=== PATIENT | female | born 1975 | race Caucasian/White ===

== ENCOUNTER 2017-04-07 17:43 | Observation (INO) | payer MEDICAID, MEDICARE ==
[~2017-04-07] VITALS: Ht 170.2 cm; Wt 109.3 kg
[~2017-04-07 17:43] MED LIST: ACET-2267 PO; ALBUNEBRX INH; ALLP300T PO; AMIT50TA3; AMIT50TA3 PO; BCL10T; BUDE6HFA IH; C250T; CEFE1VIA10 IV; CETI10TA17 PO; CHOL4PAC19 PO; CIPR-226 PO; CLIN150C17 PO; CTRZ10T; CYCL10TA9 PO; DCS100C PO; DIAZ-345 PO; DIAZ10TA; DIAZ10TA PO; DIAZ10TA3 PO; DIAZ5TAB49; DULO30CA; DULO60CA58 PO; DULO60CA6 PO; EXEN5PEN3; FAMO20TA5 PO; FEBU80TA PO; FENO135C; FENO135C PO; FENO160T3; FENO200C PO; FLUT16SP22 NS; GABA600T2 PO; GABA800T2 PO; GBPN400C; GBPN400C PO; GBPN600T; GMFB600T PO; HYOS0.3710 PO; IBP600T1 PO; IBP800T PO; INSASP10V SC; INSASP1U SC; INSU100I14 SC; INSU100I14 SQ; INSU100I16 SQ; INSU100I17 SQ; INSU100I29 SC; INSU100V3 SQ; L.AC1CAP6 PO; LACT1CAP8 PO; LD5PT TOP; LEVE1U SQ; LEVO175T3 PO; LEVO175T5 PO; LEVO175T6; LEVO500T69 PO; LIPA1CAP2 PO; LIRA0.6P SQ; LIRA0.6P2 SQ; LISI10TA PO; LORA10TA2 PO; LRT10T; LUBI24CA6 PO; LVT.025T PO; LVT.15T PO; LYRICA; MELA1TAB16 PO; MELA5TAB PO; METFORMIN; METH-53; METH4TAB PO; METH750T3; METH750T3 PO; METO-354 PO; METO10TA3 PO; METR500T PO; MNTL10T PO; MONT10TA24 PO; MTF500T; MTH750T; NAPR-243 PO; NEUROTIN; NF-METANX; OMEG1CAP PO; OMEG1CAP58 PO; OMEP40CA36 PO; ONDA4TAB2 PO; ONDN4T PO; OXC40TCR PO; OXYC-272 PO; OXYC10TA7 PO; OXYC10TA8; OXYC1TAB95 PO; OXYC40TA49 PO; OXYC60TA9 PO; PARO7.5C PO; PEG250PW; PERCOCET; PGLT30T; PHEN-452 PO; POLY17PO23 PO; POLY255P PO; PRD20T PO; RESTORIL; SENN-40 PO; SITA100T PO; SITA1TAB6; SITA1TAB6 PO; SNN187T; VARE1TAB21 PO; WRF2T; novolog SC; vancomycin
[2017-04-07] MEDS ORDERED: ONDANSETRON 4 MG/2 ML (SDV) Z0FRAN ONE (18:05)
[2017-04-07] MEDS ORDERED: NS IV 1000 ML 1,000 ML ONE (18:06)
[2017-04-07] MEDS ORDERED: NS IV 1000 ML 1,000 ML IV ONE ×2 (18:10→18:37)
--- NOTE | 2017-04-07 18:10 | ED GI ---
General Stated Complaint: BLOOD SUGAR PROBLEMS Source of Information: Patient Exam Limitations: No Limitations History of Present Illness Time Seen By Provider: 18:04 Initial Comments Patient presents to ER by ambulance by private conveyance with a chief complaint of blood sugars above 500 and nausea severe and sweats. She denies any fever she is aware of but she has a history of many back surgeries and this is given her some stronger neuropathy. She takes 60 units of Humalog in the morning as well as Terrence even says she's been taking her medicines routinely but recently had her insulin stepped up by her PCP. She has been logging her blood sugars and in the morning they're usually in the upper 200s to 300s. She is not sure why her blood sugars are out of control now. She has not been on any steroids. She quit smoking 6 months ago. She has no cough nor she short of breath or having any chest pain. She has no cardiac history. She is having urinary frequency and polydipsia The patient takes oxycodone 10 mg every 4 hours by mouth as well as OxyContin 40 mg twice a day however should not take that this morning. She is not having any pain in her abdomen. She hasn't passed use many laxatives try control her constipation from opiates and recently tried Moban take but that made her violently ill so she is not using it presently. 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 She is also short of breath today. She takes treciba 100 units with lunch and 120 units with dinner. She takes Humalog on a sliding scale but turns out she is taking about 60 units after every meal. Allergies and Home Medications Allergies Coded Allergies: Penicillins (Verified Allergy, Mild, HIVES; HAS RECEIVED ANCEF W/O PROBLEMS, 08/06/13) Home Medications Acetaminophen 500 Mg Tablet, 500 MG PO EVERY 4-6 HOURS PRN for PAIN, (Reported) Albuterol Sulfate 2.5 Mg/3 Ml Vial.neb, 2.5 MG INH QID PRN for SHORTNESS OF BREATH, (Reported) Budesonide/Formoterol Fumarate 10.2 Gm Hfa.aer.ad, 2 PUFF IH BID PRN for SHORTNESS OF BREATH, (Reported) Duloxetine HCl 60 Mg Capsule.dr, 60 MG PO HS, (Reported) Febuxostat 80 Mg Tablet, 80 MG PO HS, (Reported) Fenofibrate,Micronized 200 Mg Capsule, 200 MG PO HS, (Reported) Insulin Aspart 300 Units/3 Ml Solution, SC AC, (Reported) Insulin Detemir 100 Unit/1 Ml Insuln.pen, 100 UNITS SC BID, #30 Prescribed by: BENNETT WILSON on 05/20/15 1304 L.acidoph & Paracasei,B.lactis 1 Each Capsule, 1 CAP PO DAILY, (Reported) Levothyroxine Sodium 175 Mcg Tablet, 175 MCG PO HS, (Reported) Lipase/Protease/Amylase 1 Each Capsule.dr, 4 CAP PO AC, (Reported) Loratadine 10 Mg Tablet, 10 MG PO HS, (Reported) Lubiprostone 24 Mcg Capsule, 24 MCG PO HS, (Reported) Montelukast Sodium 10 Mg Tablet, 10 MG PO HS, (Reported) Omeprazole 40 Mg Capsule.dr, 40 MG PO HS, (Reported) Oxycodone HCl 40 Mg Tab.er.12h, 40 MG PO BID, (Reported) Oxycodone HCl 10 Mg Tablet, 10 MG PO Q4H PRN for PAIN, (Reported) Review of Systems Constitutional: chills, diaphoresis, dizziness, No fever, malaise, weakness EENTM: Blurred Vision (chronic), No Double Vision, No Eye Pain Respiratory: Denies Cough, Denies Shortness of Air Cardiovascular: Denies Chest Pain, Denies Edema Gastrointestinal: Denies Abdomen Distended, Denies Abdominal Pain, Constipated , Denies Diarrhea, Nausea, Denies Vomiting Genitourinary: Denies Burning, Denies Discharge, Denies Flank Pain, Denies Hematuria Skin: No pruritus, No rash Psychiatric/Neurological: Denies Headache, Denies Numbness, Denies Paresthesia , Pre-Existing Deficit (ambulates with a cane), Weakness Hematologic/Lymphatic: Easy Bleeding, Easy Bruising Past Jmckarb-Wneiad-Ypdryk Hx Patient Social History Alcohol Use: Occasionally Uses Recent Foreign Travel: No Contact w/Someone Who Travel: No Immunizations Up To Date Tetanus Booster (TDap): Unknown PED Vaccines UTD: Yes Date of Pneumonia Vaccine: Sep 04, 2012 Date of Influenza Vaccine: Jul 03, 2013 Surgeries HX Surgeries: Yes (DALI FILTER , back surgeries, thyroid nodule removed) Surgeries: Neurological, Orthopedic Respiratory Hx Respiratory Disorders: Yes (uses inhaler) Respiratory Disorders: Asthma Cardiovascular Hx Cardiac Disorders: No Cardiac Disorders: Deep Vein Thrombosis, Hypertension Neurological Hx Neurological Disorders: Yes (neuropathy) Neurological Disorders: Paralysis Reproductive System Hx Reproductive Disorders: Yes (polycystic ovarian syndrome) Sexually Transmitted Disease: No HIV/AIDS: No Female Reproductive Disorders: Polycystic Ovarian Dis Genitourinary Hx Genitourinary Disorders: Yes (stress incont) Genitourinary Disorders: UTI-Chronic Gastrointestinal Hx Gastrointestinal Disorders: No Gastrointestinal Disorders: Chronic Constipation Musculoskeletal Hx Musculoskeletal Disorders: Yes Musculoskeletal Disorders: Chronic Back Pain, Gout Endocrine Hx Endocrine Disorders: Yes Endocrine Disorders: Diabetes, Insulin dep, Hypothyroidsim HEENT HX ENT Disorders: No Loss of Vision: Denies Hearing Impairment: Denies Cancer Hx Cancer: No Psychosocial Hx Psychiatric Problems: Yes Behavioral Health Disorders: Depression Integumentary HX Skin/Integumentary Disorder: Yes (rash that has developed over past few days ) Skin/Integumentary Disorders: Recent Skin Changes Blood Transfusions Hx Blood Disorders: Yes ( DVT IN LEGS AND ARMS, DALI FILTER) Adverse Reaction to a Blood Tr: No Family Medical History Family Medial History: Human immunodeficiency virus (HIV) seropositivity 03 FATHER No Family History of: Cancer Family history: Cardiovascular disease Family history: Gastrointestinal disease History of - respiratory disease Physical Exam Vital Signs VS - Last 72 Hours, by Label 04/07/17 17:55 Temp 95.3 Pulse 87 Resp 18 B/P (MAP) 186/95 Pulse Ox 95 O2 Delivery Nasal Cannula O2 Flow Rate 4.00 Capillary Refill : General Appearance: WD/WN, mild distress, obese HEENT: PERRL/EOMI, normal ENT inspection, TMs normal, pharynx normal Neck: non-tender, supple Respiratory: lungs clear, normal breath sounds Cardiovascular: normal peripheral pulses, regular rate, rhythm Peripheral Pulses: 2+ Dorsalis Pedis (R), 2+ Left Dors-Pedis (L) Gastrointestinal: normal bowel sounds, non tender, soft, no organomegaly Extremities: normal range of motion, non-tender, normal inspection, no pedal edema, no calf tenderness, normal capillary refill Back: normal inspection, no CVA tenderness Neurologic/Psychiatric: line dancer II-XII nml as tested, alert, oriented x 3 Skin: normal color, warm/dry, diaphoresis Focused Exam Lactic Acid Level Laboratory Tests Test 04/07/17 18:00 Lactic Acid Level 3.42 MMOL/L (0.50-2.00) *H Progress/Results/Core Measures Results/Orders Lab Results Laboratory Tests Test 04/07/17 18:00 04/07/17 18:46 04/07/17 19:50 Range/Units White Blood Count 5.8 4.3-11.0 10^3/uL Red Blood Count 5.32 4.35-5.85 10^6/uL Hemoglobin 15.3 11.5-16.0 G/DL Hematocrit 45 35-52 % Mean Corpuscular Volume 84 80-99 FL Mean Corpuscular Hemoglobin 29 25-34 PG Mean Corpuscular Hemoglobin Concent 34 32-36 G/DL Red Cell Distribution Width 12.4 10.0-14.5 % Platelet Count 221 130-400 10^3/uL Mean Platelet Volume 10.1 7.4-10.4 FL Neutrophils (%) (Auto) 49 42-75 % Lymphocytes (%) (Auto) 43 12-44 % Monocytes (%) (Auto) 5 0-12 % Eosinophils (%) (Auto) 3 0-10 % Basophils (%) (Auto) 1 0-10 % Neutrophils # (Auto) 2.9 1.8-7.8 X 10^3 Lymphocytes # (Auto) 2.5 1.0-4.0 X 10^3 Monocytes # (Auto) 0.3 0.0-1.0 X 10^3 Eosinophils # (Auto) 0.2 0.0-0.3 10^3/uL Basophils # (Auto) 0.0 0.0-0.1 10^3/uL Prothrombin Time 12.7 12.2-14.7 SEC INR Comment 1.0 0.8-1.4 Activated Partial Thromboplast Time 25 24-35 SEC D-Dimer 0.53 H 0.00-0.49 UG/ML Sodium Level 137 135-145 MMOL/L Potassium Level 4.0 3.6-5.0 MMOL/L Chloride Level 99 98-107 MMOL/L Carbon Dioxide Level 21 21-32 MMOL/L Anion Gap 17 H 5-14 MMOL/L Blood Urea Nitrogen 18 7-18 MG/DL Creatinine 1.02 0.60-1.30 MG/DL Estimat Glomerular Filtration Rate 59 BUN/Creatinine Ratio 18 Glucose Level 391 H 70-105 MG/DL Lactic Acid Level 3.42 *H 0.50-2.00 MMOL/L Calcium Level 10.1 8.5-10.1 MG/DL Phosphorus Level 3.7 2.3-4.7 MG/DL Magnesium Level 1.8 1.8-2.4 MG/DL Total Bilirubin 0.3 0.1-1.0 MG/DL Aspartate Amino Transf (AST/SGOT) 52 H 5-34 U/L Alanine Aminotransferase (ALT/SGPT) 46 0-55 U/L Alkaline Phosphatase 91 40-136 U/L Troponin I < 0.30 <0.30 NG/ML C-Reactive Protein High Sensitivity 0.28 0.00-0.50 MG/DL Total Protein 7.5 6.4-8.2 GM/DL Albumin 4.3 3.2-4.5 GM/DL Lipase 51 8-78 U/L Thyroid Stimulating Hormone (TSH) 0.93 0.35-4.94 UIU/ML Serum Alcohol < 10 <10 MG/DL Blood Gas Puncture Site LT RADIAL Blood Gas Patient Temperature 97.3 Arterial Blood pH 7.37 7.37-7.43 Arterial Blood Partial Pressure CO2 47 H 35-45 MMHG Arterial Blood Partial Pressure O2 94 H 79-93 MMHG Arterial Blood HCO3 27 23-27 MMOL/L Arterial Blood Total CO2 28.3 21.0-31.0 MMOL/L Arterial Blood Oxygen Saturation 98 94-100 % Arterial Blood Base Excess 1.9 -2.5-2.5 MMOL/L Turner Test YES-POS Blood Gas Ventilator Setting NO Blood Gas Inspired Oxygen 3L NC My Orders Orders - ALESSANDRA SALCIDO Ondansetron Injection (Zofran Injectio (04/07/17 18:05) Ns Iv 1000 Ml (Sodium Chloride 0.9%) (04/07/17 18:06) Alcohol (04/07/17 18:10) Arterial Blood Gas (04/07/17 18:10) Cbc With Automated Diff (04/07/17 18:10) Comprehensive Metabolic Panel (04/07/17 18:10) Drug Screen Stat (Urine) (04/07/17 18:10) Hcg,Qualitative Urine (04/07/17 18:10) Lactic Acid Analyzer (04/07/17 18:10) Lipase (04/07/17 18:10) Magnesium (04/07/17 18:10) Thyroid Stimulating Hormone (04/07/17 18:10) Troponin I (04/07/17 18:10) Ua Culture If Indicated (04/07/17 18:10) Phosphorus (04/07/17 18:10) Abdomen/Kub 1view (04/07/17 18:10) Saline Lock/Iv-Start (04/07/17 18:10) Ns Iv 1000 Ml (Sodium Chloride 0.9%) (04/07/17 18:10) Blood Culture (04/07/17 18:10) Sputum Culture (04/07/17 18:10) Protime With Inr (04/07/17 18:10) Partial Thromboplastin Time (04/07/17 18:10) O2 (04/07/17 18:10) Ondansetron Injection (Zofran Injectio (04/07/17 18:15) Saline Lock/Iv-Start (04/07/17 18:10) Vital Signs Adult Sepsis Patie Q1HR (04/07/17 18:10) Remove Rings In Anticipation O (04/07/17 18:10) Ekg Tracing (04/07/17 18:10) Accucheck Q1hr Q1HR (04/07/17 18:10) Ondansetron Injection (Zofran Injectio (04/07/17 18:30) Hs C Reactive Protein (04/07/17 18:29) Fibrin Degradation Products (04/07/17 18:29) Saline Lock/Iv-Start (04/07/17 18:37) Ns Iv 1000 Ml (Sodium Chloride 0.9%) (04/07/17 18:37) Cefepime Injection (Maxipime Injection) (04/07/17 18:37) Vancomycin Injection (Vancomycin Injecti (04/07/17 18:37) Ondansetron Injection (Zofran Injectio (04/07/17 19:00) Ct Angio Chest W (04/07/17 18:56) Iohexol Injection (Omnipaque 350 Mg/Ml 1 (04/07/17 19:00) Ns Iv 1000 Ml (Sodium Chloride 0.9%) (04/07/17 19:15) Medications Given in ED Current Medications Medications Dose Ordered Sig/Wing Route Start Time Stop Time Status Last Admin Dose Admin Ondansetron HCl 4 mg ONCE ONCE IVP 04/07/17 18:30 04/07/17 18:31 DC 04/07/17 18:30 4 MG Ondansetron HCl 4 mg ONCE ONCE IVP 04/07/17 19:00 04/07/17 19:01 DC 04/07/17 19:46 4 MG Ondansetron HCl 4 mg ONCE PRN IVP 04/07/17 18:15 04/07/17 18:36 DC 04/07/17 18:15 4 MG Sodium Chloride 1,000 ml @ 0 mls/hr Q0M ONCE IV 04/07/17 18:10 04/07/17 18:15 DC 04/07/17 18:15 1,000 MLS/HR Sodium Chloride 1,000 ml @ 0 mls/hr Q0M ONCE IV 04/07/17 18:37 04/07/17 18:40 DC 04/07/17 18:50 1,000 MLS/HR Vital Signs/I&O Vital Sign - Last 12Hours 04/07/17 17:55 Temp 95.3 Pulse 87 Resp 18 B/P (MAP) 186/95 Pulse Ox 95 O2 Delivery Nasal Cannula O2 Flow Rate 4.00 Progress Note #1: Time: 18:27 Progress Note We'll work her up for potential DKA versus hyperosmolar hyperglycemia. She is a type II diabetic. We'll also look for a reason for why her blood sugars been high as of late. Does not appear to be from iatrogenic steroids. Look for cardiac or infectious reasons. Blood cultures lactate EKG chest x-ray and an abdominal flat plate. Progress Note #2: Time: 18:36 Progress Note Patient was having some hypoxia in the upper 80s satting on room air is restart her on some oxygen was added fibrin degradation product as well as a CRP to look for infectious versus blood clot cause. She is relatively immobile secondary to her back pain but she does walk. Her lactate came back 3.4 which could be related to DKA versus sepsis so we will go ahead and get her started with another 2 L for total of 3 and start her on some broad-spectrum antibiotics. Progress Note #3: Time: 18:58 Progress Note Patient's d-dimer is elevated she is a little short of breath although improved on some oxygen so we'll go ahead and get a CTA angiogram of the chest rather than at chest x-ray to evaluate for potential symptomatic pulmonary embolism. Her pH is normal and while she has a little gap which would be explained by her lactic acidosis she is not in diabetic ketoacidosis at this time. She could be an hyperosmolar hyperglycemia however lab informs me that the urine osmolality is a send out and would not be back before Monday. Blood sugars 390 on the lab which is improved over 500 on Accu-Chek when she arrived. We'll continue to get her fluids and antibiotics and look for a source of her lactic acidosis. ECG Initial ECG Impression Date: Apr 07, 2017 Initial ECG Impression Time: 18:39 Initial ECG Rate: 84 Initial ECG Rhythm: Normal Sinus Initial ECG Intervals: Normal Initial ECG Impression: Normal Initial ECG Comparisson: No Previous ECG Available Comment No ST wave elevation or depression. Diagnostic Imaging Diagonstic Imaging: CT Plain Films/CT/US/NM/MRI: chest (angiogram) Comments No acute intravascular thrombus in the chest noted. Gallbladder surgically absent. No infiltrates although there is some minor left basilar atelectasis noted. NAME: JOSE D JOHN [facility] REC#: [id number] PT STATUS: REG ER : 1975 PHYSICIAN: ALESSANDRA SALCIDO MD ADMIT DATE: 04/07/17/ER Draft Date of Exam:04/07/17 CT ANGIO CHEST W PROCEDURE: CT angiography of the chest with contrast. TECHNIQUE: Multiple contiguous axial images were obtained through the chest after uneventful bolus administration of intravenous contrast. Reconstructed CTA MIP acquisitions were also performed. INDICATION: Malaise. COMPARISON: There are no previous CTA chest examinations available for comparison. FINDINGS: The plain film examination of the chest performed on 05/15/15 failed to show any sign of an acute abnormality. On this exam, there is no defect within the pulmonary arteries to indicate a pulmonary embolus. Aorta is not abnormally dilated and there is no sign of a dissection. The heart size is within normal limits. There may be a few sparse coronary artery calcifications involving the LAD. The lungs are clear. There is no sign of failure, pneumonia or a pleural effusion to suggest an acute abnormality. There is no mediastinal or hilar adenopathy. The left lobe of the thyroid seems to be surgically absent. Correlation with the patient's history would be recommended. The right lung is generally unremarkable. There is no obvious breast mass. The sections through the upper abdomen show that the liver is enlarged and of lower density than usually seen. This appearance does suggest fatty metamorphosis. The spleen is prominent, measuring 13.7 cm in length. The gallbladder is surgically absent. The bone windows show no evidence for a fracture or for a destructive lesion. There has been a prior fusion of the lumbar spine. There also seems to be a vena cava filter in place. IMPRESSION: 1. There is no evidence for an acute cardiopulmonary abnormality. In particular, there is no sign of a pulmonary embolus or a dissection. 2. The left lobe of the thyroid is surgically absent. There has also been a prior cholecystectomy. 3. The liver is enlarged and the low density appearance of the liver does suggest fatty metamorphosis. Dictated on workstation # [id number] Dict: 04/07/171944 Trans: 04/07/172002 PJE [id number] Interpreted by: WARNER BUNCH MD Electronically signed by: Reviewed: Reviewed by Me Diagonstic Imaging: Xray Plain Films/CT/US/NM/MRI: abdomen (kub) Comments Nonspecific bowel gas pattern without any evidence of a transition point. NAME: JOSE D JOHN [facility] REC#: [id number] PT STATUS: REG ER : 1975 PHYSICIAN: ALESSANDRA SALCIDO MD ADMIT DATE: 04/07/17/ER Draft Date of Exam:04/07/17 ABDOMEN/KUB 1VIEW INDICATION: High blood sugar. Does not feel well. EXAMINATION: Supine views of the abdomen were obtained. FINDINGS: Fecal material in the colon consistent with constipation. There are no abnormally dilated loops of bowel. No mass is evident. There are changes of prior laminectomy and fusion in the lumbar spine. There is no acute bony abnormality. IMPRESSION: Constipation. Dictated on workstation # [id number] Dict: 04/07/171942 Trans: 04/07/171952 PJE [id number] Interpreted by: DANTE DERAS MD Electronically signed by: Reviewed: Reviewed by Me Departure Communication Time/Spoke to Admitting Phy: 20:[address] Wilson about the patient's blood results as well as CTA angiogram and abdominal x-ray. About her history of DVTs with a [place] filter and her diabetes and her possibly having hyper or more hyper glycemic state. And her lactic acidosis. We'll start her on some fluids tonight and has initiated the prospect antibiotics as well as blood cultures place her in observation for workup. She will see the patient morning. Impression Impression: Primary Impression: Hyperglycemia Additional Impression: Hyperosmolar non-ketotic state in patient with type 2 diabetes mellitus Disposition: ADMITTED INPATIENT (obs) Condition: Stable Decision to Admit Reason: Admit from ER (General) Decision to Admit/Date: Apr 07, 2017 Time/Decision to Admit Time: 20:12 Departure-Patient Inst. Referrals: BENNETT WILSON DO (PCP/Family) Primary Care Physician Copy Copies To 1: BENNETT WILSON TITUS J Apr 07, 2017 18:10
[2017-04-07] MEDS ORDERED: ONDANSETRON 4 MG/2 ML (SDV) Z0FRAN IVP PRN (18:15)
[2017-04-07 18:22] LABS: BASOPHILS % (AUTO) 1 % (0-10); EOSINOPHILS # (AUTO) 0.2 10^3/uL (0.0-0.3); EOSINOPHILS % (AUTO) 3 % (0-10); LYMPHOCYTES # (AUTO) 2.5 X 10^3 (1.0-4.0); LYMPHOCYTES % (AUTO) 43 % (12-44); MEAN CORPUSCULAR HEMOGLOBIN 29 PG (25-34); MEAN CORPUSCULAR HGB CONC 34 G/DL (32-36); MEAN CORPUSCULAR VOLUME 84 FL (80-99); MEAN PLATELET VOLUME 10.1 FL (7.4-10.4); MONOCYTES # (AUTO) 0.3 X 10^3 (0.0-1.0); MONOCYTES % (AUTO) 5 % (0-12); NEUTROPHILS # (AUTO) 2.9 X 10^3 (1.8-7.8); NEUTROPHILS % (AUTO) 49 % (42-75); PLATELET COUNT 221 10^3/uL (130-400); RED BLOOD COUNT 5.32 10^6/uL (4.35-5.85); RED CELL DISTRIBUTION WIDTH 12.4 % (10.0-14.5); WHITE BLOOD COUNT 5.8 10^3/uL (4.3-11.0)
[2017-04-07 18:27] LABS: PROTHROMBIN TIME PATIENT 12.7 SEC (12.2-14.7)
[2017-04-07] MEDS ORDERED: ONDANSETRON 4 MG/2 ML (SDV) Z0FRAN IVP ONE ×2 (18:30→19:00)
[2017-04-07] MEDS ORDERED: VANCOMYCIN INJECTION 2,000 MG in NS IV 500 ML 500 ML IV STA (18:37)
[2017-04-07] MEDS ORDERED: CEFEPIME INJECTION 2,000 MG in NS (IVPB) 50 ML IV STA (18:37)
[2017-04-07 18:44] LABS: ALANINE AMINOTRANSFERASE 46 U/L (0-55); ALBUMIN 4.3 GM/DL (3.2-4.5); ALCOHOL < 10 MG/DL (<10); ANION GAP 17 MMOL/L (5-14); ASPARTATE AMINO TRANSFERASE 52 U/L (5-34); BILIRUBIN,TOTAL 0.3 MG/DL (0.1-1.0); BLOOD UREA NITROGEN 18 MG/DL (7-18); BUN/CREATININE RATIO 18; CALCIUM 10.1 MG/DL (8.5-10.1); CARBON DIOXIDE 21 MMOL/L (21-32); CHLORIDE 99 MMOL/L (98-107); CREATININE SERUM 1.02 MG/DL (0.60-1.30); GFR ESTIMATED 59; GLUCOSE 391 MG/DL (70-105); LIPASE 51 U/L (8-78); MAGNESIUM 1.8 MG/DL (1.8-2.4); PHOSPHORUS 3.7 MG/DL (2.3-4.7); SODIUM 137 MMOL/L (135-145); TOTAL PROTEIN 7.5 GM/DL (6.4-8.2)
[2017-04-07 18:53] LABS: ABG BASE EXCESS 1.9 MMOL/L (-2.5-2.5); ABG HCO3 27 MMOL/L (23-27); ABG OXYGEN SATURATION 98 % (94-100); ABG PCO2 47 MMHG (35-45); ABG PH 7.37 (7.37-7.43); ABG PO2 94 MMHG (79-93); ABG TCO2 28.3 MMOL/L (21.0-31.0)
[2017-04-07 18:54] LABS: ALLENS TEST YES-POS; PATIENT TEMP 97.3
[2017-04-07 18:57] LABS: THYROID STIMULATING HORMONE 0.93 UIU/ML (0.35-4.94); TROPONIN I < 0.30 NG/ML (<0.30)
[2017-04-07] MEDS ORDERED: IOHEXOL 350 MG/ML 150 ML (OMNIPAQUE 350) VIAL IV ONE (19:00)
[2017-04-07] MEDS ORDERED: NS IV 1000 ML 1,000 ML IV SCH (19:15)
--- NOTE | 2017-04-07 19:53 | Diagnostic Imaging Report ---
INDICATION: High blood sugar. Does not feel well. EXAMINATION: Supine views of the abdomen were obtained. FINDINGS: Fecal material in the colon consistent with constipation. There are no abnormally dilated loops of bowel. No mass is evident. There are changes of prior laminectomy and fusion in the lumbar spine. There is no acute bony abnormality. IMPRESSION: Constipation. Dictated by: Dictated on workstation # [id number]
--- NOTE | 2017-04-07 20:03 | Diagnostic Imaging Report ---
PROCEDURE: CT angiography of the chest with contrast. TECHNIQUE: Multiple contiguous axial images were obtained through the chest after uneventful bolus administration of intravenous contrast. Reconstructed CTA MIP acquisitions were also performed. INDICATION: Malaise. COMPARISON: There are no previous CTA chest examinations available for comparison. FINDINGS: The plain film examination of the chest performed on 05/15/15 failed to show any sign of an acute abnormality. On this exam, there is no defect within the pulmonary arteries to indicate a pulmonary embolus. Aorta is not abnormally dilated and there is no sign of a dissection. The heart size is within normal limits. There may be a few sparse coronary artery calcifications involving the LAD. The lungs are clear. There is no sign of failure, pneumonia or a pleural effusion to suggest an acute abnormality. There is no mediastinal or hilar adenopathy. The left lobe of the thyroid seems to be surgically absent. Correlation with the patient's history would be recommended. The right lung is generally unremarkable. There is no obvious breast mass. The sections through the upper abdomen show that the liver is enlarged and of lower density than usually seen. This appearance does suggest fatty metamorphosis. The spleen is prominent, measuring 13.7 cm in length. The gallbladder is surgically absent. The bone windows show no evidence for a fracture or for a destructive lesion. There has been a prior fusion of the lumbar spine. There also seems to be a vena cava filter in place. IMPRESSION: 1. There is no evidence for an acute cardiopulmonary abnormality. In particular, there is no sign of a pulmonary embolus or a dissection. 2. The left lobe of the thyroid is surgically absent. There has also been a prior cholecystectomy. 3. The liver is enlarged and the low density appearance of the liver does suggest fatty metamorphosis. Dictated by: Dictated on workstation # [id number]
[2017-04-07 20:04] LABS: BILIRUBIN,URINE NEGATIVE (NEGATIVE); KETONES,URINE NEGATIVE (NEGATIVE); LEUKOCYTE ESTERASE ,URINE 2+ (NEGATIVE); NITRITE,URINE NEGATIVE (NEGATIVE); PH,URINE 6.5 (5-9); PROTEIN,URINE NEGATIVE (NEGATIVE); UROBILINOGEN,URINE NORMAL (NORMAL)
[2017-04-07] MEDS: NS IV 1000 ML 1,000 ML IV SCH (21:59)
[2017-04-07] MEDS: oxyCODONE/APAP 10/325MG (PERCOCET 10) TABLET PO PRN (21:59)
[2017-04-07] MEDS ORDERED: PROMETHAZINE INJ 25 MG/ML (PHENERGAN) AMP IM PRN (22:00)
[2017-04-07] MEDS ORDERED: CATHETER FLUSH 10 ML SYR IV PRN (22:00)
[2017-04-07] MEDS ORDERED: ONDANSETRON 4 MG/2 ML (SDV) Z0FRAN IV PRN (22:00)
[2017-04-07] MEDS ORDERED: oxyCODONE ER 40 MG (oxyCONTIN CR) TAB PO PRN (22:00)
[2017-04-07] MEDS: CATHETER FLUSH 10 ML SYR IV SCH (22:35)
[2017-04-08] VITALS (7 sets, daily range): BP systolic 116–165; BP diastolic 57–76
[2017-04-08 04:57] LABS: BASOPHILS % (AUTO) 0 % (0-10); EOSINOPHILS # (AUTO) 0.1 10^3/uL (0.0-0.3); EOSINOPHILS % (AUTO) 3 % (0-10); LYMPHOCYTES # (AUTO) 2.5 X 10^3 (1.0-4.0); LYMPHOCYTES % (AUTO) 54 % (12-44); MEAN CORPUSCULAR HEMOGLOBIN 29 PG (25-34); MEAN CORPUSCULAR HGB CONC 34 G/DL (32-36); MEAN CORPUSCULAR VOLUME 86 FL (80-99); MONOCYTES # (AUTO) 0.4 X 10^3 (0.0-1.0); MONOCYTES % (AUTO) 8 % (0-12); NEUTROPHILS # (AUTO) 1.6 X 10^3 (1.8-7.8); NEUTROPHILS % (AUTO) 35 % (42-75); PLATELET COUNT 165 10^3/uL (130-400); RED BLOOD COUNT 4.55 10^6/uL (4.35-5.85); RED CELL DISTRIBUTION WIDTH 12.1 % (10.0-14.5); WHITE BLOOD COUNT 4.7 10^3/uL (4.3-11.0)
[2017-04-08 05:23] LABS: ANION GAP 11 MMOL/L (5-14); BLOOD UREA NITROGEN 13 MG/DL (7-18); BUN/CREATININE RATIO 17; CALCIUM 8.3 MG/DL (8.5-10.1); CARBON DIOXIDE 22 MMOL/L (21-32); CHLORIDE 107 MMOL/L (98-107); CREATININE SERUM 0.75 MG/DL (0.60-1.30); GFR ESTIMATED > 60; GLUCOSE 157 MG/DL (70-105); POTASSIUM 4.1 MMOL/L (3.6-5.0); SODIUM 140 MMOL/L (135-145)
[2017-04-08] MEDS: CATHETER FLUSH 10 ML SYR IV SCH ×3 (06:04→21:46)
[2017-04-08] MEDS: NS IV 1000 ML 1,000 ML IV SCH ×3 (06:04→22:20)
[2017-04-08] MEDS: inSUlin ASPART (NovoLOG) 1 UNIT/0.01 ML (CHARGE PER UNIT) SC SCH ×7 (06:46→20:44)
[2017-04-08] MEDS: POLYETHYLENE GLYCOL 17 GM (MIRALAX) PACK PO SCH ×2 (08:20→08:29)
[2017-04-08] MEDS: oxyCODONE/APAP 10/325MG (PERCOCET 10) TABLET PO PRN ×3 (08:20→19:15)
[2017-04-08] MEDS: inSUlin DETERMIR 1 UNIT/0.01 ML (LEVEMIR) CHARGE PER UNIT SQ SCH ×2 (08:20→20:43)
[2017-04-08] MEDS ORDERED: PANTOPRAZOLE 40 MG/10 ML (PROTONIX) VIAL IV NR (11:30)
[2017-04-08] MEDS ORDERED: SENNA W/DOCUSATE (SENOKOT S) TABLET PO NR (11:30)
[2017-04-08] MEDS ORDERED: MILK OF MAGNESIA 400 MG/5 ML 30 ML UDC PO NR (11:30)
[2017-04-08] MEDS ORDERED: POLYETHYLENE GLYCOL 17 GM (MIRALAX) PACK PO NR (11:30)
[2017-04-08] MEDS ORDERED: LEVOTHYROXINE 75 MCG (LEVOTHROID) TABLET PO NR (11:30)
[2017-04-08] MEDS ORDERED: LEVOTHYROXINE 100 MCG (LEVOTHROID) TAB PO NR (11:30)
--- NOTE | 2017-04-08 11:35 | History & Physicial ---
History of Present Illness History of Present Illness Reason for visit/HPI This is a 41 year old female with a history of uncontrolled diabetes mellitus-- insulin requiring--who presented to the emergency room with worsening blood sugars up to 500, nausea and sweats. She was found to have a blood sugar in the 300s in the emergency room with an elevated lactic acid but was afebrile with no elevated WBC count. She was found to have a UTI. She had to be given 12mg of zofran IV in the emergency room to control her nausea. It was decided to admit her for further evaluation and treatment. Date of Admission Apr 07, 2017 at 19:10 Date Seen by Provider: Apr 08, 2017 Time Seen by Provider: 11:30 I consulted on this patient on 04/08/17 11:30 Attending Physician Nuvia Wilson DO Admitting Physician Nuvia Wilson DO Consult Allergies and Home Medications Allergies Coded Allergies: Penicillins (Verified Allergy, Mild, HIVES; HAS RECEIVED ANCEF W/O PROBLEMS, 08/06/13) Home Medications Acetaminophen 500 Mg Tablet, 500 MG PO EVERY 4-6 HOURS PRN for PAIN, (Reported) Albuterol Sulfate 2.5 Mg/3 Ml Vial.neb, 2.5 MG INH QID PRN for SHORTNESS OF BREATH, (Reported) Budesonide/Formoterol Fumarate 10.2 Gm Hfa.aer.ad, 2 PUFF IH BID PRN for SHORTNESS OF BREATH, (Reported) Duloxetine HCl 60 Mg Capsule.dr, 60 MG PO HS, (Reported) Febuxostat 80 Mg Tablet, 80 MG PO HS, (Reported) Fenofibrate,Micronized 200 Mg Capsule, 200 MG PO HS, (Reported) Insulin Aspart 300 Units/3 Ml Solution, SC AC, (Reported) Insulin Detemir 100 Unit/1 Ml Insuln.pen, 100 UNITS SC BID, #30 Prescribed by: NUVIA WILSON on 05/20/15 1304 L.acidoph & Paracasei,B.lactis 1 Each Capsule, 1 CAP PO DAILY, (Reported) Levothyroxine Sodium 175 Mcg Tablet, 175 MCG PO HS, (Reported) Lipase/Protease/Amylase 1 Each Capsule.dr, 4 CAP PO AC, (Reported) Loratadine 10 Mg Tablet, 10 MG PO HS, (Reported) Lubiprostone 24 Mcg Capsule, 24 MCG PO HS, (Reported) Montelukast Sodium 10 Mg Tablet, 10 MG PO HS, (Reported) Omeprazole 40 Mg Capsule.dr, 40 MG PO HS, (Reported) Oxycodone HCl 40 Mg Tab.er.12h, 40 MG PO BID, (Reported) Oxycodone HCl 10 Mg Tablet, 10 MG PO Q4H PRN for PAIN, (Reported) Past Dosyvtk-Jpojmf-Zjsxeb Hx Patient Social History Alcohol Use: Occasionally Uses Recreational Drug Use: No Smoking Status: Former Smoker Type Used: Cigarettes Physical Abuse Screen: No Sexual Abuse: No Recent Foreign Travel: No Contact w/other who traveled: No Recent Hopitalizations: No (SURGERIES) Recent Infectious Disease Expo: No Immunizations Up To Date Tetanus Booster (TDap): Unknown Date of Pneumonia Vaccine: Sep 04, 2012 Date of Influenza Vaccine: Jul 03, 2013 Surgeries HX Surgeries: Yes (DALI FILTER , back surgeries, thyroid nodule removed) Surgeries: Neurological, Orthopedic Respiratory Hx Respiratory Disorders: Yes (uses inhaler) Cardiovascular Hx Cardiovascular Disorders: No Cardiac Disorders: Deep Vein Thrombosis, Hypertension Neurological Hx Neurological Disorders: Yes (neuropathy) Neurological Disorders: Paralysis Reproductive System Hx Reproductive Disorders: Yes (polycystic ovarian syndrome) Sexually Transmitted Disease: No HIV/AIDS: No Female Reproductive Disorders: Polycystic Ovarian Dis Genitourinary Hx Genitourinary Disorders: Yes (stress incont) Genitourinary Disorders: UTI-Chronic Gastrointestinal Hx Gastrointestinal Disorders: No Gastrointestinal Disorders: Chronic Constipation Musculoskeletal Hx Musculoskeletal Disorders: Yes Musculoskeletal Disorders: Foot Drop, Chronic Back Pain, Gout Endocrine Hx Endocrine Disorders: Yes Endocrine Disorders: Diabetes, Insulin dep, Hypothyroidsim HEENT HX ENT Disorders: No Loss of Vision: Denies Hearing Impairment: Denies Cancer Hx Cancer: No Psychosocial Hx Psychiatric Problems: Yes Behavioral Health Disorders: Anxiety, Depression Integumentary HX Skin/Integumentary Disorder: Yes (rash that has developed over past few days ) Skin/Integumentary Disorders: Recent Skin Changes Blood Transfusions Hx Blood Disorders: Yes ( DVT IN LEGS AND ARMS, DALI FILTER) Adverse Reaction to a Blood Tr: No Family Medical History Family Hx: Human immunodeficiency virus (HIV) seropositivity 03 FATHER No Family History of: Cancer Family history: Cardiovascular disease Family history: Gastrointestinal disease History of - respiratory disease Constitutional: diaphoresis, weakness EENTM: No blurred vision, No dental problems, No double vision, No ear discharge, No ear pain, No epistaxis, No eye pain, No hearing loss, No hoarseness, No mouth pain, No mouth swelling, No no symptoms reported, No nose congestion, No nose pain, No other, No see HPI, No tearing, No throat pain, No throat swelling, No vision loss Respiratory: No no symptoms reported, No see HPI, No cough, No dyspnea on exertion, No hemoptysis, No orthopnea, No phlegm, No short of breath, No stridor , No wheezing, No other Cardiovascular: No no symptoms reported, No see HPI, No chest pain, No edema, No Hx of Intervention, No palpitations, No syncope, No vascular heart diseas, No other Gastrointestinal: constipation, nausea Genitourinary: No no symptoms reported, No see HPI, No decreased output, No discharge, No dysuria, No frequency, No hematuria, No hesitancy, No incontinence , No nocturia, No pain, No other Musculoskeletal: back pain, muscle weakness Skin: No no symptoms reported, No see HPI, No change in color, No change in hair/nails, No dryness, No hx of skin cancer, No lesions, No lumps, No pruritus , No rash, No other Psychiatric/Neurological: Numbness, Paresthesia, Pre-Existing Deficit, Weakness Physical Exam Vital Signs Vital Sign - Last 12Hours 04/07/17 17:55 Temp 95.3 Pulse 87 Resp 18 B/P (MAP) 186/95 Pulse Ox 95 O2 Delivery Nasal Cannula O2 Flow Rate 4.00 Capillary Refill : Less Than 3 Seconds General Appearance: No Apparent Distress HEENT: Normal ENT Inspection Neck: Supple Respiratory: Lungs Clear Cardiovascular: Regular Rate, Rhythm Gastrointestinal: Normal Bowel Sounds, Non Tender, Soft Rectal: Deferred Back: No CVA Tenderness Extremity: Non Tender, No Calf Tenderness, No Pedal Edema Neurologic/Psychiatric: Alert, Oriented x3 Skin: Normal Color, Warm/Dry Comments Laboratory Tests 04/07/17 18:00: White Blood Count 5.8, Red Blood Count 5.32, Hemoglobin 15.3, Hematocrit 45, Mean Corpuscular Volume 84, Mean Corpuscular Hemoglobin 29, Mean Corpuscular Hemoglobin Concent 34, Red Cell Distribution Width 12.4, Platelet Count 221, Mean Platelet Volume 10.1, Neutrophils (%) (Auto) 49, Lymphocytes (%) (Auto) 43 , Monocytes (%) (Auto) 5, Eosinophils (%) (Auto) 3, Basophils (%) (Auto) 1, Neutrophils # (Auto) 2.9, Lymphocytes # (Auto) 2.5, Monocytes # (Auto) 0.3, Eosinophils # (Auto) 0.2, Basophils # (Auto) 0.0, Prothrombin Time 12.7, INR Comment 1.0, Activated Partial Thromboplast Time 25, D-Dimer 0.53H, Sodium Level 137, Potassium Level 4.0, Chloride Level 99, Carbon Dioxide Level 21, Anion Gap 17H, Blood Urea Nitrogen 18, Creatinine 1.02, Estimat Glomerular Filtration Rate 59, BUN/Creatinine Ratio 18, Glucose Level 391H, Lactic Acid Level 3.42*H, Calcium Level 10.1, Phosphorus Level 3.7, Magnesium Level 1.8, Total Bilirubin 0.3, Aspartate Amino Transf (AST/SGOT) 52H, Alanine Aminotransferase (ALT/SGPT) 46, Alkaline Phosphatase 91, Troponin I < 0.30, C- Reactive Protein High Sensitivity 0.28, Total Protein 7.5, Albumin 4.3, Lipase 51, Thyroid Stimulating Hormone (TSH) 0.93, Serum Alcohol < 10 04/07/17 18:46: Blood Gas Puncture Site LT RADIAL, Blood Gas Patient Temperature 97.3, Arterial Blood pH 7.37, Arterial Blood Partial Pressure CO2 47H, Arterial Blood Partial Pressure O2 94H, Arterial Blood HCO3 27, Arterial Blood Total CO2 28.3, Arterial Blood Oxygen Saturation 98, Arterial Blood Base Excess 1.9, Turner Test YES-POS, Blood Gas Ventilator Setting NO, Blood Gas Inspired Oxygen 3L ME 04/07/17 19:50: Urine Color YELLOW, Urine Clarity CLEAR, Urine pH 6.5, Urine Specific [place] 1.010L, Urine Protein NEGATIVE, Urine Glucose (UA) 4+H, Urine Ketones NEGATIVE, Urine Nitrite NEGATIVE, Urine Bilirubin NEGATIVE, Urine Urobilinogen NORMAL, Urine Leukocyte Esterase 2+H, Urine RBC (Auto) NEGATIVE, Urine RBC NONE, Urine WBC 5-10H, Urine Squamous Epithelial Cells 2-5, Urine Crystals NONE, Urine Bacteria FEWH, Urine Casts NONE, Urine Mucus NEGATIVE, Urine Culture Indicated YES, Urine Test NEGATIVE, Urine Opiates Screen NEGATIVE, Urine Oxycodone Screen POSITIVEH, Urine Methadone Screen NEGATIVE, Urine Propoxyphene Screen NEGATIVE, Urine Barbiturates Screen NEGATIVE, Ur Tricyclic Antidepressants Screen NEGATIVE, Urine Phencyclidine Screen NEGATIVE, Urine Amphetamines Screen NEGATIVE, Urine Methamphetamines Screen NEGATIVE, Urine Benzodiazepines Screen NEGATIVE, Urine Cocaine Screen NEGATIVE, Urine Cannabinoids Screen POSITIVEH 04/07/17 20:07: Glucometer 219H 04/07/17 20:18: Lactic Acid Level 1.55 04/07/17 22:10: Lactic Acid Level 1.53 04/08/17 04:30: White Blood Count 4.7, Red Blood Count 4.55, Hemoglobin 13.1, Hematocrit 39, Mean Corpuscular Volume 86, Mean Corpuscular Hemoglobin 29, Mean Corpuscular Hemoglobin Concent 34, Red Cell Distribution Width 12.1, Platelet Count 165, Mean Platelet Volume 10.0, Neutrophils (%) (Auto) 35L, Lymphocytes (%) (Auto) 54H, Monocytes (%) (Auto) 8, Eosinophils (%) (Auto) 3, Basophils (%) (Auto) 0, Neutrophils # (Auto) 1.6L, Lymphocytes # (Auto) 2.5, Monocytes # (Auto) 0.4, Eosinophils # (Auto) 0.1, Basophils # (Auto) 0.0, Sodium Level 140, Potassium Level 4.1, Chloride Level 107, Carbon Dioxide Level 22, Anion Gap 11, Blood Urea Nitrogen 13, Creatinine 0.75, Estimat Glomerular Filtration Rate > 60, BUN/ Creatinine Ratio 17, Glucose Level 157H, Calcium Level 8.3L Assessment/Plan Assessment and Plan 1. Diabetes mellitus--insulin requiring--uncontrolled with hyperglycemia--admit , hydrate, start levemir and humalog and monitor BS 2. Nausea--admit and give zofran prn and start protonix IV 3. UTI with elevated Lactic Acid--no sign of sepsis but will cover with abx and await culture results and monitor WBC count 4. Constipation--start Miralax, Senokot-S, MOM 5. History of Cauda Equina with Chronic Pain Syndrome and Chronic Narcotic Use- -restart oxycodone per home dose Problems: Clinical Quality Measures DVT/VTE Risk/Contraindication: Risk Factor Score Per Nursin RFS Level Per Nursing on Admit: 1=Low/No VTE PPX NUVIA WILSON DO Apr 08, 2017 11:35
[2017-04-08] MEDS: DULoxetine 30 MG (CYMBALTA) CAP PO SCH (12:03)
[2017-04-08] MEDS: SENNA W/DOCUSATE (SENOKOT S) TABLET PO SCH (20:43)
[2017-04-08] MEDS: oxyCODONE ER 40 MG (oxyCONTIN CR) TAB PO SCH (20:43)
[2017-04-08] MEDS ORDERED: POLYETHYLENE GLYCOL 17 GM (MIRALAX) PACK PO SCH (21:00)
[2017-04-09 04:00] VITALS: BP 135/71
[2017-04-09 05:18] LABS: BASOPHILS % (AUTO) 1 % (0-10); EOSINOPHILS # (AUTO) 0.1 10^3/uL (0.0-0.3); EOSINOPHILS % (AUTO) 3 % (0-10); LYMPHOCYTES # (AUTO) 2.1 X 10^3 (1.0-4.0); LYMPHOCYTES % (AUTO) 52 % (12-44); MEAN CORPUSCULAR HEMOGLOBIN 29 PG (25-34); MEAN CORPUSCULAR HGB CONC 34 G/DL (32-36); MEAN CORPUSCULAR VOLUME 86 FL (80-99); MEAN PLATELET VOLUME 9.8 FL (7.4-10.4); MONOCYTES # (AUTO) 0.3 X 10^3 (0.0-1.0); MONOCYTES % (AUTO) 7 % (0-12); NEUTROPHILS # (AUTO) 1.5 X 10^3 (1.8-7.8); NEUTROPHILS % (AUTO) 37 % (42-75); PLATELET COUNT 172 10^3/uL (130-400); RED CELL DISTRIBUTION WIDTH 12.2 % (10.0-14.5); WHITE BLOOD COUNT 4.1 10^3/uL (4.3-11.0)
[2017-04-09 05:37] LABS: ALANINE AMINOTRANSFERASE 43 U/L (0-55); ALBUMIN 3.5 GM/DL (3.2-4.5); ANION GAP 11 MMOL/L (5-14); ASPARTATE AMINO TRANSFERASE 42 U/L (5-34); BILIRUBIN,TOTAL 0.2 MG/DL (0.1-1.0); BLOOD UREA NITROGEN 11 MG/DL (7-18); BUN/CREATININE RATIO 14; CALCIUM 8.8 MG/DL (8.5-10.1); CARBON DIOXIDE 25 MMOL/L (21-32); CHLORIDE 107 MMOL/L (98-107); CREATININE SERUM 0.78 MG/DL (0.60-1.30); GFR ESTIMATED > 60; GLUCOSE 144 MG/DL (70-105); POTASSIUM 4.2 MMOL/L (3.6-5.0); SODIUM 143 MMOL/L (135-145); TOTAL PROTEIN 5.5 GM/DL (6.4-8.2)
[2017-04-09] MEDS: CATHETER FLUSH 10 ML SYR IV SCH (05:45)
[2017-04-09] MEDS: inSUlin ASPART (NovoLOG) 1 UNIT/0.01 ML (CHARGE PER UNIT) SC SCH ×4 (05:45→11:41)
[2017-04-09] MEDS: NS IV 1000 ML 1,000 ML IV SCH (05:54)
[2017-04-09] MEDS: oxyCODONE/APAP 10/325MG (PERCOCET 10) TABLET PO PRN (07:06)
[2017-04-09] MEDS: SENNA W/DOCUSATE (SENOKOT S) TABLET PO SCH (08:46)
[2017-04-09] MEDS: inSUlin DETERMIR 1 UNIT/0.01 ML (LEVEMIR) CHARGE PER UNIT SQ SCH (08:46)
[2017-04-09] MEDS: DULoxetine 30 MG (CYMBALTA) CAP PO SCH (08:46)
[2017-04-09] MEDS: oxyCODONE ER 40 MG (oxyCONTIN CR) TAB PO SCH (08:46)
[2017-04-09 08:49] VITALS: BP 125/75
[2017-04-09] MEDS ORDERED: PANTOPRAZOLE 40 MG/10 ML (PROTONIX) VIAL IV SCH (09:00)
[2017-04-09] MEDS ORDERED: CLIN300C11 PO (11:44)
[2017-04-09] MEDS ORDERED: SENN-20 PO (11:44)
--- NOTE | 2017-04-09 11:45 | Discharge Inst-Simple/Standard ---
Discharge Inst-Standard Discharge Medications New, Converted or Re-Newed RX: Transmitted to Pharmacy Patient Instructions/Follow Up Plan of Care/Instructions/FU: Fwup in 1 week Activity as Tolerated: Yes Discharge Diet: ADA BENNETT Abraham DO Apr 09, 2017 11:45 am
--- NOTE | 2017-04-09 11:51 | Discharge Summary ---
Diagnosis/Chief Complaint Date of Admission Apr 07, 2017 at 19:10 Date of Discharge Discharge Date: Apr 09, 2017 Admission Diagnosis Admission Diagnosis 1. Diabetes mellitus--insulin requiring--uncontrolled with hyperglycemia--admit , hydrate, start levemir and humalog and monitor BS 2. Nausea--admit and give zofran prn and start protonix IV 3. UTI with elevated Lactic Acid--no sign of sepsis but will cover with abx and await culture results and monitor WBC count 4. Constipation--start Miralax, Senokot-S, MOM 5. History of Cauda Equina with Chronic Pain Syndrome and Chronic Narcotic Use- -restart oxycodone per home dose Discharge Diagnosis 1. Diabetes mellitus--insulin requiring--uncontrolled with hyperglycemia--much improved 2. Nausea--resolved 3. UTI with elevated Lactic Acid--no sign of sepsis--culture growing out Lactobacillus--improved 4. Constipation--chronic but did have BM after admission 5. History of Cauda Equina with Chronic Pain Syndrome and Chronic Narcotic Use- -stable Reason Hospital Visit This is a 41 year old female with a history of uncontrolled diabetes mellitus-- insulin requiring--who presented to the emergency room with worsening blood sugars up to 500, nausea and sweats. She was found to have a blood sugar in the 300s in the emergency room with an elevated lactic acid but was afebrile with no elevated WBC count. She was found to have a UTI. She had to be given 12mg of zofran IV in the emergency room to control her nausea. It was decided to admit her for further evaluation and treatment. Discharge Summary Hospital Course Hospital Course This is a 41 year old female with a history of uncontrolled diabetes mellitus-- insulin requiring--who presented to the emergency room with worsening blood sugars up to 500, nausea and sweats. She was found to have a blood sugar in the 300s in the emergency room with an elevated lactic acid but was afebrile with no elevated WBC count. She was found to have a UTI. She had to be given 12mg of zofran IV in the emergency room to control her nausea. It was decided to admit her for further evaluation and treatment. She was admitted to the medical floor and given aggressive IVF rehydration. She had zofran prn nausea and was also started on IV protonix. Her nausea improved and she had not required any antiemetics for at least 24hrs prior to discharge. Her urine culture grew out Lactobacillus. Her blood cultures were negative. Her blood sugar was in the low 100s to a high of low 200s during her hospital stay with lower doses of insulin then she has been on as an outpatient. She did have a bowel movement after miralax and senokot. She was feeling well on the morning of discharge and was anxious to go home. Labs Laboratory Tests 04/07/17 18:00: D-Dimer 0.53H, Anion Gap 17H, Glucose Level 391H, Lactic Acid Level 3.42*H, Aspartate Amino Transf (AST/SGOT) 52H 04/07/17 18:46: Arterial Blood Partial Pressure CO2 47H, Arterial Blood Partial Pressure O2 94H 04/07/17 19:50: Urine Specific [place] 1.010L, Urine Glucose (UA) 4+H, Urine Leukocyte Esterase 2+H, Urine WBC 5-10H, Urine Bacteria FEWH, Urine Oxycodone Screen POSITIVEH, Urine Cannabinoids Screen POSITIVEH 04/07/17 20:07: Glucometer 219H 04/07/17 20:18: 04/07/17 22:10: 04/08/17 04:30: Neutrophils (%) (Auto) 35L, Lymphocytes (%) (Auto) 54H, Neutrophils # (Auto) 1.6L, Glucose Level 157H, Calcium Level 8.3L 04/08/17 08:15: Glucometer 200H 04/08/17 10:56: Glucometer 156H 04/08/17 15:46: Glucometer 177H 04/08/17 20:25: Glucometer 200H 04/09/17 04:41: White Blood Count 4.1L, Neutrophils (%) (Auto) 37L, Lymphocytes (%) (Auto) 52H, Neutrophils # (Auto) 1.5L, Glucose Level 144H, Aspartate Amino Transf (AST/SGOT ) 42H, Total Protein 5.5L Procedures None. Discharge Physical Examination Allergies: Coded Allergies: Penicillins (Verified Allergy, Mild, HIVES; HAS RECEIVED ANCEF W/O PROBLEMS, 08/06/13) Vitals & I&Os Vital Signs Date Time Temp Pulse Resp B/P (MAP) Pulse Ox O2 Delivery O2 Flow Rate FiO2 04/09/17 08:49 97.4 70 18 125/75 95 Room Air 04/07/17 17:55 4.00 General Appearance: Alert, Oriented X3, No Acute Distress Respiratory: Clear to Auscultation Cardiovascular: Regular Rate Abdominal: Normal Bowel Sounds, Soft, No Tenderness Extremities: No Clubbing, No Cyanosis, No Edema Psych/Mental Status: Mental Status NL, Mood NL Discharge Home Medications Reviewed and agree with Discharge Medication list on patient's Discharge Instruction sheet Instructions to Patient/Family Please see electonic discharge instructions given to patient. Clinical Quality Measures DVT/VTE Risk/Contraindication: Risk Factor Score Per Nursin RFS Level Per Nursing on Admit: 1=Low/No VTE PPX BENNETT CARDENAS DO Apr 09, 2017 11:51
== END 2017-04-09 11:41 | disposition home or self-care (01) ==
LOC: EDUNIT# 17:43 → ER 17:44 → 4TH 19:10 → UNDOADMOB 19:10 → 4TH 21:30 → UNDODISOB 04-09 13:05
PROVIDERS: ADMIT Family Medicine; ATTEND Family Medicine
DX: E11.65 Type 2 diabetes mellitus with hyperglycemia (principal); E87.0 Hyperosmolality and hypernatremia; N39.0 Urinary tract infection, site not specified; K59.00 Constipation, unspecified; E03.9 Hypothyroidism, unspecified; R16.0 Hepatomegaly, not elsewhere classified; E66.9 Obesity, unspecified; I10 Essential (primary) hypertension; G89.29 Other chronic pain; Z79.4 Long term (current) use of insulin; Z79.891 Long term (current) use of opiate analgesic; Z79.899 Other long term (current) drug therapy; Z90.49 Acquired absence of other specified parts of digestive tract; Z95.828 Presence of other vascular implants and grafts; Z87.891 Personal history of nicotine dependence; Z86.718 Personal history of other venous thrombosis and embolism
CPT/HCPCS: 36415; 71275; 74000; 80048; 80053; 80306; 80320; 81000; 82805; 82962; 83605; 83690; 83735; 84100; 84443; 84484; 84703; 85025; 85379; 85610; 85730; 86141; 87040; 87088; 93005; 96361; 96365; 96367; 96375; 96376; G0378

== ENCOUNTER → 2017-05-23 | Outpatient (CLI) | payer MEDICAID, MEDICARE ==
[~2017-05-23] MED LIST changes: +CLIN300C11 PO; +SENN-20 PO
--- NOTE | 2017-05-23 15:30 | Diagnostic Imaging Report ---
EXAM: 3 views of the right elbow. INDICATION: Right elbow pain. FINDINGS: There is a subtle transverse sclerotic line seen along the neck of the radius noted on the oblique view. This raises the question of a subtle nondisplaced impacted fracture. There is the suggestion of an elbow effusion with elevation of the fat pads. No subluxation or dislocation. IMPRESSION: Subtle findings at the neck of the radius. There is a question of an impacted nondisplaced fracture versus artifact from overlying cortical density exaggerated by positioning. Correlate clinically and with cross-sectional imaging of the elbow or followup radiographs in 10 days. The findings were discussed with Dr. Wilson at the time of dictation. Dictated by: Dictated on workstation # [id number]
== END ==
LOC: RAD 14:33
PROVIDERS: ATTEND Nurse Practitioner Family
DX: M25.521 Pain in right elbow (principal)
CPT/HCPCS: 73080

== ENCOUNTER → 2017-06-02 | Outpatient (CLI) | payer MEDICARE ==
--- NOTE | 2017-06-02 12:45 | Diagnostic Imaging Report ---
INDICATION: Radial fracture. AP, oblique and lateral views of the right elbow are obtained. FINDINGS: There is slight sclerosis noted about probable nondisplaced impacted fracture at the radial neck. No other fracture or malalignment is identified. There is mild marginal spurring. No abnormal lytic or sclerotic focus is seen. IMPRESSION: Developing sclerosis about the neck of the proximal radius indicates partial healing of subacute fracture. Dictated by: Dictated on workstation # [id number]
== END ==
LOC: RAD 12:08
PROVIDERS: ATTEND Family Medicine
DX: S52.134D Nondisplaced fracture of neck of right radius, subsequent encounter for closed fracture with routine healing (principal); X58.XXXD Exposure to other specified factors, subsequent encounter; Y99.8 Other external cause status
CPT/HCPCS: 73080

== ENCOUNTER → 2017-07-18 | Outpatient (CLI) | payer MEDICARE | LOC: RAD 12:54 | PROVIDERS: ATTEND Internal Medicine Cardiovascular Disease | DX: I10 Essential (primary) hypertension (principal); I82.409 Acute embolism and thrombosis of unspecified deep veins of unspecified lower extremity; G89.4 Chronic pain syndrome; E78.2 Mixed hyperlipidemia; Z72.0 Tobacco use | CPT/HCPCS: 93306 ==

== ENCOUNTER 2017-09-01 12:54 | Outpatient (RCR) | payer MEDICARE, MEDICAID | END 2017-09-29 10:52 | disposition home or self-care (01) | PROVIDERS: ATTEND Family Medicine | DX: R26.81 Unsteadiness on feet (principal) ==

== ENCOUNTER → 2018-02-16 | Outpatient (CLI) | payer MEDICARE, MEDICAID ==
--- NOTE | 2018-02-16 14:05 | Diagnostic Imaging Report ---
PROCEDURE: US Renal Bilateral. TECHNIQUE: Multiple real-time grayscale images were obtained over the kidneys in various projections bilaterally. INDICATION: Hematuria. FINDINGS: Right kidney measures 11.6 x 3.6 x 5.6 cm, and the left kidney measures 11.1 x 4.9 x 5.4 cm. The cortical thickness and echogenicity are normal bilaterally. No calculi are seen. There is no hydronephrosis. Bilateral ureteral jets are visualized. Bladder is grossly unremarkable. IMPRESSION: Unremarkable renal and bladder ultrasound. Dictated by: Dictated on workstation # [id number]
== END ==
LOC: RAD 12:45
PROVIDERS: ATTEND Family Medicine
DX: R31.9 Hematuria, unspecified (principal)
CPT/HCPCS: 76770

== ENCOUNTER → 2018-04-11 | Outpatient (CLI) | payer MEDICARE, MEDICAID ==
--- NOTE | 2018-04-12 12:52 | Diagnostic Imaging Report ---
INDICATION: Routine screening. No prior mammograms are available for comparison. This is a baseline study. 2-D and 3-D bilateral screening mammography was performed with CAD. The current study was also evaluated with a Computer Aided Detection (CAD) system. FINDINGS: Scattered fibroglandular densities are identified bilaterally. Benign calcifications are scattered throughout both breasts. There is a tiny nodular density noted in the right breast at the nipple line on the CC view posterior depth. No definite correlate is seen on the MLO view. Left breast is unremarkable. No malignant-appearing microcalcifications are seen. Axillae are unremarkable. IMPRESSION: Right breast density. Spot compression and rolled CC views are recommended for further evaluation. ACR BI-RADS Category 0: Incomplete. (Needs additional imaging evaluation). Result letter will be mailed to the patient. Note: At least 10% of breast cancer is not imaged by mammography. Dictated by: Dictated on workstation # [id number]
== END ==
LOC: RAD 14:39
PROVIDERS: ATTEND Obstetrics & Gynecology
DX: Z12.31 Encounter for screening mammogram for malignant neoplasm of breast (principal)
CPT/HCPCS: 77067

== ENCOUNTER → 2018-08-16 | Outpatient (CLI) | payer MEDICARE, MEDICAID ==
[~2018-08-16] MED LIST changes: -POLY255P PO; +POLY255P16 PO
--- NOTE | 2018-08-16 14:49 | Diagnostic Imaging Report ---
INDICATION: Bilateral leg edema. Bilateral lower extremity venous Doppler study was performed in the routine fashion with color flow Doppler and waveform analysis. FINDINGS: The common femoral veins, superficial femoral veins, popliteal veins and visualized portion of the tibial veins show normal compressibility and venous flow patterns where visualized. Portions of the low SFV on both sides were not well-seen. There is normal augmentation. IMPRESSION: No evidence of deep vein thrombosis in the major veins of both legs. Some limitation as above. Dictated by: Dictated on workstation # [id number]
== END ==
LOC: RAD 12:56
PROVIDERS: ATTEND Family Medicine
DX: R60.0 Localized edema (principal)
CPT/HCPCS: 93970

== ENCOUNTER 2018-08-30 09:43 | Inpatient (IN) | payer MEDICARE, MEDICAID ==
[~2018-08-30] VITALS: Ht 172.7 cm; Wt 129.7 kg
[2018-08-30] MEDS ORDERED: ONDANSETRON 4 MG/2 ML (SDV) Z0FRAN IVP PRN (10:00)
[2018-08-30] MEDS ORDERED: PATIENT MAY USE OWN MEDS, ALL PO SCH (10:00)
[2018-08-30 11:07] VITALS: BP 114/55
[2018-08-30] MEDS ORDERED: CYAN10006 PO (11:58)
[2018-08-30] MEDS ORDERED: MELA10TA2 PO (11:58)
[2018-08-30] MEDS ORDERED: MENT7.6L MM (11:58)
[2018-08-30] MEDS ORDERED: NALO25TA PO (11:58)
[2018-08-30] MEDS ORDERED: METO10TA3 PO (11:58)
[2018-08-30] MEDS ORDERED: LORA10TA7 PO (11:58)
[2018-08-30] MEDS ORDERED: CYCL10TA9 PO (11:58)
[2018-08-30] MEDS ORDERED: INSU500I SC (11:58)
[2018-08-30] MEDS ORDERED: OXYC40TA46 PO (11:58)
[2018-08-30] MEDS ORDERED: BUDE10.2 IH (11:58)
[2018-08-30] MEDS ORDERED: NIFE30TA82 PO (11:58)
[2018-08-30] MEDS ORDERED: CHOL20003 PO (11:58)
[2018-08-30] MEDS ORDERED: OLME20TA24 PO (11:58)
[2018-08-30] MEDS ORDERED: INSU500I SQ (11:58)
[2018-08-30] MEDS ORDERED: LIRA3PEN SC (12:00)
--- NOTE | 2018-08-30 12:05 | NUR ---
SPOKE WITH THE PATIENT ABOUT HER MEDICATIONS. SHE HAD MOST OF HER BOTTLES WITH HER AND WE COMPARED WITH THE EXT MED HX. SHE IS NO LONGER TAKING THE FOLLOWING MEDICATIONS THAT HAVE BEEN FILLED RECENTLY ON THE EXT MED HX: PREDNISONE METOLAZONE LASIX POTASSIUM CHANTIX ACTOS SHE TAKES THE FOLLOWING OTC: MELATONIN 10MG HS VITAMIN D DAILY VITAMIN B12 DAILY LORATADINE 10MG DAILY HALLS COUGH DROPS PRN SHE STATES SHE ALSO HAS SYMBICORT SHE USES PRN AND MOVANTIK. SHE NORMALLY TAKES SAXENDA BUT STATES IT IS ON HOLD CURRENTLY.
[2018-08-30] MEDS: inSUlin ASPART (NovoLOG) 1 UNIT/0.01 ML (CHARGE PER UNIT) SC SCH ×3 (12:06→22:19)
[2018-08-30] MEDS: NS IV 1000 ML 1,000 ML IV SCH ×2 (12:09→17:38)
--- NOTE | 2018-08-30 13:02 | NUR ---
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 Her mother works at [employer]. Pt states she has struggled with her health for 20 years, and she has stayed in [place] to be close to family. Pt states she wishes she could have had children and has considered adoption. She expressed appreciation for our visit.
[2018-08-30] MEDS ORDERED: FLU QUADRIvalent (5+ YOA) 2018-2019 (AFLURIA) 0.5 ML IM ONE (13:30)
[2018-08-30] MEDS ORDERED: NON-FORMULARY MEDICATION 1 EA EA (Naloxegol Oxalate (Movantik) 25 MG) PO PRN (17:00)
[2018-08-30 17:07] VITALS: BP 100/60
--- NOTE | 2018-08-30 17:15 | History & Physicial ---
History of Present Illness History of Present Illness Reason for visit/HPI This is a 42 year old female treated for diffuse edema with lasix and potassium for 1 week. She presented back for a followup and had lost 9 lbs but was complaining of abdominal and muscle cramping. Laboratory evaluation was done showing acute renal failure with a creatinine of 3.4. She will be admitted for IVFs and monitoring of BUN/CR. Date of Admission Aug 30, 2018 at 10:45 Date Seen by a Provider: Aug 30, 2018 Time Seen by a Provider: 12:35 I consulted on this patient on 08/30/18 17:02 Attending Physician Nuvia Wilson DO Admitting Physician Nuvia Wilson DO Consult Allergies and Home Medications Allergies Coded Allergies: Penicillins (Verified Allergy, Mild, HIVES; HAS RECEIVED ANCEF W/O PROBLEMS, 08/06/13) Home Medications Budesonide/Formoterol Fumarate 10.2 Gm Hfa.aer.ad, 2 PUFF IH BID PRN for SHORTNESS OF BREATH, (Reported) Cholecalciferol (Vitamin D3) 2,000 Unit Capsule, 2,000 UNIT PO DAILY, (Reported) Cyanocobalamin (Vitamin B-12) 1,000 Mcg Tablet, 1,000 MCG PO DAILY, (Reported) Cyclobenzaprine HCl 10 Mg Tablet, 20 MG PO BID, (Reported) TAKES 2 (10MG) TABLETS Duloxetine HCl 60 Mg Capsule.dr, 60 MG PO DAILY, (Reported) Febuxostat 80 Mg Tablet, 80 MG PO HS, (Reported) Fenofibrate,Micronized 200 Mg Capsule, 200 MG PO HS, (Reported) Insulin Regular, Human 500 Unit/1 Ml Insuln.pen, 220 UNITS SC 0530,1730, ( Reported) Insulin Regular, Human 500 Unit/1 Ml Insuln.pen, 190 UNIT SQ 1200, (Reported) Levothyroxine Sodium 175 Mcg Tablet, 175 MCG PO HS, (Reported) Liraglutide 3 Mg/0.5 Ml Pen.injctr, SC UD, (Reported) CURRENTLY ON HOLD Loratadine 10 Mg Tablet, 10 MG PO HS, (Reported) Melatonin 10 Mg Tablet, 10 MG PO HS, (Reported) Menthol 7.6 Mg Lozenge, 7.6 MG MM Q2H PRN for COUGH, (Reported) Metoclopramide HCl 10 Mg Tablet, 10 MG PO AC, (Reported) Montelukast Sodium 10 Mg Tablet, 10 MG PO HS, (Reported) Naloxegol Oxalate 25 Mg Tablet, 25 MG PO DAILY PRN for CONSTIPATION, (Reported) Nifedipine 30 Mg Tab.er.24, 30 MG PO HS, (Reported) Olmesartan Medoxomil 20 Mg Tablet, 20 MG PO 1200, (Reported) Omeprazole 40 Mg Capsule.dr, 40 MG PO HS, (Reported) Oxycodone HCl 10 Mg Tablet, 10 MG PO Q4H PRN for PAIN-SEVERE, (Reported) Oxycodone HCl 40 Mg Tab.er.12h, 40 MG PO BID, (Reported) Patient Home Medication List Home Medication List Reviewed: Yes Past Mujlbzh-Pxwela-Tovzjv Hx Patient Social History Alcohol Use: Denies Use Recreational Drug Use: No Smoking Status: Never a Smoker Type Used: Cigarettes Physical Abuse Screen: No Sexual Abuse: No Recent Foreign Travel: No Contact w/other who traveled: No Recent Hopitalizations: No (SURGERIES) Immunizations Up To Date Tetanus Booster (TDap): Unknown Pediatric: Yes Date of Pneumonia Vaccine: Sep 04, 2012 Date of Influenza Vaccine: Jul 03, 2013 Seasonal Allergies Seasonal Allergies: No Surgeries Yes (DALI FILTER , back surgeries, thyroid nodule removed) Neurological, Orthopedic Respiratory Yes (uses inhaler) Cardiovascular Yes Deep Vein Thrombosis, Hypertension Neurological Yes (neuropathy) Paralysis Reproductive System : No Hx Reproductive Disorders: Yes (polycystic ovarian syndrome) Sexually Transmitted Disease: No HIV/AIDS: No Female Reproductive Disorders: Polycystic Ovarian Dis SKIN CARVER History: Hysterectomy Genitourinary Yes UTI-Chronic Gastrointestinal No Chronic Constipation Musculoskeletal Yes Foot Drop, Chronic Back Pain, Gout Endocrine History of Endocrine Disorders: Yes Endocrine Disorders: Diabetes, Insulin dep, Hypothyroidsim Are Your Blood Sugars Over 250: Yes HEENT History of HEENT Disorders: No Loss of Vision: Denies Hearing Impairment: Denies Cancer No Psychosocial History of Psychiatric Problem: Yes Behavioral Health Disorders: Anxiety, Depression Integumentary History of Skin or Integumenta: No Skin/Integumentary Disorders: Recent Skin Changes Blood Transfusions History of Blood Disorders: Yes ( DVT IN LEGS AND ARMS, DALI FILTER) Adverse Reaction to a Blood Tr: No Family Medical History Family Hx: Human immunodeficiency virus (HIV) seropositivity 03 FATHER No Family History of: Cancer Family history: Cardiovascular disease Family history: Gastrointestinal disease History of - respiratory disease Review of Systems Constitutional: dizziness, weakness, weight loss EENTM: No see HPI, No no symptoms reported, No ear discharge, No hearing loss, No ear pain, No blurred vision, No double vision, No eye pain, No tearing, No vision loss, No dental problems, No hoarseness, No mouth pain, No mouth swelling , No epistaxis, No nose congestion, No nose pain, No throat pain, No throat swelling, No other Respiratory: No no symptoms reported, No see HPI, No cough, No dyspnea on exertion, No hemoptysis, No orthopnea, No phlegm, No short of breath, No stridor , No wheezing, No other Cardiovascular: edema Gastrointestinal: abdominal pain (RUQ) Genitourinary: No no symptoms reported, No see HPI, No decreased output, No discharge, No dysuria, No frequency, No hematuria, No hesitancy, No incontinence , No nocturia, No pain, No other Musculoskeletal: muscle cramps, muscle weakness Skin: No no symptoms reported, No see HPI, No change in color, No change in hair/nails, No dryness, No hx of skin cancer, No lesions, No lumps, No pruritus , No rash, No other Psychiatric/Neurological: Pre-Existing Deficit, Weakness Physical Exam Vital Signs Vital Signs - First Documented 08/30/18 08/30/18 10:53 11:07 Temp 97.9 Pulse 99 Resp 20 B/P (MAP) 114/55 (74) Pulse Ox 92 O2 Delivery Room Air Capillary Refill : Height, Weight, BMI Height: 5'8.00" Weight: 267lbs. 8.0oz. 121.676970ug; 40.7 BMI Method:Stated General Appearance: Mild Distress HEENT: Normal ENT Inspection Neck: Supple Respiratory: Lungs Clear Cardiovascular: Regular Rate, Rhythm Gastrointestinal: Normal Bowel Sounds, Soft, Tenderness (RUQ) Rectal: Deferred Back: No CVA Tenderness Extremity: Non Tender, No Calf Tenderness, Pedal Edema Neurologic/Psychiatric: Alert, Oriented x3, Abnormal Gait, Motor Weakness Skin: Warm/Dry Assessment/Plan Assessment and Plan 1. Acute Renal Failure--admit, hydrate, monitor BUN/Cr 2. Hyperkalemia--due to renal failure so will hydrate and repeat potassium in AM 3. Diabetes mellitus--insulin requiring--place on accuchecks with SSI 4. Cauda Equina with Chronic Pain Syndrome--resume oxycontin home dose and use oxycodone prn but will do lower dose due to elevated Cr level Admission Diagnosis Admission Status: Inpatient Order (span 2 midnights) Reason for Inpatient Admission: Will need IVFs and monitoring of creatinine for at least 48hrs Clinical Quality Measures DVT/VTE Risk/Contraindication: Risk Factor Score Per Nursin RFS Level Per Nursing on Admit: 3=High NUVIA WILSON DO Aug 30, 2018 17:15
[2018-08-30 19:26] VITALS: BP 123/66
[2018-08-30] MEDS: CYCLOBENZAPRINE 10 MG (FLEXERIL) TAB PO SCH (22:18)
[2018-08-30] MEDS: MELATONIN 3 MG TABLET PO SCH (22:19)
[2018-08-30] MEDS: LEVOTHYROXINE 25 MCG (LEVOTHROID) TAB PO SCH (22:19)
[2018-08-30] MEDS: oxyCODONE ER 40 MG (oxyCONTIN CR) TAB PO SCH (22:19)
[2018-08-30] MEDS: PANTOPRAZOLE 40 MG (PROTONIX) TAB PO SCH (22:19)
[2018-08-30] MEDS: LEVOTHYROXINE 150 MCG (LEVOTHROID) TAB PO SCH (22:19)
[2018-08-30] MEDS: NIFEdipine ER 30 MG (PROCARDIA XL) TAB PO SCH (22:19)
--- NOTE | 2018-08-30 22:45 | NUR ---
PT found to be in possession of home medications, including 2 bottles of analgesic Oxycodone, Oxycontin et Duloxetine. This RN confiscated bottles et performed bedside counts with Lunchroom Monitor Rubi Sher RN. Duloxetine rx of 30 tabs filled on 08/03/2018 contains 12 tabs, Oxydone rx of 180 tabs filled on 08/16/2018 contains 24 tabs, et Oxycontin rx of 60 tabs filled on 08/16/2018 contains 21 tabs. All counts verified et signed by this RN, Lunchroom Monitor Rubi Sher RN et pt. Medications placed in lockup in medication room to be verified by pharmacy in a.m.
[2018-08-31 00:03] VITALS: BP 122/68
[2018-08-31] MEDS: NS IV 1000 ML 1,000 ML IV SCH ×5 (01:07→23:53)
[2018-08-31 04:01] VITALS: BP 110/52
--- NOTE | 2018-08-31 06:00 | NUR ---
This RN assisted pt to the bathroom. Upon return to bed, pt c/o SOB et difficulty breathing. This RN applied 2L oxygen per nasal cannula. Pt's lungs auscultated for fluid overload; clear to auscultation. Pt resting comfortably in bed, no c/o SOB after a few minutes with nasal cannula on. Will continue to monitor.
[2018-08-31] MEDS: METOCLOPRAMIDE 10 MG (REGLAN) TAB PO SCH ×3 (06:12→16:39)
[2018-08-31 06:43] LABS: ALBUMIN 3.6 GM/DL (3.2-4.5); BILIRUBIN,TOTAL 0.9 MG/DL (0.1-1.0); CALCIUM 8.5 MG/DL (8.5-10.1); CREATININE SERUM 1.8 MG/DL (0.60-1.30); POTASSIUM 6.3 MMOL/L (3.6-5.0); TOTAL PROTEIN 6.7 GM/DL (6.4-8.2)
[2018-08-31] MEDS: inSUlin ASPART (NovoLOG) 1 UNIT/0.01 ML (CHARGE PER UNIT) SC SCH ×4 (06:56→21:13)
[2018-08-31 08:00] VITALS: BP 99/52
[2018-08-31] MEDS: DULoxetine 30 MG (CYMBALTA) CAP PO SCH (08:42)
[2018-08-31] MEDS: oxyCODONE ER 40 MG (oxyCONTIN CR) TAB PO SCH ×2 (08:42→21:19)
[2018-08-31] MEDS: CYCLOBENZAPRINE 10 MG (FLEXERIL) TAB PO SCH ×2 (08:42→21:20)
[2018-08-31] MEDS: OLMESARTAN 20 MG (BENICAR) TABLET PO SCH (11:43)
[2018-08-31 12:00] VITALS: BP 111/63
[2018-08-31 12:37] LABS: BILIRUBIN,URINE NEGATIVE (NEGATIVE); CLARITY,URINE CLEAR; COLOR,URINE YELLOW; GLUCOSE, URINE (UA) NEGATIVE (NEGATIVE); KETONES,URINE NEGATIVE (NEGATIVE); LEUKOCYTE ESTERASE ,URINE NEGATIVE (NEGATIVE); NITRITE,URINE NEGATIVE (NEGATIVE); PH,URINE 6 (5-9); PROTEIN,URINE NEGATIVE (NEGATIVE); UROBILINOGEN,URINE NORMAL (NORMAL)
[2018-08-31 12:46] LABS: BACTERIA,URINE FEW /HPF; SQUAMOUS EPITHELIAL CELL,UR 25-50 /HPF
[2018-08-31] MEDS ORDERED: SOD POLYSTERENE 15 GM/60 ML (KAYEXALATE) UNIT DOSE PO NR (13:18)
--- NOTE | 2018-08-31 13:58 | Progress Note (SOAP) ---
Subjective Date Seen by a Provider: Aug 31, 2018 Time Seen by a Provider: 13:53 Subjective/Events-last exam Fwup acute renal failure, hyperkalemia, edema, cauda equina syndrome, diabetes mellitus--insulin requiring. Not having as much abdominal pain/muscle cramps. Objective Exam Vital Signs Date Time Temp Pulse Resp B/P (MAP) Pulse Ox O2 Delivery O2 Flow Rate FiO2 08/31/18 08:00 100.4 103 16 99/52 (68) 92 Room Air 08/31/18 08:00 92 Room Air 08/31/18 04:01 98.9 97 20 110/52 (71) 99 Room Air 08/31/18 00:03 98.6 86 20 122/68 (86) 93 Room Air 08/30/18 19:26 98.0 83 16 123/66 (85) 96 Room Air 08/30/18 17:07 98.4 83 16 100/60 (73) 96 Room Air I & O 08/31/18 07:00 Intake Total 1940 ml Output Total 1300 ml Balance 640 ml Capillary Refill : General Appearance: No Apparent Distress Respiratory: Lungs Clear Cardiovascular: Regular Rate, Rhythm Gastrointestinal: normal bowel sounds, non tender, soft Extremity: Pedal Edema (1 plus) Neurologic/Psychiatric: Alert Results Lab Laboratory Tests 08/30/18 17:07: Glucometer 100 08/30/18 21:51: Glucometer 129H 08/31/18 05:50: Sodium Level 134L, Potassium Level 6.3H, Chloride Level 100, Carbon Dioxide Level 22, Anion Gap 12, Blood Urea Nitrogen 58H, Creatinine 1.80H, Estimat Glomerular Filtration Rate 31, BUN/Creatinine Ratio 32, Glucose Level 196H, Calcium Level 8.5, Corrected Calcium 8.8, Total Bilirubin 0.9, Aspartate Amino Transf (AST/SGOT) 47H, Alanine Aminotransferase (ALT/SGPT) 40, Alkaline Phosphatase 59, Total Protein 6.7, Albumin 3.6 08/31/18 11:26: Glucometer 214H 08/31/18 12:25: Urine Color YELLOW, Urine Clarity CLEAR, Urine pH 6, Urine Specific [place] 1.015L, Urine Protein NEGATIVE, Urine Glucose (UA) NEGATIVE, Urine Ketones NEGATIVE, Urine Nitrite NEGATIVE, Urine Bilirubin NEGATIVE, Urine Urobilinogen NORMAL, Urine Leukocyte Esterase NEGATIVE, Urine RBC (Auto) NEGATIVE, Urine RBC NONE, Urine WBC NONE, Urine Squamous Epithelial Cells 25-50H, Urine Crystals NONE, Urine Bacteria FEWH, Urine Casts NONE, Urine Mucus NEGATIVE, Urine Culture Indicated NO Assessment/Plan Assessment/Plan Assess & Plan/Chief Complaint 1. Acute Renal Failure--improving with IVFs--Cr down to 1.8 so will decrease IVF rate and recheck Cr in AM 2. Hyperkalemia--start kayaxelate and telemetry, repeat K level in AM 3. Localized Edema--start DOMINIK hose and elevate legs 4. Diabetes mellitus--insulin requiring--currently on SSI 5. Cauda Equina Syndrome with Chronic Pain--back on oxycontin dose but breakthrough oxycodone dose has been decreased due to renal failure, groggy today so will decrease baclofen dose as well Clinical Quality Measures Admission Status Admission Dx 1. Acute Renal Failure--admit, hydrate, monitor BUN/Cr 2. Hyperkalemia--due to renal failure so will hydrate and repeat potassium in AM 3. Diabetes mellitus--insulin requiring--place on accuchecks with SSI 4. Cauda Equina with Chronic Pain Syndrome--resume oxycontin home dose and use oxycodone prn but will do lower dose due to elevated Cr level DVT/VTE Risk/Contraindication: Risk Factor Score Per Nursin RFS Level Per Nursing on Admit: 3=High BENNETT CARDENAS DO Aug 31, 2018 13:58
[2018-08-31 16:00] VITALS: BP 103/62
[2018-08-31] MEDS: SOD POLYSTERENE 15 GM/60 ML (KAYEXALATE) UNIT DOSE PO SCH ×2 (17:39→23:53)
[2018-08-31 20:00] VITALS: BP 124/62
[2018-08-31] MEDS: MELATONIN 3 MG TABLET PO SCH (21:18)
[2018-08-31] MEDS: LEVOTHYROXINE 150 MCG (LEVOTHROID) TAB PO SCH (21:19)
[2018-08-31] MEDS: LEVOTHYROXINE 25 MCG (LEVOTHROID) TAB PO SCH (21:19)
[2018-08-31] MEDS: PANTOPRAZOLE 40 MG (PROTONIX) TAB PO SCH (21:19)
[2018-08-31] MEDS: NIFEdipine ER 30 MG (PROCARDIA XL) TAB PO SCH (21:20)
[2018-09-01] VITALS: BP 116/63
[2018-09-01 04:00] VITALS: BP 103/65
[2018-09-01 06:31] LABS: ALBUMIN 3.5 GM/DL (3.2-4.5); BILIRUBIN,TOTAL 0.6 MG/DL (0.1-1.0); CREATININE SERUM 1.32 MG/DL (0.60-1.30); POTASSIUM 5.5 MMOL/L (3.6-5.0); TOTAL PROTEIN 6.6 GM/DL (6.4-8.2)
[2018-09-01] MEDS: inSUlin ASPART (NovoLOG) 1 UNIT/0.01 ML (CHARGE PER UNIT) SC SCH ×2 (06:33→11:05)
[2018-09-01] MEDS: SOD POLYSTERENE 15 GM/60 ML (KAYEXALATE) UNIT DOSE PO SCH ×2 (06:34→11:04)
[2018-09-01] MEDS: METOCLOPRAMIDE 10 MG (REGLAN) TAB PO SCH ×2 (06:41→11:04)
[2018-09-01 08:03] VITALS: BP 112/64
[2018-09-01] MEDS: DULoxetine 30 MG (CYMBALTA) CAP PO SCH (08:15)
[2018-09-01] MEDS: CYCLOBENZAPRINE 10 MG (FLEXERIL) TAB PO SCH (08:15)
[2018-09-01] MEDS: oxyCODONE ER 40 MG (oxyCONTIN CR) TAB PO SCH (08:15)
[2018-09-01] MEDS: NS IV 1000 ML 1,000 ML IV SCH (09:21)
[2018-09-01] MEDS: OLMESARTAN 20 MG (BENICAR) TABLET PO SCH (11:04)
--- NOTE | 2018-09-01 11:58 | Discharge Summary-Hospitalist ---
Diagnosis/Chief Complaint Date of Admission Aug 30, 2018 at 10:45 Date of Discharge Discharge Date: Sep 01, 2018 Discharge Diagnosis (1) Acute renal failure (ARF) Status: Acute (2) Hyperkalemia Status: Acute (3) Diabetes mellitus Status: Chronic Discharge Summary Discharge Physical Exam Allergies: Coded Allergies: Penicillins (Verified Allergy, Mild, HIVES; HAS RECEIVED ANCEF W/O PROBLEMS, 08/06/13) Vitals & I&Os Vital Signs Date Time Temp Pulse Resp B/P (MAP) Pulse Ox O2 Delivery O2 Flow Rate FiO2 09/01/18 12:54 86 18 112/64 95 Room Air 09/01/18 08:03 98.0 General Appearance: No Apparent Distress, WD/WN, Chronically ill, Obese Respiratory: Chest Non Tender, Lungs Clear, Normal Breath Sounds, No Accessory Muscle Use, No Respiratory Distress Cardiovascular: Regular Rate, Rhythm, No Edema, No Gallop, No JVD, No Murmur, Normal Peripheral Pulses Neurologic/Psychiatric: Alert, Oriented x3, No Motor/Sensory Deficits, Normal Mood/Affect Hospital Course Hospital course: Patient a brief hospital course she was admitted placed on aggressive IV fluids to acute renal failure with hyperkalemia due to overuse of diuretics. All diuretics were held. Patient tolerated aggressive IV fluid with good resolution of concentrated urine and improvement in creatinine and hyperkalemia. She will have close follow-up for primary care provider and she will maintain hydration to prevent this issue from occurring again. Labs (last 24 hrs) Laboratory Tests 08/31/18 16:23: Glucometer 143H 08/31/18 20:59: Glucometer 162H 09/01/18 05:53: Glucometer 189H 09/01/18 06:05: Sodium Level 139, Potassium Level 5.5H, Chloride Level 106, Carbon Dioxide Level 23, Anion Gap 10, Blood Urea Nitrogen 39H, Creatinine 1.32H, Estimat Glomerular Filtration Rate 44, BUN/Creatinine Ratio 30, Glucose Level 200H, Calcium Level 9.0, Corrected Calcium 9.4, Total Bilirubin 0.6, Aspartate Amino Transf (AST/SGOT) 34, Alanine Aminotransferase (ALT/SGPT) 32, Alkaline Phosphatase 49, Total Protein 6.6, Albumin 3.5 09/01/18 10:53: Glucometer 248H Patient resulted labs reviewed. Pending Labs Laboratory Tests 09/01/18 06:05: Sodium Level 139, Potassium Level 5.5, Chloride Level 106, Carbon Dioxide Level 23, Anion Gap 10, Blood Urea Nitrogen 39, Creatinine 1.32, Estimat Glomerular Filtration Rate 44, BUN/Creatinine Ratio 30, Glucose Level 200, Calcium Level 9.0, Corrected Calcium 9.4, Total Bilirubin 0.6, Aspartate Amino Transf (AST/ SGOT) 34, Alanine Aminotransferase (ALT/SGPT) 32, Alkaline Phosphatase 49, Total Protein 6.6, Albumin 3.5 09/01/18 10:53: Glucometer 248 Discussion & Recommendations Discharge Planning: <30 minutes discharge planning Discharge Home Medications: Active Scripts Active Reported Saxenda (Liraglutide) 3 Mg/0.5 Ml Pen.injctr SC UD CURRENTLY ON HOLD Melatonin 10 Mg Tablet 10 Mg PO HS Movantik (Naloxegol Oxalate) 25 Mg Tablet 25 Mg PO DAILY PRN Vitamin B-12 (Cyanocobalamin (Vitamin B-12)) 1,000 Mcg Tablet 1,000 Mcg PO DAILY Vitamin D3 (Cholecalciferol (Vitamin D3)) 2,000 Unit Capsule 2,000 Unit PO DAILY [place] (Menthol) 7.6 Mg Lozenge 7.6 Mg MM Q2H PRN Olmesartan Medoxomil 20 Mg Tablet 20 Mg PO 1200 Nifedipine ER (Nifedipine) 30 Mg Tab.er.24 30 Mg PO HS Metoclopramide HCl 10 Mg Tablet 10 Mg PO AC Cyclobenzaprine HCl 10 Mg Tablet 20 Mg PO BID TAKES 2 (10MG) TABLETS Humulin R U-500 Kwikpen (Insulin Regular, Human) 500 Unit/1 Ml Insuln.pen 190 Unit SQ 1200 Humulin R U-500 Kwikpen (Insulin Regular, Human) 500 Unit/1 Ml Insuln.pen 220 Units PR 0530,1730 Oxycontin (Oxycodone HCl) 40 Mg Tab.er.12h 40 Mg PO BID Loratadine 10 Mg Tablet 10 Mg PO HS Symbicort 160-4.5 Mcg Inhaler (Budesonide/Formoterol Fumarate) 10.2 Gm Hfa.aer.ad 2 Puff IH BID PRN Oxycodone HCl 10 Mg Tablet 10 Mg PO Q4H PRN Uloric (Febuxostat) 80 Mg Tablet 80 Mg PO HS Duloxetine HCl 60 Mg Capsule.dr 60 Mg PO DAILY Omeprazole 40 Mg Capsule.dr 40 Mg PO HS Fenofibrate (Fenofibrate,Micronized) 200 Mg Capsule 200 Mg PO HS Montelukast Sodium 10 Mg Tablet 10 Mg PO HS Levothyroxine Sodium 175 Mcg Tablet 175 Mcg PO HS Instructions to patient/family Please see electronic discharge instructions given to patient. 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
[2018-09-01 12:54] VITALS: BP 112/64
--- NOTE | 2018-09-01 12:54 | NUR ---
JOSE D JOHN demonstrates understanding of discharge instructions and accurately returns instructions upon questioning. Copy of Post-Discharge Instructions and Medication Discharge Instructions given to PT. JOSE D JOHN is able to manage continuing needs after discharge. Patients belongings/MEDICATIONS returned to PT. Skin dry and intact; no breakdown noted. Patient discharged from [facility] on 09/01/18 at 1254 . JOSE D JOHN left floor via WHEELCHAIR, accompanied by STAFF.
== END 2018-09-01 12:54 | disposition home or self-care (01) | DRG 683 ==
LOC: 4TH 10:45
PROVIDERS: ADMIT Family Medicine; ATTEND Family Medicine
DX: N17.9 Acute kidney failure, unspecified (principal); E87.5 Hyperkalemia; E11.40 Type 2 diabetes mellitus with diabetic neuropathy, unspecified; E11.59 Type 2 diabetes mellitus with other circulatory complications; G83.4 Cauda equina syndrome; G89.4 Chronic pain syndrome; Z86.718 Personal history of other venous thrombosis and embolism; I10 Essential (primary) hypertension; M21.371 Foot drop, right foot; M21.372 Foot drop, left foot; M10.9 Gout, unspecified; E03.9 Hypothyroidism, unspecified; F41.9 Anxiety disorder, unspecified; F32.9 Major depressive disorder, single episode, unspecified; Z79.4 Long term (current) use of insulin; Z95.828 Presence of other vascular implants and grafts; Z87.42 Personal history of other diseases of the female genital tract; Z88.0 Allergy status to penicillin
CPT/HCPCS: 36415; 80053; 81000; 82962; 90471; 90686

== ENCOUNTER 2019-01-07 14:15 | Day surgery (SDC) | payer MEDICARE, MEDICAID ==
[~2019-01-07] VITALS: Ht 172.7 cm; Wt 129.8 kg
[~2019-01-07 14:15] MED LIST changes: +BUDE10.2 IH; +CHOL20003 PO; +CYAN10006 PO; +INSU500I SC; +INSU500I SQ; +LIRA3PEN SC; +LORA10TA7 PO; +MELA10TA2 PO; +MENT7.6L MM; +NALO25TA PO; +NIFE30TA82 PO; +OLME20TA24 PO; +OXYC40TA46 PO
[2019-01-07] MEDS ORDERED: CATHETER FLUSH 10 ML SYR IV PRN (14:30)
[2019-01-07] MEDS ORDERED: VANCOMYCIN 1 GM/NS 250 ML IVPB IV ONE ×2 (14:30)
[2019-01-07 15:43] VITALS: BP 142/72
[2019-01-08] MEDS ORDERED: ALLO300T2 PO (15:39)
[2019-01-08] MEDS ORDERED: CLIN300C11 PO (15:39)
[2019-01-08] MEDS ORDERED: METF500T8 PO (15:39)
[2019-01-08] MEDS ORDERED: OXC5T PO (18:17)
== END 2019-01-07 15:43 | disposition home or self-care (01) ==
LOC: SDC 14:15
PROVIDERS: ATTEND Family Medicine
DX: L03.311 Cellulitis of abdominal wall (principal)
CPT/HCPCS: 96365

== ENCOUNTER 2019-01-08 14:07 | Inpatient (IN) | payer MEDICARE, MEDICAID ==
[~2019-01-08] VITALS: Ht 172.7 cm; Wt 120.9 kg
--- OUTSIDE RECORDS SUMMARY | 2019-01-08 14:11 | XMS REPORT | Clinical Summary ---
Author Author [facility] Organization [facility] Address Unknown Phone Unavailable Care Team Providers Care Line Fixer Name Role Phone Nuvia Wilson MD PCP Linda Silva MD Unavailable Source Comments Some departments are not documenting in the electronic medical record. If you do not see the information that you expected, contact Release of Information in the Health Information Management department at [phone] for further assistance in locating additional records.[facility] Allergies Comments Active Allergy Reactions Severity Noted Date Allergy recorded in SMS: Penicillin~Reactions: RASH Penicillins 01/10/2006 Medications Not on file Active Problems Problem Noted Date Displacement of lumbar intervertebral disc without myelopathy 12/13/2007 Spinal stenosis, unspecified region other than cervical 09/13/2007 Social History Date Tobacco Use Types Packs/Day Years Used Never Assessed Sex Assigned at Date Recorded Not on file Industry Job Start Date Occupation Not on file Not on file Not on file Travel End Travel History Travel Start No recent travel history available. Last Filed Vital Signs Not on file Plan of Treatment Health Maintenance Due Date Last Done Comments PHYSICAL (COMPREHENSIVE) 1980 EXAM HIV SCREENING 1988 DTAP/TDAP VACCINES ( - 12/30/1991 Tdap) CERVICAL CANCER SCREENING 12/30/2003 BREAST CANCER SCREENING 2013 INFLUENZA VACCINE 06/04/2019 Results Not on filefrom Last 3 Months
--- OUTSIDE RECORDS SUMMARY | 2019-01-08 14:12 | XMS REPORT ---
Author Author WYATT Anne Organization [facility] Address Unknown Care Team Providers Care Water Rights Specialist Name Role Phone WYATT Anne Unavailable PROBLEMS Unknown Problems ALLERGIES Substance Reaction Event Type Date Status Penicillian Unknown Non Drug Allergy Jul, Active SOCIAL HISTORY No smoking Hx information available PLAN OF CARE Activity Details Follow Up prn Reason:rct/te VITAL SIGNS Blood pressure systolic 128 mmHg 2016-07-14 Blood pressure diastolic 88 mmHg 2016-07-14 MEDICATIONS Medication Instructions Dosage Frequency Start Date End Date Duration Status Sincalide Active Tresiba FlexTouch Active Levothyroxine Sodium Active Prilosec Active Oxycodone HCl Active Cymbalta Active Uloric Active OxyCODONE ER Active [place] 5-325 MG Orally every 6 hrs 1 tablet as needed 6h Jul, Jul, 4 days Active Humalog Active Creon Active Clindamycin HCl 150 MG Orally three times 1 capsule Jul,Jul 7 days Active Valium Active Reglan Active RESULTS No Results PROCEDURES Procedure Date Ordered Related Diagnosis Body Site LTD ORAL EVALUATION - PROBLEM FOCUS Jul 14, 2016 PANORAMIC FILM SEE ALSO CODE [id number] Jul 14, 2016 IMMUNIZATIONS No Known Immunizations
--- OUTSIDE RECORDS SUMMARY | 2019-01-08 14:12 | XMS REPORT ---
Author Author WYATT Anne Organization [facility] Address Unknown Care Team Providers Care Carpenter Inspector Name Role Phone WYATT Anne Unavailable PROBLEMS Unknown Problems ALLERGIES Substance Reaction Event Type Date Status Penicillian Unknown Non Drug Allergy Oct, Active SOCIAL HISTORY Never Assessed PLAN OF CARE VITAL SIGNS MEDICATIONS Medication Instructions Dosage Frequency Start Date End Date Duration Status Tresiba FlexTouch Active Valium Active Oxycodone HCl Active Humalog Active Reglan Active Sincalide Active Prilosec Active Uloric Active Cymbalta Active Creon Active [place] 5-325 MG Orally every 6 hrs 1 tablet as needed 6h 4 days Active OxyCODONE ER Active Actos Active Levothyroxine Sodium Active RESULTS No Results PROCEDURES Procedure Date Ordered Result Body Site LTD ORAL EVALUATION - PROBLEM FOCUS Oct 17, 2016 INTRAORL-PERIAPICAL 1 FILM [id number] Oct 17, 2016 IMMUNIZATIONS No Known Immunizations MEDICAL (GENERAL) HISTORY Type Description Date Medical History Thyroid problems Medical History PCOS Medical History Diabetes type 1 Medical History Surgery with rods,pins and screws Medical History arthritis Medical History back trouble Medical History Pt is taking Imitiza and merlax Surgical History broken toe 07/2015 Surgical History pt has rods pins and screws in back (has had several surgeries) about 2000 to about 2007
--- OUTSIDE RECORDS SUMMARY | 2019-01-08 14:12 | XMS REPORT ---
Author Author WYATT Anne Organization [facility] Address Unknown Care Team Providers Care Animal Ride Attendant Name Role Phone WYATT Anne Unavailable PROBLEMS Unknown Problems ALLERGIES Substance Reaction Event Type Date Status Penicillian Unknown Non Drug Allergy Oct, Active SOCIAL HISTORY Never Assessed PLAN OF CARE Activity Details Follow Up prn Reason:possibly endo on #8 or as needed VITAL SIGNS Blood pressure systolic 160 mmHg 2016-10-13 Blood pressure diastolic 88 mmHg 2016-10-13 MEDICATIONS Medication Instructions Dosage Frequency Start Date End Date Duration Status Prilosec Active Humalog Active Uloric Active Levothyroxine Sodium Active Actos Active Valium Active Cymbalta Active [place] 5-325 MG Orally every 6 hrs 1 tablet as needed 6h 4 days Active Oxycodone HCl Active Tresiba FlexTouch Active Reglan Active Sincalide Active Creon Active OxyCODONE ER Active RESULTS No Results PROCEDURES Procedure Date Ordered Result Body Site INTRAORL-PERIAPICAL 1 FILM [id number] Oct 13, 2016 IMMUNIZATIONS No Known Immunizations MEDICAL (GENERAL) [...]
--- OUTSIDE RECORDS SUMMARY | 2019-01-08 14:12 | XMS REPORT ---
Author Author WYATT Anne Organization [facility] Address Unknown Care Team Providers Care Primary Health Care Nurse Name Role Phone WYATT Anne Unavailable PROBLEMS Unknown Problems ALLERGIES Substance Reaction Event Type Date Status Penicillian Unknown Non Drug Allergy Aug, Active SOCIAL HISTORY No smoking Hx information available PLAN OF CARE Activity Details Follow Up 3 Weeks Reason:Plover seat VITAL SIGNS Blood pressure systolic 134 mmHg 2016-08-25 Blood pressure diastolic 75 mmHg 2016-08-25 MEDICATIONS Medication Instructions Dosage Frequency Start Date End Date Duration Status Valium Active Creon Active Cymbalta Active Tresiba FlexTouch Active Sincalide Active Humalog Active Oxycodone HCl Active Prilosec Active Levothyroxine Sodium Active OxyCODONE ER Active Uloric Active Reglan Active RESULTS No Results PROCEDURES Procedure Date Ordered Related Diagnosis Body Site INTRAORL-PERIAPICAL 1 FILM [id number] Aug 25, 2016 CROWN - PORCELAIN/CERAMIC SUBSTRATE Aug 25, 2016 Billing Notes on claim Aug 25, 2016 ANTERIOR Aug 25, 2016 IMMUNIZATIONS No Known Immunizations
--- OUTSIDE RECORDS SUMMARY | 2019-01-08 14:12 | XMS REPORT ---
Author Author WYATT Anne Organization [facility] Address Unknown Care Team Providers Care Marine Welder Name Role Phone WYATT Anne Unavailable PROBLEMS Unknown Problems ALLERGIES Substance Reaction Event Type Date Status Penicillian Unknown Non Drug Allergy Oct, Active SOCIAL HISTORY Never Assessed PLAN OF CARE Activity Details Follow Up 2 - 3 Days Reason:#9 crown seat VITAL SIGNS Blood pressure systolic 139 mmHg 2016-10-12 Blood pressure diastolic 74 mmHg 2016-10-12 MEDICATIONS Medication Instructions Dosage Frequency Start Date End Date Duration Status OxyCODONE ER Active Humalog Active Tresiba FlexTouch Active Creon Active Prilosec Active Levothyroxine Sodium Active Reglan Active Cymbalta Active Valium Active Actos Active Oxycodone HCl Active Sincalide Active Uloric Active RESULTS No Results PROCEDURES Procedure Date Ordered Result Body Site INTRAORL-PERIAPICAL 1 FILM [id number] Oct 12, 2016 EXTRAC ERUPTED TOOTH/EXPOSED ROOT Oct 12, 2016 IMMUNIZATIONS No Known Immunizations MEDICAL (GENERAL) [...]
--- OUTSIDE RECORDS SUMMARY | 2019-01-08 14:17 | XMS REPORT | Continuity of Care Document ---
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 VASCULAR IMPLANTS AND 04/09/2017 MARIELLANDER DO NUVIA S Ot E03.9 HYPOTHYROIDISM, UNSPECIFIED 04/09/2017 ORENDER DO, NUVIA S Ot E11.65 TYPE 2 DIABETES MELLITUS WITH HYPERGLYCE 04/09/2017 MARIELLANDER DO, NUVIA S Ot E66.9 OBESITY, UNSPECIFIED 04/09/2017 MARIELLANDER DO, NUVIA S Ot E87.0 HYPEROSMOLALITY AND HYPERNATREMIA 04/09/2017 MARIELLANDER DO, NUVIA S Ot G89.29 OTHER CHRONIC PAIN 04/09/2017 MARIELLANDER DO, NUVIA S Ot I10 ESSENTIAL (PRIMARY) HYPERTENSION 04/09/2017 NUVIA CARDENAS DO Ot K59.00 CONSTIPATION, UNSPECIFIED 04/09/2017 NUVIA CARDENAS DO S Ot N39.0 URINARY TRACT INFECTION, SITE NOT SPECIF 04/09/2017 NUVIA ACRDENAS DO S Ot R16.0 HEPATOMEGALY, NOT ELSEWHERE CLASSIFIED 04/09/2017 PHILLIP CARDENAS DOLINE S Ot Z79.4 CARE HOME (CURRENT) USE OF INSULIN 04/09/2017 PHILLIP CARDENAS DOLINE S Ot Z79.891 CARE HOME (CURRENT) USE OF OPIATE ANALGE 04/09/2017 PHILLIP CARDENAS DOLINE S Ot Z79.899 OTHER CARE HOME (CURRENT) DRUG THERAPY 04/09/2017 PHILLIP CARDENAS DOLINE S Ot Z86.718 PERSONAL HISTORY OF OTHER VENOUS THROMBO 04/09/2017 PHILLIP CARDENAS DOLINE S Ot Z87.891 PERSONAL HISTORY OF NICOTINE DEPENDENCE 04/09/2017 PHILLIP CARDENAS DOLINE S Ot Z90.49 ACQUIRED ABSENCE OF OTHER SPECIFIED PART 04/09/2017 PHILLIP CARDENAS DOLINE S Ot Z95.828 PRESENCE OF OTHER VASCULAR IMPLANTS AND 05/31/2017 VERONIKA OSORIO Ot M25.521 PAIN IN RIGHT ELBOW 06/04/2017 LAURA DIAZ APRN Ot 244.9 HYPOTHYROIDISM NOS 06/04/2017 LAURA DIAZ ANIMAL COP Ot 250.00 DIAB IVETT WO COMPL, TYPE II OR UNSPEC TY 06/04/2017 LAURA DIAZ APRN Ot 256.4 POLYCYSTIC OVARIES 06/04/2017 LAURA DIAZ APRN Ot 401.9 HYPERTENSION NOS 06/04/2017 LAURA DIAZ ANIMAL COP Ot 681.10 CELLULITIS, TOE NOS 06/04/2017 LAURA DIAZ APRN Ot 893.1 OPEN WOUND TOE-COMPL 06/04/2017 LAURA DIAZ APRN Ot E888.9 FALL NOS 06/04/2017 LAURA DIAZ APRN Ot 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 06/04/2017 LAURA DIAZ APRN Ot V58.67 LONG-TERM (CURRENT) USE OF INSULIN 06/15/2017 VERONIKA OSORIO Ot M25.521 PAIN IN RIGHT ELBOW 06/23/2017 PHILLIP CARDENAS DOLINE S Ot S52.134D NONDISP FX OF NECK OF R RAD, SUBS FOR CL 06/23/2017 PHILLIP CRADENAS DOLINE S Ot X58.XXXD EXPOSURE TO OTHER SPECIFIED FACTORS, SUB 06/23/2017 PHILLIP CARDENAS DOLINE S Ot Y99.8 OTHER EXTERNAL CAUSE STATUS 08/08/2017 KAITLIN BROWNE MD Ot E78.2 MIXED HYPERLIPIDEMIA 08/08/2017 KAITLIN BROWNE MD Ot G89.4 CHRONIC PAIN SYNDROME 08/08/2017 KAITLIN BROWNE MD Ot I10 ESSENTIAL (PRIMARY) HYPERTENSION 08/08/2017 KAITLIN BROWNE MD Ot I82.409 ACUTE EMBOLISM AND THOMBOS UNSP DEEP VN 08/08/2017 KAITLIN BROWNE MD Ot Z72.0 TOBACCO USE 09/10/2017 MARIELLANDER DO, NUVIA S Ot R26.81 UNSTEADINESS ON FEET 09/28/2017 ORENDER DO, NUVAI S Ot R26.81 UNSTEADINESS ON FEET 09/29/2017 ORENDER DO, NUVIA S Ot R26.81 UNSTEADINESS ON FEET 02/19/2018 MARIELLANDER DO, NUVIA S Ot R31.9 HEMATURIA, UNSPECIFIED 03/12/2018 ORENDER DO, NUVIA S Ot R31.9 HEMATURIA, UNSPECIFIED 03/28/2018 BARDALES DO, CONNOR C Ot Z12.31 ENCNTR SCREEN MAMMOGRAM FOR MALIGNANT NE 03/29/2018 BARDALES DO CONNOR C Ot Z12.31 ENCNTR SCREEN MAMMOGRAM FOR MALIGNANT NE 03/30/2018 MARIELLANDER DO, NUVIA S Ot R31.9 HEMATURIA, UNSPECIFIED 04/02/2018 BARDALES DO, CONNOR C Ot Z12.31 ENCNTR SCREEN MAMMOGRAM FOR MALIGNANT NE 05/01/2018 Ot R92.8 OTH ABN AND INCONCLUSIVE FINDINGS ON DX 05/01/2018 BARDALES DO, CONNOR C Ot Z12.31 ENCNTR SCREEN MAMMOGRAM FOR MALIGNANT NE 05/04/2018 BARDALES DO, CONNOR C Ot Z12.31 ENCNTR SCREEN MAMMOGRAM FOR MALIGNANT NE 05/25/2018 Ot R92.8 OTH ABN AND INCONCLUSIVE FINDINGS ON DX 05/28/2018 Ot R92.8 OTH ABN AND INCONCLUSIVE FINDINGS ON DX 08/17/2018 MARIELLANDPHILLIP VILA DOLINE S Ot R60.0 LOCALIZED EDEMA 08/31/2018 MARIELLANDPHILLIP VILA DOLINE S Ot E03.9 HYPOTHYROIDISM, UNSPECIFIED 08/31/2018 MARIELLANDER , NUVIA S Ot E11.40 TYPE 2 DIABETES MELLITUS WITH DIABETIC N 08/31/2018 MARIELLANDER PHILLIP COLONLINE S Ot E87.5 HYPERKALEMIA 08/31/2018 MARIELLANDER , NUVIA S Ot F32.9 MAJOR DEPRESSIVE DISORDER, SINGLE EPISOD 08/31/2018 MARIELLANDER , NUVIA S Ot F41.9 ANXIETY DISORDER, UNSPECIFIED 08/31/2018 MARIELLANDER , NUVIA S Ot G83.4 CAUDA EQUINA SYNDROME 08/31/2018 MARIELLANDER , NUVIA S Ot I10 ESSENTIAL (PRIMARY) HYPERTENSION 08/31/2018 KARENER PHILLIP COLONLINE S Ot M10.9 GOUT, UNSPECIFIED 08/31/2018 MARIELLANDER PHILLIP COLONLINE S Ot M21.371 FOOT DROP, RIGHT FOOT 08/31/2018 MARIELLANDER , NUVIA S Ot M21.372 FOOT DROP, LEFT FOOT 08/31/2018 MARIELLANDER , NUVIA S Ot N17.9 ACUTE KIDNEY FAILURE, UNSPECIFIED 08/31/2018 MARIELLANDER , NUVIA S Ot Z79.4 CARE HOME (CURRENT) USE OF INSULIN 08/31/2018 PHILLIP CARDENAS DOLINE S Ot Z86.718 PERSONAL HISTORY OF OTHER VENOUS THROMBO 08/31/2018 PHILLIP CARDENAS DOLINE S Ot Z87.42 PERSONAL HISTORY OF OTH DISEASES OF THE 08/31/2018 MARIELLANDER PHILLIP COLONLINE S Ot Z95.828 PRESENCE OF OTHER VASCULAR IMPLANTS AND 09/01/2018 MARIELLANDER , NUVIA S Ot E03.9 HYPOTHYROIDISM, UNSPECIFIED 09/01/2018 MARIELLANDER DO, NUVIA S Ot E11.40 TYPE 2 DIABETES MELLITUS WITH DIABETIC N 09/01/2018 MARIELLANDER DO, NUVIA S Ot E87.5 HYPERKALEMIA 09/01/2018 MARILELANDER , NUVIA S Ot F32.9 MAJOR DEPRESSIVE DISORDER, SINGLE EPISOD 09/01/2018 MARIELLANDER DO, NUVIA S Ot F41.9 ANXIETY DISORDER, UNSPECIFIED 09/01/2018 MARIELLANDER DO, NUVIA S Ot G83.4 CAUDA EQUINA SYNDROME 09/01/2018 MARIELLANDER DO, NUVIA S Ot I10 ESSENTIAL (PRIMARY) HYPERTENSION 09/01/2018 MARIELLANDER DO, NUVIA S Ot M10.9 GOUT, UNSPECIFIED 09/01/2018 MARIELLANDER DO, NUVIA S Ot M21.371 FOOT DROP, RIGHT FOOT 09/01/2018 MARIELLANDER DO, NUVIA S Ot M21.372 FOOT DROP, LEFT FOOT 09/01/2018 MARIELLANDER DO, NUVIA S Ot N17.9 ACUTE KIDNEY FAILURE, UNSPECIFIED 09/01/2018 MARIELLANDER DO, NUVIA S Ot 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 [facility]/01[facility] Z86.718 PERSONAL HISTORY OF OTHER VENOUS THROMBO 09/01/2018 [facility] Z87.42 PERSONAL HISTORY OF OTH DISEASES OF THE 09/01/2018 MARIELLANDER , NUVIA S Ot Z95.828 PRESENCE OF OTHER VASCULAR IMPLANTS AND 09/01/2018 MARIELLANDER NUVIA S Ot E03.9 HYPOTHYROIDISM, UNSPECIFIED 09/01/2018 MARIELLANDER DO, NUVIA S Ot E11.40 TYPE 2 DIABETES MELLITUS WITH DIABETIC N 09/01/2018 MARIELLANDER NUVIA S Ot E11.59 TYPE 2 DIABETES MELLITUS WITH OTH CIRCUL 09/01/2018 THERESA COLON NUVIA S Ot E87.5 HYPERKALEMIA 09/01/2018 MARIELLANDER DO NUVIA S Ot F32.9 MAJOR DEPRESSIVE DISORDER, SINGLE EPISOD 09/01/2018 MARIELLANDER DO, NUVIA S Ot F41.9 ANXIETY DISORDER, UNSPECIFIED 09/01/2018 MARIELLANDER DO, NUVIA S Ot G83.4 CAUDA EQUINA SYNDROME 09/01/2018 MARIELLANDER DO, NUVIA S Ot G89.4 CHRONIC PAIN SYNDROME 09/01/2018 MARIELLANDER DO, NUVIA S Ot I10 ESSENTIAL (PRIMARY) HYPERTENSION 09/01/2018 MARIELLANDNUVIA VILA DO Ot M10.9 GOUT, UNSPECIFIED 09/01/2018 NUVIA CARDENAS DO Ot M21.371 FOOT DROP, RIGHT FOOT 09/01/2018 NUVIA CARDENAS DO Ot M21.372 FOOT DROP, LEFT FOOT 09/01/2018 NUVIA CARDENAS DO Ot N17.9 ACUTE KIDNEY FAILURE, UNSPECIFIED 09/01/2018 NUVIA CARDENAS DO Ot Z23 ENCOUNTER FOR IMMUNIZATION 09/01/2018 NUVIA CARDENAS DO Ot 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 09/01/2018 NUVIA CARDENAS DO Ot Z86.718 PERSONAL HISTORY OF OTHER VENOUS THROMBO 09/01/2018 NUVIA CARDENAS DO Ot Z87.42 PERSONAL HISTORY OF OTH DISEASES OF THE 09/01/2018 NUVIA CARDENAS DO Ot Z88.0 ALLERGY STATUS TO PENICILLIN 09/01/2018 NUVIA CARDENAS DO Ot Z95.828 PRESENCE OF OTHER VASCULAR IMPLANTS AND 09/06/2018 NUVIA CARDENAS DO Ot R60.0 LOCALIZED EDEMA Procedures Code Description Performed By Performed On 51.23 LAPAROSCOPIC CHOLECYSTECTOMY 12/24/2009 87.53 INTRAOPER CHOLANGIOGRAM 12/24/2009 79.38 OPEN REDUCT-INT FIX TOE 05/15/2015 79.68 DEBRID OPN FX-TOE 05/15/2015 Results Test Result Range Complete blood count (CBC) with automated white blood cell (WBC) differential - 04/07/17 18:00 Blood leukocytes automated count (number/volume) 5.8 10*3/uL 4.3-11.0 Blood erythrocytes automated count (number/volume) 5.32 10*6/uL 4.35-5.85 Venous blood hemoglobin measurement (mass/volume) 15.3 g/dL 11.5-16.0 Blood hematocrit (volume fraction) 45 % 35-52 Automated erythrocyte mean corpuscular volume 84 [foz_us] 80-99 Automated erythrocyte mean corpuscular hemoglobin (mass per erythrocyte) 29 pg 25-34 Automated erythrocyte mean corpuscular hemoglobin concentration measurement ( mass/volume) 34 g/dL 32-36 Automated erythrocyte distribution width ratio 12.4 % 10.0-14.5 Automated blood platelet count (count/volume) 221 10*3/uL 130-400 Automated blood platelet mean volume measurement 10.1 [foz_us] 7.4-10.4 Automated blood neutrophils/100 leukocytes 49 % 42-75 Automated blood lymphocytes/100 leukocytes 43 % 12-44 Blood monocytes/100 leukocytes 5 % 0-12 Automated blood eosinophils/100 leukocytes 3 % 0-10 Automated blood basophils/100 leukocytes 1 % 0-10 Blood neutrophils automated count (number/volume) 2.9 10*3 1.8-7.8 Blood lymphocytes automated count (number/volume) 2.5 10*3 1.0-4.0 Blood monocytes automated count (number/volume) 0.3 10*3 0.0-1.0 Automated eosinophil count 0.2 10*3/uL 0.0-0.3 Automated blood basophil count (count/volume) 0.0 10*3/uL 0.0-0.1 PT panel in platelet poor plasma by coagulation assay - 04/07/17 18:00 Prothrombin time (PT) in platelet poor plasma by coagulation assay 12.7 s 12.2-14.7 INR in platelet poor plasma or blood by coagulation assay 1.0 0.8-1.4 Activated partial thromboplastin time (aPTT) in platelet poor plasma bycoagulation assay - 04/07/17 18:00 Activated partial thromboplastin time (aPTT) in platelet poor plasma bycoagulation assay 25 s 24-35 Blood lactic acid measurement (moles/volume) - 04/07/17 18:00 Blood lactic acid measurement (moles/volume) 3.42 mmol/L 0.50-2.00 Fibrin D-dimer FEU measurement in platelet poor plasma (mass/volume) - 18:00 Fibrin D-dimer FEU measurement in platelet poor plasma (mass/volume) 0.53 ug/mL 0.00-0.49 Comprehensive metabolic panel - 04/07/17 18:00 Serum or plasma sodium measurement (moles/volume) 137 mmol/L 135-145 Serum or plasma potassium measurement (moles/volume) 4.0 mmol/L 3.6-5.0 Serum or plasma chloride measurement (moles/volume) 99 mmol/L 98-107 Carbon dioxide 21 mmol/L 21-32 Serum or plasma anion gap determination (moles/volume) 17 mmol/L 5-14 Serum or plasma urea nitrogen measurement (mass/volume) 18 mg/dL 7-18 Serum or plasma creatinine measurement (mass/volume) 1.02 mg/dL 0.60-1.30 Serum or plasma urea nitrogen/creatinine mass ratio 18 NRG Serum or plasma creatinine measurement with calculation of estimated glomerular filtration rate 59 NRG Serum or plasma glucose measurement (mass/volume) 391 mg/dL 70-105 Serum or plasma calcium measurement (mass/volume) 10.1 mg/dL 8.5-10.1 Serum or plasma total bilirubin measurement (mass/volume) 0.3 mg/dL 0.1-1.0 Serum or plasma alkaline phosphatase measurement (enzymatic activity/volume) 91 U/L 40-136 Serum or plasma aspartate aminotransferase measurement (enzymatic activity/ volume) 52 U/L 5-34 Serum or plasma alanine aminotransferase measurement (enzymatic activity/volume ) 46 U/L 0-55 Serum or plasma protein measurement (mass/volume) 7.5 g/dL 6.4-8.2 Serum or plasma albumin measurement (mass/volume) 4.3 g/dL 3.2-4.5 Serum or plasma phosphate measurement (mass/volume) - 04/07/17 18:00 Serum or plasma phosphate measurement (mass/volume) 3.7 mg/dL 2.3-4.7 Magnesium - 04/07/17 18:00 Magnesium 1.8 mg/dL 1.8-2.4 Serum or plasma troponin i.cardiac measurement (mass/volume) - 04/07/17 18:00 Serum or plasma troponin i.cardiac measurement (mass/volume) < ng/ mL <0.30 Lipase - 04/07/17 18:00 Lipase 51 U/L 8-78 Serum or plasma C reactive protein measurement (mass/volume) - 04/07/17 18:00 Serum or plasma C reactive protein measurement (mass/volume) 0.28 mg /dL 0.00-0.50 THYROID STIMULATING HORMONE - 04/07/17 18:00 THYROID STIMULATING HORMONE 0.93 u[iU]/mL 0.35-4.94 Serum or plasma ethanol measurement (mass/volume) - 04/07/17 18:00 Serum or plasma ethanol measurement (mass/volume) < mg/dL <10 Bacterial blood culture - 04/07/17 18:00 Bacterial blood culture NG NRG Bacterial blood culture - 04/07/17 18:31 Bacterial blood culture NG NRG Arterial blood gas measurement - 04/07/17 18:46 Blood pCO2 47 mm[Hg] 35-45 Blood pO2 94 mm[Hg] 79-93 Arterial blood bicarbonate measurement (moles/volume) 27 mmol/L 23-27 Arterial blood base excess by calculation 1.9 mmol/L -2.5 -2.5 Arterial blood oxygen saturation measurement 98 % 94-100 * Inhaled oxygen flow rate 3L NC NRG Arterial blood pH measurement with patient temperature correction 7.37 7.37-7.43 Arterial blood carbon dioxide, total measurement (moles/volume) 28.3 mmol/L 21.0-31.0 Body site LT RADIAL NRG Assessment of wrist artery patency prior to arterial puncture YES- POS NRG Setting of ventilation mode NO NRG Measurement of body temperature 97.3 NRG Urine beta human chorionic gonadotropin (hCG) measurement - 04/07/17 19:50 Urine beta human chorionic gonadotropin (hCG) measurement NEGATIVE NEGATIVE Complete urinalysis with reflex to culture - 04/07/17 19:50 Urine color determination YELLOW NRG Urine clarity determination CLEAR NRG Urine pH measurement by test strip 6.5 5-9 Specific gravity of urine by test strip 1.010 1.016- 1.022 Urine protein assay by test strip, semi-quantitative NEGATIVE NEGATIVE Urine glucose detection by automated test strip 4+ NEGATIVE Erythrocytes detection in urine sediment by light microscopy NEGATIVE NEGATIVE Urine ketones detection by automated test strip NEGATIVE NEGATIVE Urine nitrite detection by test strip NEGATIVE NEGATIVE Urine total bilirubin detection by test strip NEGATIVE NEGATIVE Urine urobilinogen measurement by automated test strip (mass/volume) NORMAL NORMAL Urine leukocyte esterase detection by dipstick 2+ NEGATIVE Automated urine sediment erythrocyte count by microscopy (number/high power field) NONE NRG Automated urine sediment leukocyte count by microscopy (number/high power field ) [HPF] NRG Bacteria detection in urine sediment by light microscopy FEW NRG Squamous epithelial cells detection in urine sediment by light microscopy 2-5 NRG Crystals detection in urine sediment by light microscopy NONE NRG Casts detection in urine sediment by light microscopy NONE NRG Mucus detection in urine sediment by light microscopy NEGATIVE NRG Complete urinalysis with reflex to culture YES NRG Urine drug screening test - 04/07/17 19:50 Urine phencyclidine detection by screening method NEGATIVE NEGATIVE Urine benzodiazepines detection by screening method NEGATIVE NEGATIVE Urine cocaine detection NEGATIVE NEGATIVE Urine amphetamines detection by screening method NEGATIVE NEGATIVE Urine methamphetamine detection by screening method NEGATIVE NEGATIVE Urine cannabinoids detection by screening method POSITIVE NEGATIVE Urine opiates detection by screening method NEGATIVE NEGATIVE Urine barbiturates detection NEGATIVE NEGATIVE Screening urine tricyclic antidepressants detection NEGATIVE NEGATIVE Urine methadone detection by screening method NEGATIVE NEGATIVE Urine oxycodone detection POSITIVE NEGATIVE Urine propoxyphene detection NEGATIVE NEGATIVE Bacterial urine culture - 04/07/17 19:50 Bacterial urine culture [id number] NRG COLONY COUNT 10,000/ML - 100,000/ML NRG FTX;REPORTABLE SEE COMMENT NRG Capillary blood glucose measurement by glucometer (mass/volume) - 04/07/17 20: 07 Capillary blood glucose measurement by glucometer (mass/volume) 219 mg/dL 70-110 Serum or plasma lactate measurement (moles/volume) - 04/07/17 20:18 Serum or plasma lactate measurement (moles/volume) 1.55 mmol/L 0.50-2.00 Blood lactic acid measurement (moles/volume) - 04/07/17 22:10 Blood lactic acid measurement (moles/volume) 1.53 mmol/L 0.50-2.00 Complete blood count (CBC) with automated white blood cell (WBC) differential - 04/08/17 04:30 Blood leukocytes automated count (number/volume) 4.7 10*3/uL 4.3-11.0 Blood erythrocytes automated count (number/volume) 4.55 10*6/uL 4.35-5.85 Venous blood hemoglobin measurement (mass/volume) 13.1 g/dL 11.5-16.0 Blood hematocrit (volume fraction) 39 % 35-52 Automated erythrocyte mean corpuscular volume 86 [foz_us] 80-99 Automated erythrocyte mean corpuscular hemoglobin (mass per erythrocyte) 29 pg 25-34 Automated erythrocyte mean corpuscular hemoglobin concentration measurement ( mass/volume) 34 g/dL 32-36 Automated erythrocyte distribution width ratio 12.1 % 10.0-14.5 Automated blood platelet count (count/volume) 165 10*3/uL 130-400 Automated blood platelet mean volume measurement 10.0 [foz_us] 7.4-10.4 Automated blood neutrophils/100 leukocytes 35 % 42-75 Automated blood lymphocytes/100 leukocytes 54 % 12-44 Blood monocytes/100 leukocytes 8 % 0-12 Automated blood eosinophils/100 leukocytes 3 % 0-10 Automated blood basophils/100 leukocytes 0 % 0-10 Blood neutrophils automated count (number/volume) 1.6 10*3 1.8-7.8 Blood lymphocytes automated count (number/volume) 2.5 10*3 1.0-4.0 Blood monocytes automated count (number/volume) 0.4 10*3 0.0-1.0 Automated eosinophil count 0.1 10*3/uL 0.0-0.3 Automated blood basophil count (count/volume) 0.0 10*3/uL 0.0-0.1 Whole blood basic metabolic panel - 04/08/17 04:30 Serum or plasma sodium measurement (moles/volume) 140 mmol/L 135-145 Serum or plasma potassium measurement (moles/volume) 4.1 mmol/L 3.6-5.0 Serum or plasma chloride measurement (moles/volume) 107 mmol/L 98-107 Carbon dioxide 22 mmol/L 21-32 Serum or plasma anion gap determination (moles/volume) 11 mmol/L 5-14 Serum or plasma urea nitrogen measurement (mass/volume) 13 mg/dL 7-18 Serum or plasma creatinine measurement (mass/volume) 0.75 mg/dL 0.60-1.30 Serum or plasma urea nitrogen/creatinine mass ratio 17 NRG Serum or plasma creatinine measurement with calculation of estimated glomerular filtration rate > NRG Serum or plasma glucose measurement (mass/volume) 157 mg/dL 70-105 Serum or plasma calcium measurement (mass/volume) 8.3 mg/dL 8.5-10.1 Capillary blood glucose measurement by glucometer (mass/volume) - 04/08/17 08: 15 Capillary blood glucose measurement by glucometer (mass/volume) 200 mg/dL 70-110 Capillary blood glucose measurement by glucometer (mass/volume) - 04/08/17 10: 56 Capillary blood glucose measurement by glucometer (mass/volume) 156 mg/dL 70-110 Capillary blood glucose measurement by glucometer (mass/volume) - 04/08/17 15: 46 Capillary blood glucose measurement by glucometer (mass/volume) 177 mg/dL 70-110 Capillary blood glucose measurement by glucometer (mass/volume) - 04/08/17 20: 25 Capillary blood glucose measurement by glucometer (mass/volume) 200 mg/dL 70-110 Complete blood count (CBC) with automated white blood cell (WBC) differential - 04/09/17 04:41 Blood leukocytes automated count (number/volume) 4.1 10*3/uL 4.3-11.0 Blood erythrocytes automated count (number/volume) 4.50 10*6/uL 4.35-5.85 Venous blood hemoglobin measurement (mass/volume) 13.0 g/dL 11.5-16.0 Blood hematocrit (volume fraction) 39 % 35-52 Automated erythrocyte mean corpuscular volume 86 [foz_us] 80-99 Automated erythrocyte mean corpuscular hemoglobin (mass per erythrocyte) 29 pg 25-34 Automated erythrocyte mean corpuscular hemoglobin concentration measurement ( mass/volume) 34 g/dL 32-36 Automated erythrocyte distribution width ratio 12.2 % 10.0-14.5 Automated blood platelet count (count/volume) 172 10*3/uL 130-400 Automated blood platelet mean volume measurement 9.8 [foz_us] 7.4-10.4 Automated blood neutrophils/100 leukocytes 37 % 42-75 Automated blood lymphocytes/100 leukocytes 52 % 12-44 Blood monocytes/100 leukocytes 7 % 0-12 Automated blood eosinophils/100 leukocytes 3 % 0-10 Automated blood basophils/100 leukocytes 1 % 0-10 Blood neutrophils automated count (number/volume) 1.5 10*3 1.8-7.8 Blood lymphocytes automated count (number/volume) 2.1 10*3 1.0-4.0 Blood monocytes automated count (number/volume) 0.3 10*3 0.0-1.0 Automated eosinophil count 0.1 10*3/uL 0.0-0.3 Automated blood basophil count (count/volume) 0.0 10*3/uL 0.0-0.1 Comprehensive metabolic panel - 04/09/17 04:41 Serum or plasma sodium measurement (moles/volume) 143 mmol/L 135-145 Serum or plasma potassium measurement (moles/volume) 4.2 mmol/L 3.6-5.0 Serum or plasma chloride measurement (moles/volume) 107 mmol/L 98-107 Carbon dioxide 25 mmol/L 21-32 Serum or plasma anion gap determination (moles/volume) 11 mmol/L 5-14 Serum or plasma urea nitrogen measurement (mass/volume) 11 mg/dL 7-18 Serum or plasma creatinine measurement (mass/volume) 0.78 mg/dL 0.60-1.30 Serum or plasma urea nitrogen/creatinine mass ratio 14 NRG Serum or plasma creatinine measurement with calculation of estimated glomerular filtration rate > NRG Serum or plasma glucose measurement (mass/volume) 144 mg/dL 70-105 Serum or plasma calcium measurement (mass/volume) 8.8 mg/dL 8.5-10.1 Serum or plasma total bilirubin measurement (mass/volume) 0.2 mg/dL 0.1-1.0 Serum or plasma alkaline phosphatase measurement (enzymatic activity/volume) 64 U/L 40-136 Serum or plasma aspartate aminotransferase measurement (enzymatic activity/ volume) 42 U/L 5-34 Serum or plasma alanine aminotransferase measurement (enzymatic activity/volume ) 43 U/L 0-55 Serum or plasma protein measurement (mass/volume) 5.5 g/dL 6.4-8.2 Serum or plasma albumin measurement (mass/volume) 3.5 g/dL 3.2-4.5 Capillary blood glucose measurement by glucometer (mass/volume) - 04/09/17 11: 28 Capillary blood glucose measurement by glucometer (mass/volume) 114 mg/dL 70-110 Capillary blood glucose measurement by glucometer (mass/volume) - 08/30/18 11: 49 Capillary blood glucose measurement by glucometer (mass/volume) 97 mg/dL 70-110 Capillary blood glucose measurement by glucometer (mass/volume) - 08/30/18 17: 07 Capillary blood glucose measurement by glucometer (mass/volume) 100 mg/dL 70-110 Capillary blood glucose measurement by glucometer (mass/volume) - 08/30/18 21: 51 Capillary blood glucose measurement by glucometer (mass/volume) 129 mg/dL 70-110 Comprehensive metabolic panel - 08/31/18 05:50 Serum or plasma sodium measurement (moles/volume) 134 mmol/L 135-145 Serum or plasma potassium measurement (moles/volume) 6.3 mmol/L 3.6-5.0 Serum or plasma chloride measurement (moles/volume) 100 mmol/L 98-107 Carbon dioxide 22 mmol/L 21-32 Serum or plasma anion gap determination (moles/volume) 12 mmol/L 5-14 Serum or plasma urea nitrogen measurement (mass/volume) 58 mg/dL 7-18 Serum or plasma creatinine measurement (mass/volume) 1.80 mg/dL 0.60-1.30 Serum or plasma urea nitrogen/creatinine mass ratio 32 NRG Serum or plasma creatinine measurement with calculation of estimated glomerular filtration rate 31 NRG Serum or plasma glucose measurement (mass/volume) 196 mg/dL 70-105 Serum or plasma calcium measurement (mass/volume) 8.5 mg/dL 8.5-10.1 Serum or plasma total bilirubin measurement (mass/volume) 0.9 mg/dL 0.1-1.0 Serum or plasma alkaline phosphatase measurement (enzymatic activity/volume) 59 U/L 40-136 Serum or plasma aspartate aminotransferase measurement (enzymatic activity/ volume) 47 U/L 5-34 Serum or plasma alanine aminotransferase measurement (enzymatic activity/volume ) 40 U/L 0-55 Serum or plasma protein measurement (mass/volume) 6.7 g/dL 6.4-8.2 Serum or plasma albumin measurement (mass/volume) 3.6 g/dL 3.2-4.5 CALCIUM CORRECTED 8.8 mg/dL 8.5-10.1 Capillary blood glucose measurement by glucometer (mass/volume) - 08/31/18 11: 26 Capillary blood glucose measurement by glucometer (mass/volume) 214 mg/dL 70-110 Complete urinalysis with reflex to culture - 08/31/18 12:25 Urine color determination YELLOW NRG Urine clarity determination CLEAR NRG Urine pH measurement by test strip 6 5-9 Specific gravity of urine by test strip 1.015 1.016- 1.022 Urine protein assay by test strip, semi-quantitative NEGATIVE NEGATIVE Urine glucose detection by automated test strip NEGATIVE NEGATIVE Erythrocytes detection in urine sediment by light microscopy NEGATIVE NEGATIVE Urine ketones detection by automated test strip NEGATIVE NEGATIVE Urine nitrite detection by test strip NEGATIVE NEGATIVE Urine total bilirubin detection by test strip NEGATIVE NEGATIVE Urine urobilinogen measurement by automated test strip (mass/volume) NORMAL NORMAL Urine leukocyte esterase detection by dipstick NEGATIVE NEGATIVE Automated urine sediment erythrocyte count by microscopy (number/high power field) NONE NRG Automated urine sediment leukocyte count by microscopy (number/high power field ) NONE NRG Bacteria detection in urine sediment by light microscopy FEW NRG Squamous epithelial cells detection in urine sediment by light microscopy 25-50 NRG Crystals detection in urine sediment by light microscopy NONE NRG Casts detection in urine sediment by light microscopy NONE NRG Mucus detection in urine sediment by light microscopy NEGATIVE NRG Complete urinalysis with reflex to culture NO NRG Capillary blood glucose measurement by glucometer (mass/volume) - 08/31/18 16: 23 Capillary blood glucose measurement by glucometer (mass/volume) 143 mg/dL 70-110 Capillary blood glucose measurement by glucometer (mass/volume) - 08/31/18 20: 59 Capillary blood glucose measurement by glucometer (mass/volume) 162 mg/dL 70-110 Capillary blood glucose measurement by glucometer (mass/volume) - 09/01/18 05: 53 Capillary blood glucose measurement by glucometer (mass/volume) 189 mg/dL 70-110 Comprehensive metabolic panel - 09/01/18 06:05 Serum or plasma sodium measurement (moles/volume) 139 mmol/L 135-145 Serum or plasma potassium measurement (moles/volume) 5.5 mmol/L 3.6-5.0 Serum or plasma chloride measurement (moles/volume) 106 mmol/L 98-107 Carbon dioxide 23 mmol/L 21-32 Serum or plasma anion gap determination (moles/volume) 10 mmol/L 5-14 Serum or plasma urea nitrogen measurement (mass/volume) 39 mg/dL 7-18 Serum or plasma creatinine measurement (mass/volume) 1.32 mg/dL 0.60-1.30 Serum or plasma urea nitrogen/creatinine mass ratio 30 NRG Serum or plasma creatinine measurement with calculation of estimated glomerular filtration rate 44 NRG Serum or plasma glucose measurement (mass/volume) 200 mg/dL 70-105 Serum or plasma calcium measurement (mass/volume) 9.0 mg/dL 8.5-10.1 Serum or plasma total bilirubin measurement (mass/volume) 0.6 mg/dL 0.1-1.0 Serum or plasma alkaline phosphatase measurement (enzymatic activity/volume) 49 U/L 40-136 Serum or plasma aspartate aminotransferase measurement (enzymatic activity/ volume) 34 U/L 5-34 Serum or plasma alanine aminotransferase measurement (enzymatic activity/volume ) 32 U/L 0-55 Serum or plasma protein measurement (mass/volume) 6.6 g/dL 6.4-8.2 Serum or plasma albumin measurement (mass/volume) 3.5 g/dL 3.2-4.5 CALCIUM CORRECTED 9.4 mg/dL 8.5-10.1 Capillary blood glucose measurement by glucometer (mass/volume) - 09/01/18 10: 53 Capillary blood glucose measurement by glucometer (mass/volume) 248 mg/dL 70-110 Encounters ACCT No. Visit Date/Time Discharge Status Pt. Type Provider Facility Loc./Unit Complaint [id number] 08/30/2018 10:45:00 09/01/2018 12:54:00 DIS Inpatient PHILLIP CARDENAS DOLINE S [facility] 4TH DEHYDRATION [id number] 08/16/2018 12:56:00 08/16/2018 23:59:59 CLS Outpatient PHILLIP CARDENAS DOLINE S [facility] RAD BILATERAL LE EDEMA [id number] 04/02/2018 10:45:00 04/02/2018 23:59:59 CLS Outpatient CONNOR BARDALES DO [facility] RAD SCREENING MAMMOGRAM [id number] 02/16/2018 12:45:00 02/16/2018 23:59:59 CLS Outpatient PHILLIP CARDENAS DOLINE S [facility] RAD HEMATURIA [id number] 09/01/2017 12:54:00 09/29/2017 10:52:00 DIS Outpatient YORDAN CARDENAS DOQUELINE S [facility] REHAB UNSTEADY GAIT; FALL RISK; CAUDA EQUINA [id number] 07/18/2017 12:54:00 07/18/2017 23:59:59 CLS Outpatient KAITLIN BROWNE MD [facility] RAD HYPERTENSION [id number] 06/02/2017 12:08:00 06/02/2017 23:59:59 CLS Outpatient PHILLIP CARDENAS DOLINE S [facility] RAD RT ELBOW PAIN [id number] 05/23/2017 14:33:00 05/23/2017 23:59:59 CLS Outpatient VERONIKA OSORIO [facility] RAD RT ELBOW PAIN POST FALL [id number] 04/07/2017 19:10:00 04/09/2017 13:05:00 DIS Inpatient PHILLIP CARDENAS DOLINE S [facility] 4TH HYPERGLYCEMIA HYPEROSMOLAR,LACTIC ACIDOSIS,UTI [id number] 11/25/2015 16:55:00 11/25/2015 23:59:59 CLS Outpatient ORENDER DO NUVIA S [facility] RAD L ELBOW/ WRIST PAIN WITH RECENT FALL [id number] 09/03/2015 00:08:00 09/03/2015 23:59:59 CLS Preadmit ORENDER DO, NUVIA S [facility] SURG RCR OSTEOMYELITIS [id number] 06/25/2015 07:37:00 09/02/2015 00:01:00 DIS Outpatient ORENDER DO, NUVIA S [facility] SURG RCR OSTEOMYELITIS [id number] 06/03/2015 07:37:00 06/03/2015 00:01:00 DIS Outpatient ORENDER DO NUVIA S [facility] SURG RCR OSTEOMYELITIS [id number] 04/15/2015 15:14:00 06/03/2015 00:01:00 DIS Outpatient ORENDER DO NUVIA S [facility] DSME UNCONTROLLED DIABETES TYPE 1 [id number] 05/12/2015 14:29:00 05/20/2015 21:00:00 DIS Inpatient ORENDER DO NUVIA S [facility] SURGICAL FRACTURE LEFT HALLUX [id number] 05/09/2015 19:24:00 05/09/2015 23:59:59 CLS Outpatient LIV SHIN [facility] QUICK [id number] 05/09/2015 20:15:00 05/09/2015 23:26:00 DIS Outpatient LAURA DIAZ APRN [facility] ER TOE INJURY [id number] 01/15/2015 18:56:00 01/18/2015 14:59:00 DIS Inpatient ORENDER DO NUVIA S [facility] 4TH UNCONTROLLED DIABETES [id number] 11/24/2014 10:58:00 11/24/2014 23:59:59 CLS Outpatient ORENDER DO, NUVIA S [facility] CARD LEFT 5TH TOE AND LATERAL FOOT PAIN [id number] 07/14/2014 15:26:00 07/16/2014 16:45:00 DIS Inpatient ORENDER DO, NUVIA S [facility] 4TH DEHYDRATION [id number] 04/11/2014 14:30:00 04/11/2014 23:59:59 CLS Outpatient NUVIA CARDENAS DO [facility] REHAB R SHOULDER PAIN; L LEG WEAKNESS FOOT DROP [id number] 01/28/2014 19:42:00 01/28/2014 23:59:59 CLS Outpatient BRITT REYES [facility] RAD R SHOULDER PAIN ,S/P FALL [id number] 08/06/2013 07:28:00 08/07/2013 10:55:00 DIS Outpatient CONNOR BARDALES DO [facility] COMPLEX HYPERPLASIA AND ATIBIA [id number] 07/18/2013 12:20:00 07/18/2013 23:59:59 CLS Outpatient CONNOR BARDALES DO [facility] PREOP CPP [id number] 07/15/2013 16:11:00 07/15/2013 18:29:00 DIS Emergency PRAFUL ROY, FIORDALIZA Xiao [facility] ER KNOT IN R LEG POSS CLOT [id number] 06/18/2013 09:20:00 06/18/2013 23:59:59 CLS Outpatient CONNOR BARDALES DO [facility] THICKENED ENDROMETRIUM [id number] 06/17/2013 09:51:00 06/17/2013 23:59:59 CLS Outpatient CONNOR BARDALES DO [facility] PREOP THICKENED ENDROMETRIUM [id number] 02/22/2013 14:23:00 02/22/2013 23:59:59 CLS Outpatient NUVIA CARDENAS DO [facility] RAD MENORRHEA [id number] 12/28/2012 14:14:00 01/17/2013 10:57:00 DIS Outpatient NUVIA CARDENAS DO [facility] REHAB LOW BACK PAIN CAUDA EQUINA SYNDROME [id number] 04/25/2018 13:57:00 Document Registration [id number] 11/11/2014 14:23:00 Document Registration [id number] 11/05/2012 13:54:00 Document Registration [id number] 09/14/2012 07:30:00 Document Registration [id number] 08/31/2012 00:13:00 Document Registration [id number] 01/23/2012 13:44:00 Document Registration [id number] 01/04/2012 10:17:00 Document Registration [id number] 12/16/2011 19:35:00 Document Registration [id number] 12/23/2009 14:54:00 Document Registration 12/29/10 10/08/2018 11:21:16 10/08/2018 23:59:59 Nuvia Mares
--- NOTE | 2019-01-08 14:26 | NUR ---
JOSE D JOHN admitted to room 425-1, with an admitting diagnosis of abd wall abcess, on 01/08/19 from via wheelchair, accompanied by staff.JOSE D JOHN introduced to surroundings, call light, bed controls, phone, TV, temperature control, lights, meal times, smoking policy, visitor policy, side rail policy, bathrooms and showers. Patient Rights given to patient in the handbook. JOSE D JOHN verbalizes understanding that [facility] is not responsible for the loss or damage to any personal effects or valuables that are kept in the patients posession during their hospitalization. The following Patient Care Plans were discussed with the pt: Discharge Planning. JOSE D JOHN verbalizes understanding of Interdisciplinary Patient Education. Patient and/or family were informed about the Rapid Response Team and its purpose.
[2019-01-08 14:30] VITALS: BP 136/63
[2019-01-08] MEDS ORDERED: ONDANSETRON 4 MG/2 ML (SDV) Z0FRAN IVP PRN (14:45)
[2019-01-08] MEDS ORDERED: PATIENT MAY USE OWN MEDS, ALL PO SCH (14:45)
[2019-01-08] MEDS ORDERED: CLINDAMYCIN 900 MG/50 ML IVPB 50 ML IV NR (14:45)
[2019-01-08] MEDS ORDERED: CATHETER FLUSH 10 ML SYR IV PRN (15:00)
[2019-01-08] MEDS ORDERED: oxyCODONE/APAP 10/325MG (PERCOCET 10) TABLET PO PRN (15:00)
[2019-01-08 15:15] LABS: BASOPHILS % (AUTO) 0 % (0-10); EOSINOPHILS # (AUTO) 0.1 10^3/uL (0.0-0.3); EOSINOPHILS % (AUTO) 3 % (0-10); HEMATOCRIT 39 % (35-52); HEMOGLOBIN 12.7 G/DL (11.5-16.0); LYMPHOCYTES # (AUTO) 1.8 X 10^3 (1.0-4.0); LYMPHOCYTES % (AUTO) 35 % (12-44); MEAN CORPUSCULAR HEMOGLOBIN 28 PG (25-34); MEAN CORPUSCULAR HGB CONC 32 G/DL (32-36); MEAN CORPUSCULAR VOLUME 88 FL (80-99); MEAN PLATELET VOLUME 9.8 FL (7.4-10.4); MONOCYTES # (AUTO) 0.4 X 10^3 (0.0-1.0); MONOCYTES % (AUTO) 7 % (0-12); NEUTROPHILS # (AUTO) 2.9 X 10^3 (1.8-7.8); NEUTROPHILS % (AUTO) 56 % (42-75); PLATELET COUNT 194 10^3/uL (130-400); RED CELL DISTRIBUTION WIDTH 14.9 % (10.0-14.5); WHITE BLOOD COUNT 5.2 10^3/uL (4.3-11.0)
[2019-01-08 15:33] LABS: BILIRUBIN,TOTAL 0.5 MG/DL (0.1-1.0); CALCIUM 10.1 MG/DL (8.5-10.1); CREATININE SERUM 1.11 MG/DL (0.60-1.30); POTASSIUM 4.8 MMOL/L (3.6-5.0); TOTAL PROTEIN 7.3 GM/DL (6.4-8.2)
[2019-01-08] MEDS: NS IV 1000 ML 1,000 ML IV SCH (15:36)
[2019-01-08] MEDS ORDERED: CLIN300C11 PO (15:39)
[2019-01-08] MEDS ORDERED: ALLO300T2 PO (15:39)
[2019-01-08] MEDS ORDERED: METF500T8 PO (15:39)
[2019-01-08 16:00] VITALS: BP 118/70
[2019-01-08] MEDS: inSUlin ASPART (NovoLOG) 1 UNIT/0.01 ML (CHARGE PER UNIT) SC SCH ×2 (16:03→21:08)
--- NOTE | 2019-01-08 16:19 | Consultation (Surgery) ---
History of Present Illness History of Present Illness Patient Consulted On(jose/time) 01/08/19 16:12 Date Seen by Provider: January 08, 2019 Time Seen by Provider: 16:12 Reason for Visit: Abdominal Wall Abscess History of Present Illness Consult requested by Dr. Wilson for Abdominal Wall Abscess 43 y/o F is a direct admit for evaluation of abdominal wall abscess. Patient states that about 3 weeks ago she either had a bug/spider bite or possibly an in -grown hair that caused slight pain to the lower abdomen. Over time the area began to increase in size, warmth, and redness. Patient felt the affected area and stated that it felt like a hard egg underneath her skin. She began to feel feverish and was directed to come to our hospital for evaluation and management of abscess. She endorses nausea, abdominal pain and constipation. She denies vomiting, SOB, CP, CARLSON, Diarrhea and subjective fever. Allergies and Home Medications Allergies Coded Allergies: Penicillins (Verified Allergy, Mild, HIVES; HAS RECEIVED ANCEF W/O PROBLEMS, 08/06/13) Home Medications Allopurinol 300 Mg Tablet, 300 MG PO HS, (Reported) Budesonide/Formoterol Fumarate 10.2 Gm Hfa.aer.ad, 2 PUFF IH BID PRN for SHORTNESS OF BREATH, (Reported) Cholecalciferol (Vitamin D3) 2,000 Unit Capsule, 2,000 UNIT PO DAILY, (Reported) Clindamycin HCl 300 Mg Capsule, 600 MG PO TID, (Reported) 10 DAY SUPPLY FILLED 01-07-19 Cyanocobalamin (Vitamin B-12) 1,000 Mcg Tablet, 1,000 MCG PO DAILY, (Reported) Cyclobenzaprine HCl 10 Mg Tablet, 20 MG PO BID, (Reported) TAKES 2 (10MG) TABLETS Duloxetine HCl 60 Mg Capsule.dr, 60 MG PO DAILY, (Reported) Fenofibrate,Micronized 200 Mg Capsule, 200 MG PO HS, (Reported) Insulin Regular, Human 500 Unit/1 Ml Insuln.pen, 230 UNITS SC 0800,1730, ( Reported) Insulin Regular, Human 500 Unit/1 Ml Insuln.pen, 200 UNIT SQ 1200, (Reported) Levothyroxine Sodium 175 Mcg Tablet, 175 MCG PO HS, (Reported) Loratadine 10 Mg Tablet, 10 MG PO HS, (Reported) Melatonin 10 Mg Tablet, 10 MG PO HS, (Reported) Metformin HCl 500 Mg Tab.er.24h, 500 MG PO 1200,1800, (Reported) Metoclopramide HCl 10 Mg Tablet, 20 MG PO BID WITH MEALS, (Reported) TAKES 2 (10MG) TABLETS Montelukast Sodium 10 Mg Tablet, 10 MG PO HS, (Reported) Naloxegol Oxalate 25 Mg Tablet, 25 MG PO DAILY PRN for CONSTIPATION, (Reported) Nifedipine 30 Mg Tab.er.24, 30 MG PO HS, (Reported) Olmesartan Medoxomil 20 Mg Tablet, 20 MG PO HS, (Reported) Omeprazole 40 Mg Capsule.dr, 40 MG PO HS, (Reported) Oxycodone HCl 40 Mg Tab.er.12h, 40 MG PO BID, (Reported) Oxycodone Hcl 5 Mg Tab, 10 MG PO Q4H PRN for PAIN-SEVERE, (Reported) Patient Home Medication List Home Medication List Reviewed: Yes Past Whwmarr-Rpqfsb-Lhksjx Hx Patient Social History Alcohol Use: Denies Use Recreational Drug Use: No Type Used: Cigarettes Recent Foreign Travel: No Contact w/Someone Who Travel: No Recent Infectious Disease Expo: No Recent Hopitalizations: No (SURGERIES) Physical Abuse Screen: No Sexual Abuse: No Immunizations Up To Date Tetanus Booster (TDap): Unknown PED Vaccines UTD: Yes Date of Pneumonia Vaccine: Sep 04, 2012 Date of Influenza Vaccine: Jul 03, 2013 Seasonal Allergies Seasonal Allergies: No Surgeries History of Surgeries: Yes (DALI FILTER , back surgeries, thyroid nodule removed) Surgeries: Neurological, Orthopedic, Thyroidectomy (Left lobe thyroidectomy) Respiratory History of Respiratory Disorde: Yes (uses inhaler) Respiratory Disorders: Asthma Cardiovascular History of Cardiac Disorders: Yes Cardiac Disorders: Deep Vein Thrombosis, Hypertension Neurological History of Neurological Disord: Yes (neuropathy) Neurological Disorders: Paralysis Reproductive System Hx Reproductive Disorders: Yes (polycystic ovarian syndrome) Sexually Transmitted Disease: No HIV/AIDS: No Female Reproductive Disorders: Polycystic 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 Genitourinary History of Genitourinary Disor: Yes Genitourinary Disorders: UTI-Chronic Gastrointestinal History of Gastrointestinal Di: Yes Gastrointestinal Disorders: Chronic Constipation Musculoskeletal History of Musculoskeletal Dis: Yes Musculoskeletal Disorders: Foot Drop, Chronic Back Pain, Gout Endocrine History of Endocrine Disorders: Yes Endocrine Disorders: Diabetes, Insulin dep, Hypothyroidsim HEENT History of HEENT Disorders: No Loss of Vision: Denies Hearing Impairment: Denies Cancer History of Cancer: No Psychosocial History of Psychiatric Problem: Yes Behavioral Health Disorders: Anxiety, Depression Integumentary History of Skin or Integumenta: No Skin/Integumentary Disorders: Recent Skin Changes Blood Transfusions History of Blood Disorders: Yes ( DVT IN LEGS AND ARMS, DALI FILTER) Adverse Reaction to a Blood Tr: No Reviewed Nursing Assessment Reviewed/Agree w Nursing PMH: Yes Family Medical History Significant Family History: No Pertinent Family Hx Family Medial History: Human immunodeficiency virus (HIV) seropositivity 03 FATHER No Family History of: Cancer Family history: Cardiovascular disease Family history: Gastrointestinal disease History of - respiratory disease Review of Systems-General Constitutional: no symptoms reported EENTM: no symptoms reported Respiratory: no symptoms reported Cardiovascular: no symptoms reported Gastrointestinal: see HPI, abdominal pain (Lower abdominal ), constipation, nausea Genitourinary: no symptoms reported Musculoskeletal: no symptoms reported Skin: see HPI Psychiatric/Neurological: No Symptoms Reported Physical Exam-General Problems Physical Exam Vital Signs Vital Signs - First Documented Capillary Refill : General Appearance: WD/WN, no apparent distress HEENT: PERRL/EOMI, normal ENT inspection Neck: non-tender, full range of motion Respiratory: chest non-tender, no respiratory distress, no accessory muscle use Cardiovascular: regular rate, rhythm Gastrointestinal: soft, tenderness, other (2 cm x 2 cm fluctuance located below the umbilicus, that is tender to palpation, erythematous and warm to touch. 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 II-XII nml as tested, no motor/sensory deficits, alert, oriented x 3 Skin: warm/dry Lymphatic: no adenopathy Data Review Labs Laboratory Tests 01/08/19 15:06: White Blood Count 5.2, Red Blood Count 4.50, Hemoglobin 12.7, Hematocrit 39, Mean Corpuscular Volume 88, Mean Corpuscular Hemoglobin 28, Mean Corpuscular Hemoglobin Concent 32, Red Cell Distribution Width 14.9H, Platelet Count 194, Mean Platelet Volume 9.8, Neutrophils (%) (Auto) 56, Lymphocytes (%) (Auto) 35, Monocytes (%) (Auto) 7, Eosinophils (%) (Auto) 3, Basophils (%) (Auto) 0, Neutrophils # (Auto) 2.9, Lymphocytes # (Auto) 1.8, Monocytes # (Auto) 0.4, Eosinophils # (Auto) 0.1, Basophils # (Auto) 0.0, Sodium Level 138, Potassium Level 4.8, Chloride Level 103, Carbon Dioxide Level 27, Anion Gap 8, Blood Urea Nitrogen 15, Creatinine 1.11, Estimat Glomerular Filtration Rate 53, BUN/ Creatinine Ratio 14, Glucose Level 252H, Calcium Level 10.1, Corrected Calcium 10.1, Total Bilirubin 0.5, Aspartate Amino Transf (AST/SGOT) 49H, Alanine Aminotransferase (ALT/SGPT) 50, Alkaline Phosphatase 75, Total Protein 7.3, Albumin 4.0 Assessment/Plan Assessment/Plan Admission Diagonsis Abdominal Wall Abscess Assessment/Plan Abdominal Wall Absess with area of necrosis DM - I & D planned for this evening - IV ABx - Wound Culture - Pain management - CCD Diet - Will follow Clinical Quality Measures DVT/VTE Risk/Contraindication: Risk Factor Score Per Nursin RFS Level Per Nursing on Admit: 4+=Very High Supervisory-Addendum Brief Supervisory Addendum Participated in pt care: history, MDM, physical Personally performed: exam, history, MDM, supervision of care Care discussed with: other Results interpretation: agree with documentation RUTH COVARRUBIAS RESIDENT January 08, 2019 16:19 JUAN CARLOS HUYNH DO January 08, 2019 19:18
[2019-01-08] MEDS ORDERED: LIDOCAINE 2% 20 ML (XYLOCAINE) VIAL INJ ONE (16:45)
[2019-01-08] MEDS ORDERED: OXC5T PO (18:17)
--- NOTE | 2019-01-08 19:14 | History & Physicial ---
History of Present Illness History of Present Illness Reason for visit/HPI This is a 43 year old poorly controlled diabetic who presented to my office in followup for a lower abdominal abscess. The patient had been seen the day prior and the abscess was open and draining so she was sent to the hospital for IV vancomycin and started on clindamycin and scheduled to follow up today. She still had induration with more drainage from the abscess expressed so it was decided to admit her for IV antibiotics and surgical consult. Date of Admission January 08, 2019 at 14:07 Date Seen by a Provider: January 08, 2019 Time Seen by a Provider: 11:00 I consulted on this patient on 01/08/19 19:09 Attending Physician Nuvia Wilson DO Admitting Physician Nuvia Wilson DO Consult Allergies and Home Medications Allergies Coded Allergies: Penicillins (Verified Allergy, Mild, HIVES; HAS RECEIVED ANCEF W/O PROBLEMS, 08/06/13) Home Medications Allopurinol 300 Mg Tablet, 300 MG PO HS, (Reported) Budesonide/Formoterol Fumarate 10.2 Gm Hfa.aer.ad, 2 PUFF IH BID PRN for SHORTNESS OF BREATH, (Reported) Cholecalciferol (Vitamin D3) 2,000 Unit Capsule, 2,000 UNIT PO DAILY, (Reported) Clindamycin HCl 300 Mg Capsule, 600 MG PO TID, (Reported) 10 DAY SUPPLY FILLED 01-07-19 Cyanocobalamin (Vitamin B-12) 1,000 Mcg Tablet, 1,000 MCG PO DAILY, (Reported) Cyclobenzaprine HCl 10 Mg Tablet, 20 MG PO BID, (Reported) TAKES 2 (10MG) TABLETS Duloxetine HCl 60 Mg Capsule.dr, 60 MG PO DAILY, (Reported) Fenofibrate,Micronized 200 Mg Capsule, 200 MG PO HS, (Reported) Insulin Regular, Human 500 Unit/1 Ml Insuln.pen, 230 UNITS SC 0800,1730, ( Reported) Insulin Regular, Human 500 Unit/1 Ml Insuln.pen, 200 UNIT SQ 1200, (Reported) Levothyroxine Sodium 175 Mcg Tablet, 175 MCG PO HS, (Reported) Loratadine 10 Mg Tablet, 10 MG PO HS, (Reported) Melatonin 10 Mg Tablet, 10 MG PO HS, (Reported) Metformin HCl 500 Mg Tab.er.24h, 500 MG PO 1200,1800, (Reported) Metoclopramide HCl 10 Mg Tablet, 20 MG PO BID WITH MEALS, (Reported) TAKES 2 (10MG) TABLETS Montelukast Sodium 10 Mg Tablet, 10 MG PO HS, (Reported) Naloxegol Oxalate 25 Mg Tablet, 25 MG PO DAILY PRN for CONSTIPATION, (Reported) Nifedipine 30 Mg Tab.er.24, 30 MG PO HS, (Reported) Olmesartan Medoxomil 20 Mg Tablet, 20 MG PO HS, (Reported) Omeprazole 40 Mg Capsule.dr, 40 MG PO HS, (Reported) Oxycodone HCl 40 Mg Tab.er.12h, 40 MG PO BID, (Reported) Oxycodone Hcl 5 Mg Tab, 10 MG PO Q4H PRN for PAIN-SEVERE, (Reported) Patient Home Medication List Home Medication List Reviewed: Yes Past Ynglouj-Pcfgra-Qhcijc Hx Patient Social History Alcohol Use: Denies Use Recreational Drug Use: No Type Used: Cigarettes Physical Abuse Screen: No Sexual Abuse: No Recent Foreign Travel: No Contact w/other who traveled: No Recent Hopitalizations: No (SURGERIES) Recent Infectious Disease Expo: No Immunizations Up To Date Tetanus Booster (TDap): Unknown Pediatric: Yes Date of Pneumonia Vaccine: Sep 04, 2012 Date of Influenza Vaccine: Jul 03, 2013 Seasonal Allergies Seasonal Allergies: No Surgeries Yes (DALI FILTER , back surgeries, thyroid nodule removed) Neurological, Orthopedic, Thyroidectomy (Left lobe thyroidectomy) Respiratory Yes (uses inhaler) Cardiovascular Yes Deep Vein Thrombosis, Hypertension Neurological Yes (neuropathy) Paralysis Reproductive System Hx Reproductive Disorders: Yes (polycystic ovarian syndrome) Sexually Transmitted Disease: No HIV/AIDS: No Female Reproductive Disorders: Polycystic Ovarian Dis [employer] History: Hysterectomy Genitourinary Yes UTI-Chronic Gastrointestinal Yes Chronic Constipation Musculoskeletal Yes Foot Drop, Chronic Back Pain, Gout Endocrine History of Endocrine Disorders: Yes Endocrine Disorders: Diabetes, Insulin dep, Hypothyroidsim HEENT History of HEENT Disorders: No Loss of Vision: Denies Hearing Impairment: Denies Cancer No Psychosocial History of Psychiatric Problem: Yes Behavioral Health Disorders: Anxiety, Depression Integumentary History of Skin or Integumenta: No Skin/Integumentary Disorders: Recent Skin Changes Blood Transfusions History of Blood Disorders: Yes ( DVT IN LEGS AND ARMS, DALI FILTER) Adverse Reaction to a Blood Tr: No Reviewed Nursing Assessment Reviewed/Agree w Nursing PMH: Yes Family Medical History Significant Family History: No Pertinent Family Hx Family Hx: Human immunodeficiency virus (HIV) seropositivity 03 FATHER No Family History of: Cancer Family history: Cardiovascular disease Family history: Gastrointestinal disease History of - respiratory disease Review of Systems Constitutional: diaphoresis, weakness EENTM: No see HPI, No no symptoms reported, No ear discharge, No hearing loss, No ear pain, No blurred vision, No double vision, No eye pain, No tearing, No vision loss, No dental problems, No hoarseness, No mouth pain, No mouth swelling , No epistaxis, No nose congestion, No nose pain, No throat pain, No throat swelling, No other Respiratory: No no symptoms reported, No see HPI, No cough, No dyspnea on exertion, No hemoptysis, No orthopnea, No phlegm, No short of breath, No stridor , No wheezing, No other Cardiovascular: No no symptoms reported, No see HPI, No chest pain, No edema, No Hx of Intervention, No palpitations, No syncope, No vascular heart diseas, No other Gastrointestinal: No RUQ, No LUQ, No RLQ, No LLQ, No no symptoms reported, No see HPI, No abdominal pain, No constipation, No diarrhea, No dysphagia, No hematemesis, No heartburn, No jaundice, No loss of appetite, No melena, No nausea, No vomiting, No other Genitourinary: No no symptoms reported, No see HPI, No decreased output, No discharge, No dysuria, No frequency, No hematuria, No hesitancy, No incontinence , No nocturia, No pain, No other Musculoskeletal: back pain, muscle weakness Skin: other (abscess to lower abdomen) Psychiatric/Neurological: Paresthesia, Pre-Existing Deficit, Weakness Physical Exam Vital Signs Vital Signs - First Documented Capillary Refill : Height, Weight, BMI Height: 5'8.00" Weight: 286lbs. 1.0oz. 129.772735dw; 43.5 BMI Method:Stated General Appearance: No Apparent Distress HEENT: Normal ENT Inspection Neck: Supple Respiratory: Lungs Clear Cardiovascular: Regular Rate, Rhythm Gastrointestinal: Normal Bowel Sounds, Soft, Other (lower abdomen in supapubic area with indurated area of erthema with 1cm cental area of necrosis and purulent drainage) Rectal: Deferred Back: No CVA Tenderness Extremity: Non Tender, No Calf Tenderness, No Pedal Edema Neurologic/Psychiatric: Alert, Oriented x3, Abnormal Gait (foot drop, using cane), Motor Weakness Skin: Warm/Dry, Erythema (as above to abdomen) Comments Laboratory Tests 01/08/19 15:06: White Blood Count 5.2, Red Blood Count 4.50, Hemoglobin 12.7, Hematocrit 39, Mean Corpuscular Volume 88, Mean Corpuscular Hemoglobin 28, Mean Corpuscular Hemoglobin Concent 32, Red Cell Distribution Width 14.9H, Platelet Count 194, Mean Platelet Volume 9.8, Neutrophils (%) (Auto) 56, Lymphocytes (%) (Auto) 35, Monocytes (%) (Auto) 7, Eosinophils (%) (Auto) 3, Basophils (%) (Auto) 0, Neutrophils # (Auto) 2.9, Lymphocytes # (Auto) 1.8, Monocytes # (Auto) 0.4, Eosinophils # (Auto) 0.1, Basophils # (Auto) 0.0, Sodium Level 138, Potassium Level 4.8, Chloride Level 103, Carbon Dioxide Level 27, Anion Gap 8, Blood Urea Nitrogen 15, Creatinine 1.11, Estimat Glomerular Filtration Rate 53, BUN/ Creatinine Ratio 14, Glucose Level 252H, Calcium Level 10.1, Corrected Calcium 10.1, Total Bilirubin 0.5, Aspartate Amino Transf (AST/SGOT) 49H, Alanine Aminotransferase (ALT/SGPT) 50, Alkaline Phosphatase 75, Total Protein 7.3, Albumin 4.0 01/08/19 16:42: Glucometer 162H Assessment/Plan Assessment and Plan 1. Abdominal Wall Abscess--admit and start IV clindamycin, consult surgery for I and D 2. Diabetes mellitus--insulin requiring--start SSI 3. Hypertension--resume home meds 4. Cauda Equina Syndrome with Chronic Pain--resume home doses of oxycontin and oxycodone Admission Diagnosis Admission Status: Inpatient Order (span 2 midnights) Reason for Inpatient Admission: Will need IV antibiotics and surgical debridement Clinical Quality Measures DVT/VTE Risk/Contraindication: Risk Factor Score Per Nursin RFS Level Per Nursing on Admit: 4+=Very High NUVIA WILSON DO January 08, 2019 19:14
[2019-01-08] MEDS ORDERED: NON-FORMULARY MEDICATION 1 EA EA (Budesonide/Formoterol Fumarate (Symbicort 160-4.5 Mcg In IH PRN (19:15)
[2019-01-08] MEDS ORDERED: RT-ADVAIR HFA 115/21 MCG PER PUFF IH PRN (19:15)
[2019-01-08 20:00] VITALS: BP 143/69
[2019-01-08] MEDS ORDERED: NON-FORMULARY MEDICATION 1 EA EA (Omeprazole 40 MG) PO SCH (21:00)
[2019-01-08] MEDS ORDERED: NON-FORMULARY MEDICATION 1 EA EA (Levothyroxine Sodium 175 MCG) PO SCH (21:00)
[2019-01-08] MEDS ORDERED: OXYCODONE HCL 40 MG PO SCH (21:00)
[2019-01-08] MEDS ORDERED: NIFEDIPINE 30 MG PO SCH (21:00)
[2019-01-08] MEDS ORDERED: NON-FORMULARY MEDICATION 1 EA EA (Melatonin 10 MG) PO SCH (21:00)
[2019-01-08] MEDS ORDERED: NON-FORMULARY MEDICATION 1 EA EA (Olmesartan Medoxomil 20 MG) PO SCH (21:00)
[2019-01-08] MEDS: oxyCODONE ER 40 MG (oxyCONTIN CR) TAB PO SCH (21:21)
[2019-01-08] MEDS: NIFEdipine ER 30 MG (PROCARDIA XL) TAB PO SCH (21:29)
[2019-01-08] MEDS: CYCLOBENZAPRINE 10 MG (FLEXERIL) TAB PO SCH (21:29)
[2019-01-08] MEDS: LOSARTAN 100 MG (COZAAR) TABLET PO SCH (21:30)
[2019-01-08] MEDS: LEVOTHYROXINE 100 MCG (LEVOTHROID) TAB PO SCH (21:30)
[2019-01-08] MEDS: PANTOPRAZOLE 40 MG (PROTONIX) TAB PO SCH (21:30)
[2019-01-08] MEDS: MELATONIN 3 MG TABLET PO SCH (21:31)
[2019-01-08] MEDS: LEVOTHYROXINE 75 MCG (LEVOTHROID) TABLET PO SCH (21:31)
[2019-01-08] MEDS: CLINDAMYCIN 900 MG/50 ML IVPB 50 ML IV SCH (21:31)
--- NOTE | 2019-01-08 23:43 | OPERATIVE REPORT ---
DATE OF SERVICE: 01/08/2019 PREOPERATIVE DIAGNOSIS: Abdominal wall abscess with skin necrosis. POSTOPERATIVE DIAGNOSIS: Abdominal wall abscess with skin necrosis. PROCEDURE: Incision and drainage of abdominal wall abscess and debridement of necrotic skin 1.5 x 2 cm and sharp debridement. SURGEON: Juan Carlos Anaya DO ANESTHESIA: 4 mL of 1% lidocaine. ESTIMATED BLOOD LOSS: None. COMPLICATIONS: None. INDICATIONS: The patient is a 43-year-old female with abdominal wall abscess with skin necrosis. She was explained risks and benefits of procedure and wished to proceed with procedure. Consent was signed and on the chart. DESCRIPTION OF PROCEDURE: The patient was prepped and draped in sterile fashion. Timeout was performed. Local anesthetic was injected and once anesthetic effect took place, a 15 blade scalpel was used to open the abscess. Purulent material erupted. Culture was obtained. The necrotic skin, which measured 1.5 x 2 cm was then sharply excised with a 15 blade scalpel. The loculations were broken up within the abscess. The wound was then irrigated with copious amounts of irrigation. The wound was then packed with quarter-inch iodoform gauze and area was washed and dried and sterile bandage was applied. The patient tolerated procedure well without any complications. Job ID: [id number] DocumentID: [id number] Dictated Date: 01/08/2019 19:20:29 Relocation Director Date: 01/08/2019 23:42:54 Dictated By: JUAN CARLOS ANAYA DO
[2019-01-09] VITALS: BP 151/87
[2019-01-09] MEDS: NS IV 1000 ML 1,000 ML IV SCH (00:35)
[2019-01-09 04:28] VITALS: BP 142/58
[2019-01-09] MEDS: CLINDAMYCIN 900 MG/50 ML IVPB 50 ML IV SCH ×3 (07:00→22:05)
[2019-01-09] MEDS: inSUlin ASPART (NovoLOG) 1 UNIT/0.01 ML (CHARGE PER UNIT) SC SCH ×4 (07:46→21:12)
[2019-01-09 08:04] VITALS: BP 138/73
[2019-01-09] MEDS: CYCLOBENZAPRINE 10 MG (FLEXERIL) TAB PO SCH ×2 (08:14→20:44)
[2019-01-09] MEDS: DULoxetine 30 MG (CYMBALTA) CAP PO SCH (08:14)
[2019-01-09] MEDS: OXYCODONE IR 10 MG PO PRN ×2 (08:14→10:42)
[2019-01-09] MEDS: oxyCODONE ER 40 MG (oxyCONTIN CR) TAB PO SCH ×2 (08:20→20:43)
--- NOTE | 2019-01-09 08:35 | Progress Note ---
Subjective Date Seen by a Provider: January 09, 2019 Time Seen by a Provider: 07:30 Subjective/Events-last exam Patient seen and examined at bedside this morning, with no acute events overnight. Patient had an abdominal wall abscess that was incised and drained yesterday, with debridement of necrotic tissue and packing of the wound. She states that she feels well today and has no concerns or complaints at this time. She denies subjective fever, SOB, CP, Abd pain, N/V/D and weakness. Objective Exam Vital Signs Date Time Temp Pulse Resp B/P (MAP) Pulse Ox O2 Delivery O2 Flow Rate FiO2 01/09/19 08:04 97.0 81 18 138/73 (94) 95 Room Air 01/09/19 04:28 96.8 77 18 142/58 (86) 90 Room Air 01/09/19 00:00 97.9 89 18 151/87 (108) 94 Room Air 01/08/19 20:00 Room Air 01/08/19 20:00 98.9 86 18 143/69 (93) 93 Room Air 01/08/19 16:00 97.6 83 18 118/70 (86) 93 Room Air 01/08/19 14:30 96.9 86 20 136/63 (87) 94 Room Air 01/08/19 14:30 96.9 86 20 136/63 94 Room Air I & O 01/09/19 07:00 Intake Total 2500 ml Balance 2500 ml Capillary Refill : Less Than 3 Seconds General Appearance: No Apparent Distress HEENT: Normal ENT Inspection Neck: Supple Respiratory: Lungs Clear Cardiovascular: Regular Rate, Rhythm Gastrointestinal: soft, tenderness, other (Wound is packed and bandaged. The area is clean and dry. No pus or necrotic tissue visualized. ) Extremity: Non Tender, No Calf Tenderness, No Pedal Edema Neurologic/Psychiatric: Alert, Oriented x3, Abnormal Gait (foot drop, using cane), Motor Weakness Skin: Warm/Dry, Erythema (as above to abdomen) Results Lab Laboratory Tests 01/08/19 15:06: White Blood Count 5.2, Red Blood Count 4.50, Hemoglobin 12.7, Hematocrit 39, Mean Corpuscular Volume 88, Mean Corpuscular Hemoglobin 28, Mean Corpuscular Hemoglobin Concent 32, Red Cell Distribution Width 14.9H, Platelet Count 194, Mean Platelet Volume 9.8, Neutrophils (%) (Auto) 56, Lymphocytes (%) (Auto) 35, Monocytes (%) (Auto) 7, Eosinophils (%) (Auto) 3, Basophils (%) (Auto) 0, Neutrophils # (Auto) 2.9, Lymphocytes # (Auto) 1.8, Monocytes # (Auto) 0.4, Eosinophils # (Auto) 0.1, Basophils # (Auto) 0.0, Sodium Level 138, Potassium Level 4.8, Chloride Level 103, Carbon Dioxide Level 27, Anion Gap 8, Blood Urea Nitrogen 15, Creatinine 1.11, Estimat Glomerular Filtration Rate 53, BUN/ Creatinine Ratio 14, Glucose Level 252H, Calcium Level 10.1, Corrected Calcium 10.1, Total Bilirubin 0.5, Aspartate Amino Transf (AST/SGOT) 49H, Alanine Aminotransferase (ALT/SGPT) 50, Alkaline Phosphatase 75, Total Protein 7.3, Albumin 4.0 01/08/19 16:42: Glucometer 162H 01/09/19 05:36: Glucometer 313H Assessment/Plan Assessment/Plan Assessment/Plan S/P Abdominal Wall Absess I&D and debridement DM - ABx - Daily wound cleaning and bandage change while in hospital - Instructed patient that after discharge she needs to change the bandage either on her own or by coming into the clinic to have it done - Wound Culture pending - Pain management - Diet - Will follow Clinical Quality Measures DVT/VTE Risk/Contraindication: Risk Factor Score Per Nursin RFS Level Per Nursing on Admit: 4+=Very High Supervisory-Addendum Brief Supervisory Addendum Participated in pt care: history, MDM, physical Personally performed: exam, history, MDM, supervision of care Results interpretation: agree with documentation RUTH COVARRUBIAS RESIDENT January 09, 2019 08:35 JUAN CARLOS HUYNH DO January 09, 2019 14:27
[2019-01-09] MEDS ORDERED: NON-FORMULARY MEDICATION 1 EA EA (Duloxetine HCl 60 MG) PO SCH (09:00)
[2019-01-09 12:00] VITALS: BP 132/79
[2019-01-09] MEDS ORDERED: inSUlin NPH/REG (NovoLIN 70/30) CHARGE PER UNIT SQ NR (13:00)
[2019-01-09 15:56] VITALS: BP 121/77
[2019-01-09] MEDS: inSUlin NPH/REG (NovoLIN 70/30) CHARGE PER UNIT SQ SCH (18:11)
--- NOTE | 2019-01-09 18:21 | Progress Note (SOAP) ---
Subjective Date Seen by a Provider: January 09, 2019 Time Seen by a Provider: 12:30 Subjective/Events-last exam Fwup abdominal wall abscess, uncontrolled diabetes--insulin requiring, HTN, Cauda Equina Syndrome with chronic pain. Wound debrided at bedside last night and now packing in place. Objective Exam Vital Signs Date Time Temp Pulse Resp B/P (MAP) Pulse Ox O2 Delivery O2 Flow Rate FiO2 01/09/19 15:56 97.8 68 18 121/77 (92) 95 Room Air 01/09/19 12:00 96.4 66 20 132/79 (96) 94 Room Air 01/09/19 08:22 Room Air 01/09/19 08:04 97.0 81 18 138/73 (94) 95 Room Air 01/09/19 04:28 96.8 77 18 142/58 (86) 90 Room Air 01/09/19 00:00 97.9 89 18 151/87 (108) 94 Room Air 01/08/19 20:00 Room Air 01/08/19 20:00 98.9 86 18 143/69 (93) 93 Room Air I & O 01/09/19 07:00 Intake Total 2500 ml Balance 2500 ml Capillary Refill : Less Than 3 Seconds General Appearance: No Apparent Distress Neck: Supple Respiratory: Lungs Clear Cardiovascular: Regular Rate, Rhythm Extremity: Non Tender, No Calf Tenderness, No Pedal Edema Neurologic/Psychiatric: Alert, Oriented x3 Skin: Warm/Dry, Erythema (lower abdominal wound with dressing/packing in place- -still some induration and surrounding erythema) Results Lab Laboratory Tests 01/09/19 05:36: Glucometer 313H 01/09/19 10:32: Glucometer 384H 01/09/19 15:56: Glucometer 280H Microbiology 01/08/19 Gram Stain - Final, Resulted 01/08/19 Wound Culture - Preliminary, Resulted No growth Assessment/Plan Assessment/Plan Assess & Plan/Chief Complaint 1. Abdominal Wall Abscess--S/P I and D, on clindamycin 2. Uncontrolled DM--insulin requiring--resume humulin dose 3. Hypertension--back on home meds 4. Cauda Equina with Chronic Pain--back on home pain meds Clinical Quality Measures Admission Status Admission Dx 1. Abdominal Wall Abscess--admit and start IV clindamycin, consult surgery for I and D 2. Diabetes mellitus--insulin requiring--start SSI 3. Hypertension--resume home meds 4. Cauda Equina Syndrome with Chronic Pain--resume home doses of oxycontin and oxycodone DVT/VTE Risk/Contraindication: Risk Factor Score Per Nursin RFS Level Per Nursing on Admit: 4+=Very High BENNETT CARDENAS DO January 09, 2019 18:21
[2019-01-09] MEDS: ENOXAPARIN 40 MG/0.4 ML (LOVENOX) SYR SC SCH (18:39)
[2019-01-09 19:25] VITALS: BP 132/70
[2019-01-09] MEDS: LEVOTHYROXINE 75 MCG (LEVOTHROID) TABLET PO SCH (20:43)
[2019-01-09] MEDS: MELATONIN 3 MG TABLET PO SCH (20:43)
[2019-01-09] MEDS: NIFEdipine ER 30 MG (PROCARDIA XL) TAB PO SCH (20:44)
[2019-01-09] MEDS: PANTOPRAZOLE 40 MG (PROTONIX) TAB PO SCH (20:44)
[2019-01-09] MEDS: LOSARTAN 100 MG (COZAAR) TABLET PO SCH (20:44)
[2019-01-09] MEDS: LEVOTHYROXINE 100 MCG (LEVOTHROID) TAB PO SCH (20:44)
[2019-01-10] VITALS: BP 152/76
[2019-01-10] MEDS: OXYCODONE IR 10 MG PO PRN ×3 (00:45→16:09)
[2019-01-10 04:35] VITALS: BP_SYST 115; BP_SYST 121; BP_DIAS 58; BP_DIAS 75
[2019-01-10] MEDS: ENOXAPARIN 40 MG/0.4 ML (LOVENOX) SYR SC SCH ×2 (06:32→17:50)
[2019-01-10] MEDS: LACTOBACILLUS ACIDOPHILUS (PROBIOTIC) CAPSULE PO SCH ×3 (06:32→17:50)
[2019-01-10] MEDS: inSUlin ASPART (NovoLOG) 1 UNIT/0.01 ML (CHARGE PER UNIT) SC SCH ×4 (06:32→21:17)
[2019-01-10] MEDS: CLINDAMYCIN 900 MG/50 ML IVPB 50 ML IV SCH ×3 (06:33→21:16)
[2019-01-10 08:00] VITALS: BP 160/76
[2019-01-10] MEDS: DULoxetine 30 MG (CYMBALTA) CAP PO SCH (09:19)
[2019-01-10] MEDS: CYCLOBENZAPRINE 10 MG (FLEXERIL) TAB PO SCH ×2 (09:19→21:14)
[2019-01-10] MEDS: inSUlin NPH/REG (NovoLIN 70/30) CHARGE PER UNIT SQ SCH ×2 (09:19→17:50)
[2019-01-10] MEDS: oxyCODONE ER 40 MG (oxyCONTIN CR) TAB PO SCH ×2 (09:28→21:15)
--- NOTE | 2019-01-10 09:30 | NUR ---
OXYIR 10 PO FOR BACKPAIN.
[2019-01-10 12:00] VITALS: BP 139/68
--- NOTE | 2019-01-10 12:51 | Progress Note ---
Subjective Date Seen by a Provider: January 10, 2019 Time Seen by a Provider: 11:55 Subjective/Events-last exam Patient seen and examined at bedside this morning with no acute events overnight. She is now 2 days s/p I&D of abdominal wall abscess. She does endorse mild to moderate abdominal pain that has been well controlled with medication. Patient denies any subjective fever, SOB, CP, N/V/D, and headache. Objective Exam Vital Signs Date Time Temp Pulse Resp B/P (MAP) Pulse Ox O2 Delivery O2 Flow Rate FiO2 01/10/19 08:00 97.0 85 20 160/76 (104) 93 Room Air 01/10/19 04:35 97.4 70 20 115/58 (77) 92 Room Air 01/10/19 00:00 96.7 77 16 152/76 (101) 92 Room Air 01/09/19 20:40 Room Air 01/09/19 19:25 97.0 67 20 132/70 (90) 92 Room Air 01/09/19 15:56 97.8 68 18 121/77 (92) 95 Room Air I & O 01/10/19 07:00 Intake Total 1580 ml Balance 1580 ml Capillary Refill : Less Than 3 Seconds General Appearance: No Apparent Distress HEENT: PERRL/EOMI, Normal ENT Inspection Neck: Normal Inspection, Non Tender, Supple Respiratory: Lungs Clear Cardiovascular: Regular Rate, Rhythm Gastrointestinal: soft, tenderness, other (Wound is packed and bandaged. The area is clean and dry. No pus or necrotic tissue visualized. ) Extremity: Non Tender, No Calf Tenderness, No Pedal Edema Neurologic/Psychiatric: Alert, Oriented x3 Skin: Warm/Dry, Erythema (lower abdominal wound with dressing/packing in place- -still some induration and surrounding erythema) Results Lab Laboratory Tests 01/09/19 15:56: Glucometer 280H 01/09/19 20:52: Glucometer 352H 01/10/19 05:05: Glucometer 296H 01/10/19 11:28: Glucometer 318H Microbiology 01/08/19 Gram Stain - Final, Resulted 01/08/19 Wound Culture - Preliminary, Resulted No growth Assessment/Plan Assessment/Plan Assessment/Plan Abdominal Wall Abscess - Day 2 s/p I&D of abscess - IV ABx with Clindamycin - Pain medication - Will continue to follow - Informed patient of importance of wound dressing changes and if needed to come to the clinic to have it changed cultures pending Clinical Quality Measures DVT/VTE Risk/Contraindication: Risk Factor Score Per Nursin RFS Level Per Nursing on Admit: 4+=Very High Supervisory-Addendum Brief Supervisory Addendum Participated in pt care: history, MDM, physical Personally performed: exam, history, MDM, supervision of care Care discussed with: other (Seen and evaluated with Dr. Rob Covarrubias) Results interpretation: agree with documentation RUTH COVARRUBIAS RESIDENT January 10, 2019 12:51 JUAN CARLOS HUYNH DO January 10, 2019 21:00
--- NOTE | 2019-01-10 15:11 | NUR ---
CM/SS, visited with patient regarding discharge planning. Patient continues on IV Rx at this time, dose and duration not known for overall care plan. Patient states she could come to [facility] outpatient [facility] daily for IV Rx if needed. Otherwise, independent for ADL's.
[2019-01-10 15:43] VITALS: BP 134/64
--- NOTE | 2019-01-10 16:50 | NUR ---
ORDER FOR DRESSING CHANGE DAILY. REQUESTS THAT WE WAIT UNTIL MOTHER GETS HERE THIS PM, SO SHE CAN SEE HOW DRESSING IS DONE FOR DISCHARGE.
[2019-01-10] MEDS: LOSARTAN 100 MG (COZAAR) TABLET PO SCH (21:14)
[2019-01-10] MEDS: LEVOTHYROXINE 100 MCG (LEVOTHROID) TAB PO SCH (21:14)
[2019-01-10] MEDS: MELATONIN 3 MG TABLET PO SCH (21:14)
[2019-01-10] MEDS: PANTOPRAZOLE 40 MG (PROTONIX) TAB PO SCH (21:15)
[2019-01-10] MEDS: LEVOTHYROXINE 75 MCG (LEVOTHROID) TABLET PO SCH (21:15)
[2019-01-10] MEDS: NIFEdipine ER 30 MG (PROCARDIA XL) TAB PO SCH (21:15)
--- NOTE | 2019-01-10 21:59 | Progress Note (SOAP) ---
Subjective Date Seen by a Provider: January 10, 2019 Time Seen by a Provider: 08:40 Subjective/Events-last exam Fwup abdominal wall abscess, uncontrolled diabetes--insulin requiring, HTN, Cauda Equina Syndrome with chronic pain. Still c/o pain in abscess area. Objective Exam Vital Signs Date Time Temp Pulse Resp B/P (MAP) Pulse Ox O2 Delivery O2 Flow Rate FiO2 01/10/19 15:43 96.8 68 20 134/64 (87) 93 Room Air 01/10/19 12:00 97.2 87 20 139/68 (91) 92 Room Air 01/10/19 08:00 97.0 85 20 160/76 (104) 93 Room Air 01/10/19 08:00 Room Air 01/10/19 04:35 97.4 70 20 115/58 (77) 92 Room Air 01/10/19 00:00 96.7 77 16 152/76 (101) 92 Room Air I & O 01/10/19 07:00 Intake Total 1580 ml Balance 1580 ml Capillary Refill : Less Than 3 Seconds General Appearance: No Apparent Distress Respiratory: Lungs Clear Gastrointestinal: normal bowel sounds, non tender, soft Extremity: Non Tender, No Calf Tenderness, No Pedal Edema Neurologic/Psychiatric: Alert, Oriented x3 Skin: Other (lower abdominal wall abscess with packing in place and dry dressing--less erythema and induration) Results Lab Laboratory Tests 01/10/19 05:05: Glucometer 296H 01/10/19 11:28: Glucometer 318H 01/10/19 15:43: Glucometer 352H 01/10/19 20:40: Glucometer 293H Microbiology 01/08/19 Gram Stain - Final, Resulted 01/08/19 Wound Culture - Preliminary, Resulted No growth Assessment/Plan Assessment/Plan Assess & Plan/Chief Complaint 1. Abdominal Wall Abscess--S/P I and D, on clindamycin 2. Uncontrolled DM--insulin requiring--increase humulin dose 3. Hypertension--back on home meds 4. Cauda Equina with Chronic Pain--back on home pain meds Clinical Quality Measures Admission Status Admission Dx 1. Abdominal Wall Abscess--admit and start IV clindamycin, consult surgery for I and D 2. Diabetes mellitus--insulin requiring--start SSI 3. Hypertension--resume home meds 4. Cauda Equina Syndrome with Chronic Pain--resume home doses of oxycontin and oxycodone DVT/VTE Risk/Contraindication: Risk Factor Score Per Nursin RFS Level Per Nursing on Admit: 4+=Very High BENNETT CARDENAS DO January 10, 2019 21:59
[2019-01-11 00:27] VITALS: BP 159/73
[2019-01-11] MEDS: OXYCODONE IR 10 MG PO PRN (03:04)
[2019-01-11] MEDS: ENOXAPARIN 40 MG/0.4 ML (LOVENOX) SYR SC SCH (06:29)
[2019-01-11] MEDS: CLINDAMYCIN 900 MG/50 ML IVPB 50 ML IV SCH ×2 (06:29→12:02)
[2019-01-11] MEDS: LACTOBACILLUS ACIDOPHILUS (PROBIOTIC) CAPSULE PO SCH ×2 (06:29→12:02)
[2019-01-11] MEDS: inSUlin ASPART (NovoLOG) 1 UNIT/0.01 ML (CHARGE PER UNIT) SC SCH ×2 (06:29→12:02)
[2019-01-11 08:00] VITALS: BP 120/56
[2019-01-11] MEDS: DULoxetine 30 MG (CYMBALTA) CAP PO SCH (08:39)
[2019-01-11] MEDS: inSUlin NPH/REG (NovoLIN 70/30) CHARGE PER UNIT SQ SCH (08:39)
[2019-01-11] MEDS: CYCLOBENZAPRINE 10 MG (FLEXERIL) TAB PO SCH (08:40)
[2019-01-11] MEDS: oxyCODONE ER 40 MG (oxyCONTIN CR) TAB PO SCH (08:40)
--- NOTE | 2019-01-11 09:40 | Progress Note ---
Subjective Date Seen by a Provider: January 11, 2019 Time Seen by a Provider: 09:20 Subjective/Events-last exam Patient seen and examined at bedside this morning with no acute events reported overnight. Patient continues to improve after I&D/debridement of abdominal abscess. She endorses slight abdominal pain, however it has been well controlled with medication. Patient informed me that her mother came to the hospital yesterday to learn how to properly change the wound packing and dressing and will be helping the patient with dressing changes. She denies subjective fever, SOB, N/V/D, CP, and chills. Objective Exam Vital Signs Date Time Temp Pulse Resp B/P (MAP) Pulse Ox O2 Delivery O2 Flow Rate FiO2 01/11/19 08:00 97.2 85 20 120/56 (77) 94 Room Air 01/11/19 00:27 96.2 77 17 159/73 (101) 95 Room Air 01/10/19 20:45 Room Air 01/10/19 15:43 96.8 68 20 134/64 (87) 93 Room Air 01/10/19 12:00 97.2 87 20 139/68 (91) 92 Room Air I & O 01/11/19 07:00 Intake Total 2310 ml Balance 2310 ml Capillary Refill : Less Than 3 Seconds General Appearance: No Apparent Distress HEENT: PERRL/EOMI, Normal ENT Inspection Neck: Normal Inspection, Non Tender, Supple Respiratory: Lungs Clear Cardiovascular: Regular Rate, Rhythm Gastrointestinal: normal bowel sounds, non tender, soft Extremity: Non Tender, No Calf Tenderness, No Pedal Edema Neurologic/Psychiatric: Alert, Oriented x3 Skin: Other (lower abdominal wall less erythema/induration no purulent drainage ) Results Lab Laboratory Tests 01/10/19 11:28: Glucometer 318H 01/10/19 15:43: Glucometer 352H 01/10/19 20:40: Glucometer 293H 01/11/19 06:23: Glucometer 345H Microbiology 01/08/19 Gram Stain - Final, Resulted 01/08/19 Wound Culture - Preliminary, Resulted No growth Assessment/Plan Assessment/Plan Assessment/Plan Abdominal Wall Abscess Uncontrolled DM - S/P I&D and debridement - IV Clindamycin - Daily wound dressing changes - Patient's mother will help in dressing changes - If unable to change dressing, instructed to come to our clinic for it to be done -Likely dc home today Clinical Quality Measures DVT/VTE Risk/Contraindication: Risk Factor Score Per Nursin RFS Level Per Nursing on Admit: 4+=Very High Supervisory-Addendum Brief Supervisory Addendum Participated in pt care: history, MDM, physical Personally performed: exam, history, supervision of care Care discussed with: other (Dr Mariano Covarrubias/Mariano Fregoso) Results interpretation: agree with documentation RUTH COVARRUBIAS RESIDENT January 11, 2019 09:40 JUAN CARLOS HUYNH DO January 11, 2019 18:19
[2019-01-11] MEDS ORDERED: LACT460C PO (10:56)
--- NOTE | 2019-01-11 10:58 | Discharge Inst-Simple/Standard ---
Discharge Inst-Standard Discharge Medications New, Converted or Re-Newed RX: Transmitted to Pharmacy Patient Instructions/Follow Up Plan of Care/Instructions/FU: Fwup with Dr. Anaya early next week for wound check Activity as Tolerated: Yes Discharge Diet: ADA Diet Other Inst to Patient Wound packing/dressing change daily BENNETT CARDENAS DO January 11, 2019 10:57
[2019-01-11 13:42] VITALS: BP 120/56
--- NOTE | 2019-01-11 14:08 | Discharge Summary ---
Diagnosis/Chief Complaint Date of Admission January 08, 2019 at 14:07 Date of Discharge January 11, 2019 at 13:45 Discharge Date: January 11, 2019 Discharge Diagnosis 1. Abdominal Wall Abscess--S/P I and D 2. Diabetes mellitus--insulin requiring--resume home insulin dose 3. Hypertension--stable 4. Cauda Equina Syndrome with Chronic Pain--stable Reason Hospital Visit This is a 43 year old poorly controlled diabetic who presented to my office in followup for a lower abdominal abscess. The patient had been seen the day prior and the abscess was open and draining so she was sent to the hospital for IV vancomycin and started on clindamycin and scheduled to follow up today. She still had induration with more drainage from the abscess expressed so it was decided to admit her for IV antibiotics and surgical consult. Discharge Summary Hospital Course Hospital Course This is a 43 year old poorly controlled diabetic who presented to my office in followup for a lower abdominal abscess. The patient had been seen the day prior and the abscess was open and draining so she was sent to the hospital for IV vancomycin and started on clindamycin and scheduled to follow up today. She still had induration with more drainage from the abscess expressed so it was decided to admit her for IV antibiotics and surgical consult. She was admitted to the medical floor and started on IV clindamycin. Surgery was consulted and I and D of the abscess was accomplished at bedside via local anesthesia. The wound was then packed and this was changed daily. She had no fever spikes during her hospital stay and by the day of discharge the wound was much improved with much less induration and less erythema as well as less pain. She will be sent home to pack the wound with a dressing change daily which her mom will be able to do and she did come up during her dressing change to assess how to do this. She will resume clindamycin as well as her previous home medications and start a daily probiotic. She will followup with Dr. Anaya next week in his office. Labs Laboratory Tests 01/08/19 15:06: Red Cell Distribution Width 14.9H, Glucose Level 252H, Aspartate Amino Transf ( AST/SGOT) 49H 01/08/19 16:42: Glucometer 162H 01/09/19 05:36: Glucometer 313H 01/09/19 10:32: Glucometer 384H 01/09/19 15:56: Glucometer 280H 01/09/19 20:52: Glucometer 352H 01/10/19 05:05: Glucometer 296H 01/10/19 11:28: Glucometer 318H 01/10/19 15:43: Glucometer 352H 01/10/19 20:40: Glucometer 293H 01/11/19 06:23: Glucometer 345H 01/11/19 11:06: Glucometer 394H Procedures None. Discharge Physical Examination Allergies: Coded Allergies: Penicillins (Verified Allergy, Mild, HIVES; HAS RECEIVED ANCEF W/O PROBLEMS, 08/06/13) Vitals & I&Os Vital Signs Date Time Temp Pulse Resp B/P (MAP) Pulse Ox O2 Delivery O2 Flow Rate FiO2 01/11/19 13:42 85 20 120/56 94 Room Air 01/11/19 08:00 97.2 General Appearance: Alert, Oriented X3, Cooperative Respiratory: Clear to Auscultation Cardiovascular: Regular Rate Extremities: No Clubbing, No Cyanosis, No Edema Skin: Other (lower abdominal abscess with packing in place and less erythema and induration) Psych/Mental Status: Mental Status NL, Mood NL Discharge Home Medications Reviewed and agree with Discharge Medication list on patient's Discharge Instruction sheet Instructions to Patient/Family Please see electronic discharge instructions given to patient. Clinical Quality Measures DVT/VTE Risk/Contraindication: Risk Factor Score Per Nursin RFS Level Per Nursing on Admit: 4+=Very High BENNETT CARDENAS DO January 11, 2019 14:08
== END 2019-01-11 13:45 | disposition home or self-care (01) | DRG 603 ==
LOC: 4TH 14:07 → UNDOADMOB 14:07 → UNDODISOB 01-11 13:45 → EDSTATUS 01-14 15:37
PROVIDERS: ADMIT Family Medicine; ATTEND Family Medicine
PROC: 0HB7XZZ Excision of Abdomen Skin, External Approach (ICD-10-PCS; principal; 2019-01-08)
PROC: 0W9F3ZZ Drainage of Abdominal Wall, Percutaneous Approach (ICD-10-PCS; 2019-01-08)
DX: L02.211 Cutaneous abscess of abdominal wall (principal); G83.4 Cauda equina syndrome; G89.29 Other chronic pain; E11.65 Type 2 diabetes mellitus with hyperglycemia; F17.210 Nicotine dependence, cigarettes, uncomplicated; J45.909 Unspecified asthma, uncomplicated; I10 Essential (primary) hypertension; E89.0 Postprocedural hypothyroidism; K59.09 Other constipation; E11.40 Type 2 diabetes mellitus with diabetic neuropathy, unspecified; E28.2 Polycystic ovarian syndrome; F41.9 Anxiety disorder, unspecified; F32.9 Major depressive disorder, single episode, unspecified; Z86.718 Personal history of other venous thrombosis and embolism; Z79.4 Long term (current) use of insulin; Z79.891 Long term (current) use of opiate analgesic
CPT/HCPCS: 36415; 80053; 82962; 85025; 87070; 87077; 87205

== ENCOUNTER → 2019-01-29 | Outpatient (CLI) | payer MEDICARE, MEDICAID ==
[~2019-01-29] MED LIST changes: +ALLO300T2 PO; +LACT460C PO; +METF500T8 PO; +OXC5T PO
--- NOTE | 2019-01-29 17:59 | Diagnostic Imaging Report ---
INDICATION: Left toe injury, dropped a 2 x 4 onto the toes. TIME OF EXAM: 3:51 PM FINDINGS: Multiple views left second toe were obtained. Alignment of the second toe is normal. No definite fracture is seen. Soft tissues are unremarkable. IMPRESSION: No acute bony abnormality is detected. Dictated by: Dictated on workstation # [id number]
== END ==
LOC: RAD 15:38
PROVIDERS: ATTEND Family Medicine
DX: S99.922A Unspecified injury of left foot, initial encounter (principal); W20.8XXA Other cause of strike by thrown, projected or falling object, initial encounter
CPT/HCPCS: 73660

== ENCOUNTER 2019-02-16 20:51 | Outpatient (CLI) | payer MEDICARE, MEDICAID | END 2019-02-17 06:45 | disposition home or self-care (01) | LOC: SLEEP 20:51 | PROVIDERS: ATTEND Family Medicine | DX: G47.33 Obstructive sleep apnea (adult) (pediatric) (principal); G47.10 Hypersomnia, unspecified; I10 Essential (primary) hypertension; G47.61 Periodic limb movement disorder; R06.83 Snoring; F39 Unspecified mood [affective] disorder | CPT/HCPCS: 95810 ==

== ENCOUNTER 2019-06-05 08:29 | Day surgery (SDC) | payer MEDICARE, MEDICAID ==
[~2019-06-05] VITALS: Ht 173 cm; Wt 118.0 kg
[2019-06-05] VITALS (8 sets, daily range): BP systolic 95–157; BP diastolic 53–82
[~2019-06-05 08:29] MED LIST changes: +CYAN-41 PO; -CYAN10006 PO; -DULO60CA58 PO; +DULO60CA59 PO
[2019-06-05] MEDS ORDERED: LIDOCAINE 1% INJ 20 ML 20 ML VIAL ONE (08:37)
[2019-06-05] MEDS ORDERED: HEParin (CATH LAB) 2,000 ML IV ONE (08:37)
[2019-06-05] MEDS ORDERED: NS IV 1000 ML 1,000 ML IV SCH ×2 (08:45→11:06)
[2019-06-05 09:03] LABS: HEMOGLOBIN 12.7 G/DL (11.5-16.0); MEAN PLATELET VOLUME 10.1 FL (7.4-10.4); RED CELL DISTRIBUTION WIDTH 13.8 % (10.0-14.5); WHITE BLOOD COUNT 6.1 10^3/uL (4.3-11.0)
[2019-06-05 09:09] LABS: BILIRUBIN,URINE NEGATIVE (NEGATIVE); CLARITY,URINE CLEAR; COLOR,URINE YELLOW; GLUCOSE, URINE (UA) 2+ (NEGATIVE); KETONES,URINE 1+ (NEGATIVE); LEUKOCYTE ESTERASE ,URINE 3+ (NEGATIVE); NITRITE,URINE NEGATIVE (NEGATIVE); PH,URINE 5 (5-9); PROTEIN,URINE 2+ (NEGATIVE); UROBILINOGEN,URINE NORMAL (NORMAL)
--- NOTE | 2019-06-05 09:16 | Diagnostic Imaging Report ---
INDICATION: CP,CAD,HLP,TOBACCOISM. TECHNIQUE: Single frontal view of the chest COMPARISON: CTA chest on 04/07/2017. FINDINGS: The lung volumes are normal. No focal consolidation is seen. No large pleural effusion or pneumothorax is seen. There is slight elevation of the right hemidiaphragm. The cardiomediastinal silhouette is prominent. No acute osseous abnormality is seen. IMPRESSION: 1. Cardiomegaly. No focal consolidation or mass. Dictated by: Dictated on workstation # [id number]
[2019-06-05 09:17] LABS: BACTERIA,URINE MODERATE /HPF; WBC,URINE TNTC /HPF
[2019-06-05] MEDS ORDERED: ONDA4TAB11 PO (09:19)
[2019-06-05] MEDS ORDERED: ATOR40TA PO (09:19)
[2019-06-05] MEDS ORDERED: CARV3.12 PO (09:19)
[2019-06-05] MEDS ORDERED: PRAS10TA6 PO (09:19)
[2019-06-05 09:24] LABS: ALBUMIN 4.2 GM/DL (3.2-4.5); BILIRUBIN,TOTAL 0.5 MG/DL (0.1-1.0); CREATININE SERUM 1.3 MG/DL (0.60-1.30); POTASSIUM 5.1 MMOL/L (3.6-5.0); TOTAL PROTEIN 7.8 GM/DL (6.4-8.2)
[2019-06-05] MEDS ORDERED: ASPI-999 PO (09:32)
[2019-06-05] MEDS ORDERED: MULT-1112 PO (09:32)
[2019-06-05] MEDS ORDERED: OXYC10TA7 PO (09:32)
[2019-06-05] MEDS ORDERED: inSUlin (REGULAR) HUMAN 1 UNIT/0.01 ML (CHARGE PER UNIT) ONE (09:36)
--- NOTE | 2019-06-05 09:49 | NUR ---
SPOKE WITH PT (SHE HAD ALL HOME MEDS WITH HER) WELL CALLING [facility] TO COMPLETE THE MED REC. THE FOLLOWING DATES ARE WHAT THE PHARMACIES HAVE REPORT: 05-12-2019 CARVEDILOL #60/30DS 05-12-2019 ATORVASTATIN #30/30DS 05-12-2019 ONDANSETRON 05-12-2019 NIFEDIPINE #30/30DS 05-12-2019 EFFIENT #30/30DS 05-13-2019 CYCLOBENZAPRINE #120/30DS 05-13-2019 HUMULIN R 32DS 05-13-2019 METFORMIN ER 500MG #180/90DS 05-20-2019 ALLOPURINOL #30/30DS 05-20-2019 DULOXETINE #30/30DS 05-20-2019 FENOFIBRATE #30/30DS 05-20-2019 LEVOTHYROXINE #30/30DS 05-20-2019 METOCLOPRAMIDE #120/120 DS 05-20-2019 MONTELUKAST #30/30 05-20-2019 OLMESARTAN #30/30DS 05-20-2019 OMEPRAZOLE #30/30DS 05-28-2019 OXYCODONE 10MG #180/30DS 05-28-2019 OXYCONTIN 40MG #60/30DS METOCLOPRAMIDE 10MG: DIRECTIONS ON THE BOTTLE STATE: 1 TAB BEFORE MEALS AND BEDTIME; HOWEVER THE PT ONLY TAKES 1 TAB ONCE DAILY OTC MEDS: CENTRUM CHEWABLE: 1 DAILY ASPIRIN 81M DAILY VITAMIN D: 1 DAILY VITAMIN B12: 1 DAILY LORATADINE: 1 DAILY MELATONIN 10M HS
[2019-06-05] MEDS ORDERED: MIDAZOLAM 5 MG/5 ML (VERSED) VIAL ONE (10:27)
[2019-06-05] MEDS ORDERED: VERAPAMIL 5 MG/2 ML (CALAN) VIAL IV ONE (10:27)
[2019-06-05] MEDS ORDERED: fentaNYL INJECTION 100 MCG/2 ML AMP ONE (10:27)
[2019-06-05] MEDS ORDERED: HEParin 1000 UNIT/ML (10ML VIAL) FOR BOLUS ONE (10:27)
[2019-06-05] MEDS ORDERED: NITRO DRIP 25000 MCG/D5W 250 ML IV ONE (10:27)
--- NOTE | 2019-06-05 10:44 | Cardiac Procedure Note-CS/ASA ---
Pre-Procedure Note Pre-Op Procedure Note H&P Reviewed The H&P was reviewed, patient examined and no changes noted. Date H&P Reviewed: Jun 05, 2019 Time H&P Reviewed: 10:43 Conscious Sedation Pre-Proced Time 10:43 ASA Score 3 For ASA 3 and 4: Consider anesthesia and medical clearance. Also, for patients with a history of failed moderate sedation consider anesthesia. Airway Lungs Heart ASA score ASA 1: a normal healthy patient ASA 2: a patient with a mild systemic disease (mid diabetes, controlled hypertension, obesity x ASA 3: a patient with a severe systemic disease that limits activity (angina, COPD, prior Myocardial infarction) ASA 4: a patient with an incapacitating disease that is a constant threat to life (CHF, renal failure) ASA 5: a moribund patient not expected to survive 24 hrs. (ruptured aneurysm) ASA 6: a declared brain- patient whose organs are being harvested. For emergent operations, add the letter E after the classification Mallampati Classification Grade 3 Sedation Plan Analgesia, Amnesia, Plan communicated to team members, Discussed options with patient/fam, Discussed risks with patient/fam The patient is an appropriate candidate to undergo the planned procedure, sedation, and anesthesia. The patient immediately re-assessed prior to indication. KAITLIN BROWNE MD Jun 05, 2019 10:44
--- NOTE | 2019-06-05 11:06 | Cardiac Cath Report ---
Cardiac Cath Report Physician (s)/Tag Marker (s) Physician KAITLIN BROWNE MD Pre-Procedure Diagnosis Pre-Procedure Diagnosis: Coronary artery disease Post-Procedure Note Procedure Start Date: Jun 05, 2019 Name of Procedure: Left heart catheterization Left ventriculogram Findings/Procedure Note PROCEDURE NOTE: 43-year-old lady with history of coronary artery disease had a stent to the LAD, she reported to me that she had a lesion in the right coronary artery requiring intervention at a later point. I decided to proceed with a cardiac catheterization and evaluate her coronary anatomy. After explaining the procedure to the patient, all pros and cons were explained, all questions were answered. The patient signed the consent and then she was placed on the cardiac catheterization laboratory. Groin was prepped SL fashion local anesthesia was used. Sheath placed in the right radial artery, Canyon catheter was used advanced to the left ventricular cavity left ventriculogram was done, pulled back to the left coronary system and angiogram was done and then to the right coronary system and angiogram was done. At the end of the procedure the sheath was removed. vascular band was used FINDINGS: Hemodynamics LV was 13/14 end-diastolic pressure 14 Aorta 95/65 mean of 66 ANATOMY: Left Main is free of obstructive disease Left Anterior Descending has patent stent proximally tortuous artery at the midportion no obstructive disease Left Circumflex has mild disease with no obstructive disease Right Coronory Artery has 40-50 percent stenosed at the midportion dominant artery tortuous artery with no obstructive disease LV Gram was done showing normal left ventricular size and systolic function estimated ejection fraction 60 percent CONCLUSION: 1. Patent stent in the proximal LAD, tortuous artery with mild disease no obstructive disease 2. 40-50 percent stenosis in the midright coronary artery tortuous artery with no other obstructive disease 3. Normal left ventricular size and systolic function estimated ejection fraction 60 percent DISCUSSION AND RECOMMENDATION: Continue with medical therapy no intervention is needed Anesthesia Type: Conscious Sedation Estimated blood loss (mL): 10 ml Contrast Amount: 55 ml Total Radiation Dose: 599 mGy Post-Procedure Diagnosis Post-operative diagnosis: Chest pain Coronary artery disease Hypertension Hyperlipidemia KAITLIN BROWNE MD Jun 05, 2019 11:06
[2019-06-05] MEDS ORDERED: METF500T8 PO (11:08)
--- NOTE | 2019-06-05 11:09 | Discharge Inst-Post CATH ---
Discharge Inst-CATH/EP Problems Reviewed?: Yes Post Cardiac Cath/EP D/C Inst Follow Up/Plan Holter metformin for [address] Don's office in 2-4 weeks <b>CARDIAC CATH/EP PROCEDURE DISCHARGE INSTRUCTIONS</b> ACTIVITY * Go Home directly and rest. * Limit activity of the leg (or wrist if it was used) for 7 days including aerobics, swimming, jogging, bicycling, etc. * Restrict stair-climbing for 7 days if possible, if not, climb up with your non-cath leg, then bring together on the same step. * Avoid lifting, pushing, pulling or excessive movement of the affected extremity for 7 days. * Customary sexual activity may be resumed after 2 days-use caution not to use a position that strains or causes pain to the affected extremity. * No driving for 24 hours. * NO SMOKING. * Avoid straining for bowel movements for 7 days. * Gentle walking on level ground is allowed. * Returning to work will depend on the type of procedure and the results. Your doctor will discuss this with you. CALL YOUR DOCTOR FOR ANY OF THE FOLLOWING: *If bleeding from the puncture site occurs- Apply gentle pressure to site with clean cloth and call your doctor or EMS. * If a knot or lump forms under the skin, increases in size, or causes pain. * If bruising appears to be worsening or moving further down your leg instead of disappearing. * Temperature above 101 F. CARE OF YOUR GROIN INCISION; * Bruising or purple discoloration of the skin near the puncture site is common. * You may shower only, no bathtub bathing for 5 days. Be careful to avoid slipping as your leg may feel stiff. * If a closure device was used on your femoral artery, please see the attached guide regarding care of the device and your leg. * Leave dressing on FOR 24 hours. CARE OF YOUR WRIST INCISION; * Bruising or purple discoloration of the skin near the puncture site is common. * You may shower. * DO NOT submerge wrist. * Leave dressing on FOR 24 hours. KAITLIN DON MD Jun 05, 2019 11:09
== END 2019-06-05 13:31 | disposition home or self-care (01) ==
LOC: CATH 08:29 → SDC 11:21 → CATH 13:31
PROVIDERS: ATTEND Internal Medicine Cardiovascular Disease
DX: I25.10 Atherosclerotic heart disease of native coronary artery without angina pectoris (principal); I10 Essential (primary) hypertension; G89.29 Other chronic pain; E78.2 Mixed hyperlipidemia; E11.9 Type 2 diabetes mellitus without complications; F17.210 Nicotine dependence, cigarettes, uncomplicated; I21.9 Acute myocardial infarction, unspecified; Z88.0 Allergy status to penicillin; Z79.4 Long term (current) use of insulin; Z79.899 Other long term (current) drug therapy; Z79.82 Long term (current) use of aspirin; Z79.891 Long term (current) use of opiate analgesic; E28.2 Polycystic ovarian syndrome; Z86.718 Personal history of other venous thrombosis and embolism; E66.9 Obesity, unspecified; Z68.39 Body mass index [BMI] 39.0-39.9, adult; Z90.49 Acquired absence of other specified parts of digestive tract; Z87.440 Personal history of urinary (tract) infections; Z90.710 Acquired absence of both cervix and uterus
CPT/HCPCS: 36415; 36430; 71045; 80053; 80061; 81000; 85027; 85610; 85730; 87077; 87081; 87088; 87186; 93458

== ENCOUNTER 2019-06-13 16:21 | Emergency (ER) | payer MEDICARE, MEDICAID ==
[~2019-06-13] VITALS: Ht 172 cm; Wt 116.0 kg
[~2019-06-13 16:21] MED LIST changes: +ASPI-999 PO; +ATOR40TA PO; +CARV3.12 PO; +MULT-1112 PO; +ONDA4TAB11 PO; +PRAS10TA6 PO
--- NOTE | 2019-06-13 16:36 | ED Upper Extremity ---
General Chief Complaint: Upper Extremity Stated Complaint: RIGHT ARM BURNING,SWELLING AFTER CATH Source: patient Exam Limitations: no limitations History of Present Illness Date Seen by Provider: Jun 13, 2019 Time Seen by Provider: 16:34 Initial Comments Redness and burning to the volar aspect of the right wrist that began this morning, the redness is a bit less intense now than it was. No systemic symptoms. This is at the site of a radial artery catheterization for cardiac catheterization about a week ago. Onset: just prior to arrival Severity: moderate Pain/Injury Location: right arm, right forearm Modifying Factors: Worse With Movement Allergies and Home Medications Allergies Coded Allergies: Penicillins (Verified Allergy, Mild, HIVES; HAS RECEIVED ANCEF W/O PROBLEMS, 08/06/13) Home Medications Allopurinol 300 Mg Tablet, 300 MG PO 1800, (Reported) Aspirin 81 Mg Tab.chew, 81 MG PO DAILY, (Reported) Atorvastatin Calcium 40 Mg Tablet, 40 MG PO 1800, (Reported) Carvedilol 3.125 Mg Tablet, 3.125 MG PO BID WITH MEALS, (Reported) Cephalexin 500 Mg Capsule, 500 MG PO TID Prescribed by: LAURA DIAZ on 06/13/19 175 Cholecalciferol (Vitamin D3) 2,000 Unit Capsule, 2,000 UNIT PO DAILY, (Reported) Cyanocobalamin (Vitamin B-12) 1,000 Mcg Tablet, 1,000 MCG PO DAILY, (Reported) Cyclobenzaprine HCl 10 Mg Tablet, 20 MG PO BID, (Reported) TAKES 2 (10MG) TABLETS Duloxetine HCl 60 Mg Capsule.dr, 60 MG PO DAILY, (Reported) Fenofibrate,Micronized 200 Mg Capsule, 200 MG PO 1800, (Reported) Insulin Regular, Human 500 Unit/1 Ml Insuln.pen, 80 UNIT SQ TIDWM, (Reported) Levothyroxine Sodium 175 Mcg Tablet, 175 MCG PO 1800, (Reported) Loratadine 10 Mg Tablet, 10 MG PO DAILY, (Reported) Melatonin 10 Mg Tablet, 10 MG PO HS, (Reported) Metformin HCl 500 Mg Tab.er.24h, 500 MG PO 1200,1800 hold metformin for 48 hours Prescribed by: KAITLIN BROWNE on 06/05/19 1108 Metoclopramide HCl 10 Mg Tablet, 10 MG PO 1800, (Reported) TAKES 2 (10MG) TABLETS Montelukast Sodium 10 Mg Tablet, 10 MG PO 1800, (Reported) Multivit-Min/Iron/Folic/Vit K1 1 Each Tab.chew, 1 EACH PO DAILY, (Reported) Naloxegol Oxalate 25 Mg Tablet, 25 MG PO DAILY PRN for CONSTIPATION, (Reported) Nifedipine 30 Mg Tab.er.24, 30 MG PO HS, (Reported) Olmesartan Medoxomil 20 Mg Tablet, 20 MG PO 1800, (Reported) Omeprazole 40 Mg Capsule.dr, 40 MG PO DAILY, (Reported) Ondansetron 4 Mg Tab.rapdis, 4 MG PO Q4H PRN for NAUSEA/VOMITING-1ST LINE, (Reported) Oxycodone HCl 40 Mg Tab.er.12h, 40 MG PO BID, (Reported) Oxycodone HCl 10 Mg Tablet, 10 MG PO Q4H PRN for PAIN-SEVERE, (Reported) Prasugrel HCl 10 Mg Tablet, 10 MG PO DAILY, (Reported) Patient Home Medication List Home Medication List Reviewed: Yes Review of Systems Constitutional: see HPI; No chills, No fever EENTM: see HPI Respiratory: no symptoms reported; No short of breath Cardiovascular: no symptoms reported; No chest pain Genitourinary: no symptoms reported Musculoskeletal: no symptoms reported Skin: no symptoms reported Psychiatric/Neurological: No Symptoms Reported Past Qhxulzs-Vcspvy-Xcxttz Hx Patient Social History Type Used: Cigarettes Recent Foreign Travel: No Contact w/Someone Who Travel: No Recent Hopitalizations: Yes (heart cath 06/05) Immunizations Up To Date Tetanus Booster (TDap): Unknown PED Vaccines UTD: Yes Date of Pneumonia Vaccine: Sep 04, 2012 Date of Influenza Vaccine: Jul 03, 2013 Seasonal Allergies Seasonal Allergies: No Past Medical History Surgeries: Yes (DALI FILTER , back surgeries, thyroid nodule removed) Abdominal, Coronary Stent, Gallbladder, Hysterectomy, Orthopedic, Thyroidectomy Respiratory: Yes (uses inhaler PRN) Asthma, Sleep Apnea Currently Using CPAP: Yes Cardiac: Yes Coronary Artery Disease, Deep Vein Thrombosis, Heart Attack, Hypertension Neurological: Yes (neuropathy) Paralysis Reproductive Disorders: Yes (polycystic ovarian syndrome) Female Reproductive Disorders: Polycystic Ovarian Dis 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 Sexually Transmitted Disease: No HIV/AIDS: No Genitourinary: Yes Renal Failure, UTI-Chronic Gastrointestinal: Yes Gastroesophageal Reflux, Chronic Constipation Musculoskeletal: Yes Foot Drop, Chronic Back Pain, Gout Endocrine: Yes Diabetes, Insulin dep, Hypothyroidsim HEENT: No Loss of Vision: Denies Hearing Impairment: Denies Cancer: No Psychosocial: Yes Anxiety, Depression Integumentary: No Recent Skin Changes Blood Disorders: Yes ( DVT IN LEGS AND ARMS, DALI FILTER) Adverse Reaction/Blood Tranf: No Family Medical History Human immunodeficiency virus (HIV) seropositivity 03 FATHER No Family History of: Cancer Family history: Cardiovascular disease Family history: Gastrointestinal disease History of - respiratory disease No Pertinent Family Hx Physical Exam Vital Signs Vital Signs - First Documented 06/13/19 16:28 Temp 36.9 Pulse 87 Resp 16 B/P (MAP) 149/69 (95) Pulse Ox 97 Capillary Refill : Height, Weight, BMI Height: 5'8.00" Weight: 266lbs. 8.0oz. 120.633876co; 39.42 BMI Method:Stated General Appearance: WD/WN, no apparent distress Neck: non-tender, full range of motion Respiratory: no respiratory distress, no accessory muscle use Shoulder: normal inspection, non-tender Elbow/Forearm: Right (volar aspect of the right forearm has about a 3 cm wide by 10-15 cm long area of erythema that is slight with slight induration. There is no obvious swelling) Hand: normal inspection, non-tender Neurologic/Psychiatric: alert, normal mood/affect, oriented x 3 Skin: normal color, warm/dry Progress/Results/Core Measures Results/Orders My Orders Orders - LAURA DIAZ APRN Us Right Up Ext Arterial [id number] (06/13/19 16:27) Cephalexin Capsule (Keflex Capsule) (06/13/19 18:00) Vital Signs/I&O 06/13/19 16:28 Temp 36.9 Pulse 87 Resp 16 B/P (MAP) 149/69 (95) Pulse Ox 97 Departure Impression Primary Impression: Erythema of forearm Disposition: 01 HOME, SELF-CARE Condition: Stable Departure-Patient Inst. Decision time for Depature: 17:50 Referrals: BENNETT CARDENAS DO (PCP/Family) Primary Care Physician Patient Instructions: NO INSTRUCTIONS GIVEN Add. Discharge Instructions: 1. Cool compresses to the area anti-inflammatories like naproxen or aspirin, antibiotics as directed return to ER for any concerns. All discharge instructions reviewed with patient and/or family. Voiced understanding. Scripts Cephalexin (Keflex) 500 Mg Capsule 500 MG PO TID, #15 CAP Prov: LAURA DIAZ APRN 06/13/19 LAURA DIAZ APRN Jun 13, 2019 16:36
--- NOTE | 2019-06-13 17:47 | Diagnostic Imaging Report ---
INDICATION: Right arm burning and pain. Right arm arterial Doppler study performed in a routine fashion with color-flow Doppler and waveform analysis. The right subclavian vein, right axillary vein, and brachial vein all were patent with triphasic flow. The visualized portions of the radial and ulnar arteries are patent and show triphasic flow. There is no AV fistula or hematoma. IMPRESSION: Negative left arm arterial Doppler study. Dictated by: Dictated on workstation # [id number]
[2019-06-13] MEDS ORDERED: CEPH-507 PO (17:51)
[2019-06-13] MEDS ORDERED: CEPHALEXIN 250 MG (KEFLEX) CAP PO ONE (18:00)
[2019-06-13 18:07] VITALS: BP 140/70
== END 2019-06-13 18:00 | disposition home or self-care (01) ==
LOC: EDUNIT# 16:21 → ER 16:22
DX: L53.9 Erythematous condition, unspecified (principal); J45.909 Unspecified asthma, uncomplicated; I10 Essential (primary) hypertension; E11.40 Type 2 diabetes mellitus with diabetic neuropathy, unspecified; I25.2 Old myocardial infarction; I25.10 Atherosclerotic heart disease of native coronary artery without angina pectoris; G47.30 Sleep apnea, unspecified; K21.9 Gastro-esophageal reflux disease without esophagitis; E03.9 Hypothyroidism, unspecified; F41.9 Anxiety disorder, unspecified; F32.9 Major depressive disorder, single episode, unspecified; G83.9 Paralytic syndrome, unspecified; Z87.440 Personal history of urinary (tract) infections; Z86.718 Personal history of other venous thrombosis and embolism; Z99.89 Dependence on other enabling machines and devices; Z95.9 Presence of cardiac and vascular implant and graft, unspecified; Z88.0 Allergy status to penicillin; Z79.82 Long term (current) use of aspirin; Z79.4 Long term (current) use of insulin; Z90.710 Acquired absence of both cervix and uterus
CPT/HCPCS: 93931

== ENCOUNTER 2019-09-25 10:52 | Outpatient (RCR) | payer MEDICARE, MEDICAID ==
[~2019-09-25 10:52] MED LIST changes: +CEPH-507 PO; +METF500T19 PO; -METF500T8 PO; +NFD30TCR PO; -NIFE30TA82 PO; +OMEP40CA27 PO
== END 2019-09-29 | disposition home or self-care (01) ==
LOC: CR 10:52
PROVIDERS: ATTEND Internal Medicine Cardiovascular Disease
DX: Z48.812 Encounter for surgical aftercare following surgery on the circulatory system (principal); Z95.5 Presence of coronary angioplasty implant and graft
CPT/HCPCS: 93798

== ENCOUNTER 2019-10-16 11:06 | Outpatient (RCR) | payer MEDICARE, MEDICAID ==
[~2019-10-16 11:06] MED LIST changes: -MONT10TA24 PO; +MONT10TA26 PO; -NFD30TCR PO; +NIFE-25 PO
== END 2019-12-29 | disposition home or self-care (01) ==
LOC: CR 11:06
PROVIDERS: ATTEND Internal Medicine Cardiovascular Disease
DX: Z48.812 Encounter for surgical aftercare following surgery on the circulatory system (principal); Z95.5 Presence of coronary angioplasty implant and graft
CPT/HCPCS: 93798

== ENCOUNTER 2019-11-15 10:57 | Outpatient (RCR) | payer MEDICARE, MEDICAID | END 2019-11-20 | disposition home or self-care (01) | LOC: CR3 10:57 | PROVIDERS: ATTEND Internal Medicine Cardiovascular Disease | DX: Z29.8 Encounter for other specified prophylactic measures (principal) ==

== ENCOUNTER → 2020-03-04 | Outpatient (CLI) | payer MEDICARE, MEDICAID ==
[~2020-03-04] VITALS: Ht 171 cm; Wt 114.0 kg
[~2020-03-04] MED LIST changes: +CATHETER FLUSH 10 ML SYR IV PRN; +METF-865 PO; -METF500T19 PO; +REGADENOSON 0.4 MG/5 ML SYR (LEXISCAN) IV ONE
[2020-03-04 09:14] VITALS: BP 119/51
--- NOTE | 2020-03-04 14:44 | Cardiology Stress Test Report ---
Stress Test Report Date of Procedure/Referring: Date of Procedure: Mar 04, 2020 PCP Kaitlin Don MD Admitting Physician Nuvia Wilson DO Indications: Coronary artery disease Baseline Heart Rate: 77 Baseline Blood Pressure: Blood Pressure Systolic: 119 Blood Pressure Diastolic: 51 Baseline EKG: Baseline EKG: normal sinus rhythm Summary After explaining the procedure to the patient, she signed a consent and then brought to the stress nuclear laboratory. Patient received 0.4 mg Lexiscan for stress test, ECG, heart rate and blood pressure were monitored continuously. Resting and stress dose of radio tracer were injected, imaging was acquired and reviewed in short axis, horizontal long axis and vertical long axis views. TID 0.96 SSS: 4 SDS: 4 EF: 58 1. Patient tolerated Lexiscan well 2. Breast attenuation with typical female pattern, no significant ischemia or infarction on SPECT images 3. Normal left ventricular size, EF 58 percent KAITLIN DON MD Mar 04, 2020 14:44
== END ==
LOC: CARD 07:38
PROVIDERS: ATTEND Internal Medicine Cardiovascular Disease
DX: I25.10 Atherosclerotic heart disease of native coronary artery without angina pectoris (principal); I82.409 Acute embolism and thrombosis of unspecified deep veins of unspecified lower extremity; I10 Essential (primary) hypertension; E78.2 Mixed hyperlipidemia; Z72.0 Tobacco use
CPT/HCPCS: 78452; 93017; A9502

== ENCOUNTER → 2021-06-23 | Outpatient (CLI) | payer MEDICARE, MEDICAID ==
[~2021-06-23] MED LIST changes: -CATHETER FLUSH 10 ML SYR IV PRN; -CLIN150C17 PO; +CLIN150C20 PO; -CLIN300C11 PO; +CLIN300C12 PO; -METO10TA3 PO; -MONT10TA26 PO; +MONT10TA32 PO; +MTC10T PO; -OMEP40CA27 PO; +OMEP40CA6 PO; -REGADENOSON 0.4 MG/5 ML SYR (LEXISCAN) IV ONE
== END ==
LOC: CARD 13:00
PROVIDERS: ATTEND Internal Medicine Cardiovascular Disease
DX: I10 Essential (primary) hypertension (principal)
CPT/HCPCS: 93306

== ENCOUNTER → 2021-07-09 | Outpatient (CLI) | payer MEDICARE, MEDICAID ==
[~2021-07-09] MED LIST changes: +CLIN-144 PO; -CLIN300C12 PO
== END ==
LOC: LABNPT 06:26
PROVIDERS: ATTEND Podiatrist
DX: Z01.812 Encounter for preprocedural laboratory examination (principal); Z20.822 Contact with and (suspected) exposure to COVID-19
CPT/HCPCS: 87635

== ENCOUNTER → 2022-04-21 | Outpatient (CLI) | payer MEDICARE, MEDICAID ==
[~2022-04-21] MED LIST changes: +CATHETER FLUSH 10 ML SYR IV PRN; +CYCL10TA25 PO; +FENO200C27 PO; +HOLD METFORMIN - RECEIVED CONTRAST 20 ML VIAL IV SCH; +IOHEXOL 350 MG/ML 150 ML (OMNIPAQUE 350) VIAL IV ONE; +MONT-40 PO; -MONT10TA32 PO; +NS 100 ML (IVPB) BAG IV ONE
--- NOTE | 2022-04-21 12:03 | Diagnostic Imaging Report ---
EXAMINATION: CT angiography aorta and lower extremity with runoffs. TECHNIQUE: Multiple contiguous axial images were obtained through the abdomen , pelvis and lower extremities after administration of intravenous contrast. 3D MIP reconstructed CTA acquisition were then performed. All CT scans use one or more of the following dose optimizing techniques: automated exposure control, MA and/or KvP adjustment based on a patient size and exam type, or iterative reconstruction. HISTORY: Peripheral vascular disease. COMPARISON: None available. FINDINGS: Vascular findings: Abdominal aorta: No stenosis. Celiac artery: No stenosis. Superior mesenteric artery: No stenosis. Right renal artery: Mild stenosis proximally. Left renal artery: No stenosis. Inferior mesenterica artery: No stenosis. Right common iliac artery: No stenosis. Right external iliac artery: No stenosis. Right common femoral artery: No stenosis. Right superficial femoral artery: No stenosis. Right deep femoral artery: No stenosis. Right popliteal artery: No stenosis. Right posterior tibial artery: Mild stenosis. Right anterior tibial artery: No stenosis. Right peroneal artery: No stenosis. Right ankle and foot vessels: Patent with two-vessel runoff to the foot. Left common iliac artery: No stenosis. Left external iliac artery: No stenosis. Left common femoral artery: No stenosis. Left superficial femoral artery: No stenosis. Left deep femoral artery: No stenosis. Left popliteal artery: No stenosis. Left posterior tibial artery: No stenosis. Left anterior tibial artery: No stenosis. Left peroneal artery: No stenosis. Left ankle and foot vessels: Patent with two-vessel runoff to the foot. Other findings: Limited views of the lower thorax are unremarkable. The liver is normal without focal lesion. There is no biliary ductal dilation. Gallbladder is absent. Pancreas is normal. Spleen is normal. Adrenal glands are normal. The kidneys are normal. There is no hydronephrosis. Urinary bladder is normal. Bowel is normal in caliber without obstruction or inflammation. An inferior vena cava filter is present. There is a small fluid collection in the gastro-hepatic ligament, potentially related to prior surgery or pancreatitis. No abdominal or pelvic lymphadenopathy. There are no suspicious osseus lesions. There has been a spinal fusion. IMPRESSION: 1. No high-grade stenosis in either lower extremity. Dictated by: Dictated on workstation # [id number]
== END ==
LOC: RAD 10:46
PROVIDERS: ATTEND Physician Assistant
DX: I73.89 Other specified peripheral vascular diseases (principal)
CPT/HCPCS: 75635

== ENCOUNTER → 2022-07-08 | Outpatient (CLI) | payer MEDICARE, MEDICAID ==
[~2022-07-08] MED LIST changes: -CATHETER FLUSH 10 ML SYR IV PRN; -HOLD METFORMIN - RECEIVED CONTRAST 20 ML VIAL IV SCH; -IOHEXOL 350 MG/ML 150 ML (OMNIPAQUE 350) VIAL IV ONE; -NS 100 ML (IVPB) BAG IV ONE
--- NOTE | 2022-07-08 16:37 | Diagnostic Imaging Report ---
Indication: Routine screening. Comparison is made with prior mammogram 04/11/2018. 2-D and 3-D bilateral screening mammography was performed with CAD. Scattered fibroglandular densities are identified bilaterally. There are benign calcifications throughout both breasts. No mass or malignant-appearing microcalcifications are seen. Axillae are unremarkable. IMPRESSION: BI-RADS Category 2. No mammographic features suspicious for malignancy are identified. ACR BI-RADS Category 2: Benign findings. Result letter will be mailed to the patient. Note: At least 10% of breast cancer is not imaged by mammography. Dictated on workstation # [id number]
== END ==
LOC: RAD 11:02
PROVIDERS: ATTEND Family Medicine
DX: Z12.31 Encounter for screening mammogram for malignant neoplasm of breast (principal)
CPT/HCPCS: 77063; 77067

== ENCOUNTER → 2023-01-13 | Outpatient (CLI) | payer MEDICARE, MEDICAID ==
[~2023-01-13] MED LIST changes: -INSU100I29 SC; +INSU100I30 SC
== END ==
LOC: CARD 08:54
PROVIDERS: ATTEND Internal Medicine Cardiovascular Disease
DX: I10 Essential (primary) hypertension (principal)
CPT/HCPCS: 93306

== ENCOUNTER → 2023-02-22 | Outpatient (CLI) | payer MEDICARE, MEDICAID ==
[~2023-02-22] MED LIST changes: +CATHETER FLUSH 10 ML SYR IVP PRN; +REGADENOSON 0.4 MG/5 ML SYR (LEXISCAN) IV ONE
[2023-02-22 13:15] VITALS: BP 171/99
--- NOTE | 2023-02-22 15:53 | Cardiology Stress Test Report ---
Stress Test Report Date of Procedure/Referring: Date of Procedure: Feb 22, 2023 PCP Nuvia Wilson DO Admitting Physician Admitting Physician: Attending Physician: Bravo Don MD Indications: CP Baseline Heart Rate: 88 Baseline Blood Pressure: Blood Pressure Systolic: 171 Blood Pressure Diastolic: 99 Baseline Vitals Vital Signs Date Time Temp Pulse Resp B/P (MAP) Pulse Ox O2 Delivery O2 Flow Rate FiO2 02/22/23 13:15 88 171/99 (123) 97 Baseline EKG: Baseline EKG: NSR Summary After explaining the procedure to the patient, she signed a consent and then brought to the stress nuclear laboratory. Patient received 0.4 mg Lexiscan for stress test, ECG, heart rate and blood pressure were monitored continuously. Resting and stress dose of radio tracer were injected, imaging was acquired and reviewed in short axis, horizontal long axis and vertical long axis views. TID: 1.16 SSS: 7 SDS: 3 EF: 59 Patient tolerated Lexiscan well Reversible ischemia involving the inferior wall and inferolateral wall Normal left ventricular size, ejection fraction 59% Copy Copies To 1: NUVIA WILSON BASHAR J MD Feb 22, 2023 15:53
== END ==
LOC: CARD 12:00
PROVIDERS: ATTEND Internal Medicine Cardiovascular Disease
DX: I10 Essential (primary) hypertension (principal); I25.10 Atherosclerotic heart disease of native coronary artery without angina pectoris
CPT/HCPCS: 78452; 93017; A9502

== ENCOUNTER 2023-03-08 12:59 | Day surgery (SDC) | payer MEDICARE, MEDICAID ==
[2023-03-08] VITALS (9 sets, daily range): BP systolic 117–153; BP diastolic 46–78
[~2023-03-08] VITALS: Ht 172 cm; Wt 117.0 kg
[~2023-03-08 12:59] MED LIST changes: -CATHETER FLUSH 10 ML SYR IVP PRN; -REGADENOSON 0.4 MG/5 ML SYR (LEXISCAN) IV ONE
[2023-03-08] MEDS ORDERED: HEParin (CATH LAB) 2,000 ML IV ONE (13:38)
[2023-03-08] MEDS ORDERED: NS IV 1000 ML 1,000 ML ONE (13:38)
[2023-03-08] MEDS ORDERED: LIDOCAINE 1% INJ 20 ML VIAL ONE (13:38)
[2023-03-08] MEDS ORDERED: NS IV 1000 ML 1,000 ML IV ONE (13:45)
[2023-03-08 14:19] LABS: HEMATOCRIT 42 % (35-52); HEMOGLOBIN 14.2 g/dL (11.5-16.0); MEAN CORPUSCULAR HEMOGLOBIN 28 pg (25-34); MEAN CORPUSCULAR HGB CONC 34 g/dL (32-36); MEAN CORPUSCULAR VOLUME 84 fL (80-99); MEAN PLATELET VOLUME 9.5 fL (9.0-12.2); PLATELET COUNT 223 10^3/uL (130-400)
[2023-03-08 14:31] LABS: ALBUMIN 4.5 GM/DL (3.2-4.5); POTASSIUM 4.3 MMOL/L (3.6-5.0); PROTHROMBIN TIME PATIENT 13.1 SEC (12.2-14.7)
[2023-03-08 14:32] LABS: CALCIUM 9.9 MG/DL (8.5-10.1)
[2023-03-08] MEDS ORDERED: CARV6.252 PO (14:32)
[2023-03-08] MEDS ORDERED: METF-397 PO (14:32)
[2023-03-08] MEDS ORDERED: ESOM40CA52 PO (14:32)
[2023-03-08] MEDS ORDERED: INSU500V SQ (14:32)
[2023-03-08] MEDS ORDERED: DOCU100C37 PO (14:32)
[2023-03-08] MEDS ORDERED: EMPA25TA PO (14:32)
[2023-03-08] MEDS ORDERED: PLEC3TAB2 PO (14:32)
[2023-03-08 14:33] LABS: TOTAL PROTEIN 7.7 GM/DL (6.4-8.2)
[2023-03-08 14:35] LABS: BILIRUBIN,TOTAL 0.4 MG/DL (0.1-1.0)
[2023-03-08 14:37] LABS: CREATININE SERUM 1.27 MG/DL (0.60-1.30)
[2023-03-08] MEDS ORDERED: fentaNYL INJ 100 MCG/2 ML AMP ONE (14:47)
[2023-03-08] MEDS ORDERED: VERAPAMIL 5 MG/2 ML (CALAN) VIAL IV ONE (14:48)
[2023-03-08] MEDS ORDERED: NITRO DRIP 25000 MCG/D5W 250 ML IV ONE (14:48)
[2023-03-08] MEDS ORDERED: HEParin 1000 UNIT/ML (10ML VIAL) FOR BOLUS ONE (14:48)
[2023-03-08] MEDS ORDERED: MIDAZOLAM 5 MG/5 ML (VERSED) VIAL ONE (14:48)
[2023-03-08] MEDS ORDERED: diphenhydrAMINE 50 MG/ML INJ (BENADRYL) ONE (16:05)
[2023-03-08] MEDS ORDERED: MIDAZOLAM 2 MG/2 ML (VERSED) VIAL ONE (16:09)
--- NOTE | 2023-03-08 16:46 | Cardiac Procedure Note-CS/ASA ---
Pre-Procedure Note Pre-Op Procedure Note Date of Available H&P: Feb 23, 2023 Date H&P Reviewed: Mar 08, 2023 Time H&P Reviewed: 15:00 History & Physical: H&P Reviewed, No changes noted Pre-Operative Diagnosis: Coronary artery disease Moderate Sedation PreProcedure ASA Score 3 Airway Lungs Heart ASA score ASA 1: a normal healthy patient ASA 2: a patient with a mild systemic disease (mid diabetes, controlled hy pertension, obesity ASA 3: a patient with a severe systemic disease that limits activity (angina, COPD, prior Myocardial infarction) ASA 4: a patient with an incapacitating disease that is a constant threat to life (CHF, renal failure) ASA 5: a moribund patient not expected to survive 24 hrs. (ruptured aneurysm) ASA 6: a declared brain- patient whose organs are being harvested. For emergent operations, add the letter E after the classification Mallampati Classification Grade 2 Sedation Plan Analgesia, Amnesia, Plan communicated to team members The patient is an appropriate candidate to undergo the planned procedure, sedation, and anesthesia. The patient immediately re-assessed prior to indication. ELOY SHRESTHA MD FACP FAC CCDS Mar 08, 2023 16:46
--- NOTE | 2023-03-08 16:54 | Cardiac Cath Report ---
CARDIAC CATHETERIZATION DATE OF PROCEDURE: 03-08-23 INDICATION: Abnormal stress test HISTORY: The patient is a 47 year old female with h/o L cor stenting in 2019 with Promus Elite 3.5 x 20 who underwent MPI [address] Don on 02-22-23 and was found to have considerable inferior ischemia PROCEDURES PERFORMED: 1. Cor angio 2. LHC and LV angiogram 3. iFR or RCA PROCEDURE DESCRIPTION: Diagnostic procedure: After informed consent and in the fasting state, left heart catheterization was performed through the R radial artery utilizing a 6 [place] system by percutaneous approach. 6 F TIG for cor angio. 5 F Pig tail for LHC. All catheters were exchanged over a guidewire. iFR procedure: Pt was experiencing wrist and forearm discomfort likely due to radial artery spasm. We removed the 6F JR4 guide catheter inserted for iFR of an RCA lesion (because of difficult with torquing and R forearm/wrist discomfort) and use the R groin approach for iFR. 6F in R femoral artery and then 6F JR4 guide for RCA iFR. Finally, following completion of procedure and removal of guide, angio of R fem artery and use of Mynx for hemostasis of the femoral artery. Wrist band for hemostasis of the R radial artery LV angiography: - LVEF approx 65%. No regional wall motion abnormality seen in the [place] projection HEMODYNAMICS: LVEDP 29 mmHg. No significant pressure gradient on pullback across the aortic valve CORONARY ANGIOGRAPHY: Left main coronary artery: Ok Left anterior descending coronary artery: Ok, patent mid-vessel stent Left circumflex coronary artery: Ok Right coronary artery: Dominant. 30% mid-vessel stenosis (iFR 1) IMPRESSION: 1. Mild CAD. RCA has 30% mid-vessel stenosis with essentially normal iFR. LAD has a patent stent in its mid portion. LCx and LMCA do not exhibit significant disease 2. LVEDP 29 mmHg 3. LVEF 65% PLAn Medical therapy. Risk factor modification. Outpatient f/u. ELOY SHRESTHA MD [facility] CCDS Mar 08, 2023 16:54
--- NOTE | 2023-03-08 17:07 | Discharge Inst-Cardiology ---
Discharge Inst-Cardiac Discharge Medications Continued Medications: Allopurinol (Allopurinol) 300 Mg Tablet 300 MG PO 1800, TAB Aspirin (Aspirin) 81 Mg Tab.chew 81 MG PO DAILY, TAB Atorvastatin Calcium (Lipitor) 40 Mg Tablet 40 MG PO 1800, TAB Carvedilol (Carvedilol) 6.25 Mg Tablet 6.25 MG PO BID, TAB Cholecalciferol (Vitamin D3) (Vitamin D3) 2,000 Unit Capsule 2000 UNIT PO DAILY, CAP Cyanocobalamin (Vitamin B-12) (Vitamin B-12) 1,000 Mcg Tablet 1000 MCG PO DAILY, TAB Cyclobenzaprine HCl (Cyclobenzaprine HCl) 10 Mg Tablet 20 MG PO BID, TAB TAKES 2 (10MG) TABLETS Docusate Sodium (Docusate Sodium) 100 Mg Capsule 50 MG PO, CAP Duloxetine HCl (Duloxetine HCl) 60 Mg Capsule.dr 60 MG PO DAILY, CAP Empagliflozin (Jardiance) 25 Mg Tablet 25 MG PO DAILY, TAB Esomeprazole Magnesium (Esomeprazole Magnesium) 40 Mg Capsule.dr 40 MG PO DAILY, CAP Fenofibrate,Micronized (Fenofibrate) 200 Mg Capsule 200 MG PO 1800 Insulin Regular, Human (Humulin R U-500) 500 Unit/Ml (Concentrated) Vial 120 UNIT SQ AC, EA Levothyroxine Sodium (Levothyroxine Sodium) 175 Mcg Tablet 175 MCG PO 1800, TAB Loratadine (Loratadine) 10 Mg Tablet 10 MG PO DAILY, TAB Melatonin (Melatonin) 10 Mg Tablet 10 MG PO HS, TAB Metoclopramide HCl (Metoclopramide HCl) 10 Mg Tablet 10 MG PO 1800, TAB TAKES 2 (10MG) TABLETS Multivit-Min/Iron/Folic/Vit K1 (Centrum Chewables Adults Tab) 1 Each Tab.chew 1 EACH PO DAILY, TAB Nifedipine (Nifedipine ER) 30 Mg Tab.er.24 30 MG PO HS, TAB Oxycodone HCl (Oxycontin) 40 Mg Tab.er.12h 40 MG PO BID, TAB Oxycodone HCl (Oxycodone HCl) 10 Mg Tablet 10 MG PO Q4H PRN for PAIN-SEVERE for 7 Days, TAB Plecanatide (Trulance) 3 Mg Tablet 3 MG PO DAILY, TAB Prasugrel HCl (Effient) 10 Mg Tablet 10 MG PO DAILY, TAB Discontinued Medications: Metformin HCl (Metformin HCl) 500 Mg Tablet 500 MG PO TID, TAB Patient Instructions Patient Instructions: Hold METFROMIN until the morning of 03/11/23, then resume previous home dose of metformin ELOY SHRESTHA MD [facility] CCDS Mar 08, 2023 17:07
--- NOTE | 2023-03-08 17:08 | Discharge Inst-Post CATH ---
Discharge Inst-CATH/EP Post Cardiac Cath/EP D/C Inst Follow Up/Plan F/u with Dr Don in one month ACTIVITY * Go Home directly and rest. * Limit activity of the leg (or wrist if it was used) for 7 days including aerobics, swimming, jogging, bicycling, etc. * Restrict stair-climbing for 7 days if possible, if not, climb up with your n on-cath leg, then bring together on the same step. * Avoid lifting, pushing, pulling or excessive movement of the affected ex tremity for 7 days. * Customary sexual activity may be resumed after 2 days-use caution not to use a position that strains or causes pain to the affected extremity. * No driving for 24 hours. * NO SMOKING. * Avoid straining for bowel movements for 7 days. * Gentle walking on level ground is allowed. * Returning to work will depend on the type of procedure and the results. Your doctor will discuss this with you. CALL YOUR DOCTOR FOR ANY OF THE FOLLOWING: *If bleeding from the puncture site occurs- Apply gentle pressure to site with clean cloth and call your doctor or EMS. * If a knot or lump forms under the skin, increases in size, or causes pain. * If bruising appears to be worsening or moving further down your leg instead of disappearing. * Temperature above 101 F. CARE OF YOUR GROIN INCISION; * Bruising or purple discoloration of the skin near the puncture site is common. * You may shower only, no bathtub bathing for 5 days. Be careful to avoid slipping as your leg may feel stiff. * If a closure device was used on your femoral artery, please see the attached guide regarding care of the device and your leg. * Leave dressing on FOR 24 hours. CARE OF YOUR WRIST INCISION; * Bruising or purple discoloration of the skin near the puncture site is common. * You may shower. * DO NOT submerge wrist. * Leave dressing on FOR 24 hours. [facility]LOY SHRESTHA MD [facility] CCDS Mar 08, 2023 17:08
[2023-03-08] MEDS ORDERED: PATIENT MAY USE OWN MEDS, ALL PO SCH (17:15)
[2023-03-08] MEDS: NS IV 1000 ML 1,000 ML IV SCH ×2 (17:59→18:00)
[2023-03-08] MEDS ORDERED: morphine INJ 4 MG/ML 1 ML (VIAL/SYRINGE) IV NR (18:00)
[2023-03-08] MEDS ORDERED: morphine INJ 10 MG/ML 1ML (SYR OR VIAL) IVP STA (18:06)
[2023-03-08] MEDS ORDERED: ACETAMINOPHEN 325 MG TABLET PO PRN (18:15)
== END 2023-03-08 20:25 | disposition home or self-care (01) ==
LOC: CATH 12:59 → CSD 17:10 → CATH 20:25
PROVIDERS: ATTEND Internal Medicine Cardiovascular Disease
DX: I25.10 Atherosclerotic heart disease of native coronary artery without angina pectoris (principal); E66.9 Obesity, unspecified; I12.9 Hypertensive chronic kidney disease with stage 1 through stage 4 chronic kidney disease, or unspecified chronic kidney disease; E78.2 Mixed hyperlipidemia; G89.29 Other chronic pain; I65.23 Occlusion and stenosis of bilateral carotid arteries; N18.9 Chronic kidney disease, unspecified; E11.22 Type 2 diabetes mellitus with diabetic chronic kidney disease; E03.9 Hypothyroidism, unspecified; Z95.5 Presence of coronary angioplasty implant and graft; Z79.82 Long term (current) use of aspirin; Z79.890 Hormone replacement therapy; Z87.891 Personal history of nicotine dependence; Z68.39 Body mass index [BMI] 39.0-39.9, adult
CPT/HCPCS: 80053; 80061; 85027; 85610; 85730; 87081; 93005; 93458; 93571; C1760; C1769; C1887; C1894 ×2; 36415

== ENCOUNTER → 2023-08-01 | Outpatient (CLI) | payer MEDICARE, MEDICAID ==
[~2023-08-01] MED LIST changes: +CARV6.252 PO; +DOCU100C37 PO; +EMPA25TA PO; +ESOM40CA52 PO; +INSU500V SQ; +METF-397 PO; +PLEC3TAB2 PO
--- NOTE | 2023-08-01 14:53 | Diagnostic Imaging Report ---
INDICATION: Routine screening. COMPARISON: 07/08/2022 and 04/11/2018. TECHNIQUE: 2D and 3D bilateral screening mammography was performed with CAD. FINDINGS: Scattered fibroglandular densities are identified bilaterally. The parenchymal pattern is stable. No mass or malignant-appearing microcalcifications are seen. There are scattered benign calcifications. The axillae are unremarkable. IMPRESSION: No mammographic features suspicious for malignancy are identified. ACR BI-RADS Category 2: Benign findings. Result letter will be mailed to the patient. Note: At least 10% of breast cancer is not imaged by mammography. Dictated by: Dictated on workstation # [id number]
== END ==
LOC: RAD 08:04
PROVIDERS: ATTEND Family Medicine
DX: Z12.31 Encounter for screening mammogram for malignant neoplasm of breast (principal)
CPT/HCPCS: 77063; 77067